=== PATIENT | female | born 1950 | race Caucasian/White ===

== ENCOUNTER 2018-08-29 09:40 | Emergency (ER) | payer MEDICARE, BC, SELFPAY ==
[2018-08-29] VITALS (33 sets, daily range): BP systolic 98–133; BP diastolic 55–78; PULSE 59–85; RESP 10–27; TEMP 37.2; O2SAT 91–100
--- NOTE | 2018-08-29 10:29 | DI.RAD_ITS ---
SYMPTOM/DIAGNOSIS: CHEST PAIN PA AND LATERAL CHEST: Comparison is made with . Heart size and pulmonary vasculature are within normal limits. There is fullness in the superior mediastinum and a superior mediastinal mass cannot be excluded. This may include an enlarged thyroid gland or residual thymic tissue. There is scarring or atelectasis in the left lung base. No focal consolidating infiltrate, effusion or pneumothorax is identified. There is hyperinflation of the lungs suggesting underlying COPD. Mild degenerative changes are seen in the spine. IMPRESSION: 1. No acute pulmonary process. 2. COPD. 3. Fullness in the superior mediastinum. A superior mediastinal mass cannot be excluded. CT scan of the chest with contrast is suggested for further evaluation.
[2018-08-29] MEDS: Lidocaine 2% Viscous 15 ML CUP (10:50)
[2018-08-29] MEDS: Mylanta Suspension 30 ML CUP PO (10:50)
[2018-08-29 11:20] LABS: Abs Immature Grans 0.02 k/cumm (0.0-0.09); Absolute Basophil Count 0.02 k/cumm (0.0-0.2); Absolute Eosinophil Count 0.06 k/cumm (0.0-0.7); Absolute Lymphocyte Count 2.19 k/cumm (1.2-3.4); Absolute Monocyte Count 0.46 k/cumm (0.11-0.7); Absolute Neutrophil Count 4.96 k/cumm (1.2-6.7); Basophils % 0.3; Eosinophils % 0.8; HCT 42.6 % (36.0-46.0); HGB 14.5 g/dL (12.0-15.5); Immature Grans % 0.3; Lymphocytes % 28.4; Mean Corpuscular Hemoglobin 31.7 pg (27.0-33.0); Mean Platelet Volume 9.6 fL (8.0-11.0); Neutrophils % 64.2; Platelet Count 241 x1000/uL (130-400); RBC 4.58 m/cumm (4.00-5.20); White Blood Cell Count 7.71 k/cumm (4.4-10.8)
[2018-08-29 11:38] LABS: ALT 22 U/L (12-78); AST 17 U/L (15-37); Albumin 3.4 g/dL (3.4-5.0); Alkaline Phosphatase 128 U/L (46-116); Anion Gap 8.1 mmol/L (3-11); BUN 11 mg/dL (7-18); Bilirubin, Total 0.7 mg/dL (0.2-1.0); CO2 27.9 mmol/L (21.0-32.0); CREATININE 0.75 mg/dL (0.55-1.02); Calcium 8.9 mg/dL (8.5-10.1); Chloride 105 mmol/L (98-107); Glucose 107 mg/dL (70-100); Magnesium 1.9 mg/dL (1.8-2.4); Potassium 3.8 mmol/L (3.5-5.1); Sodium 141 mmol/L (136-145); Total Protein 7.3 g/dL (6.4-8.2)
[2018-08-29 11:40] LABS: Troponin I < 0.02 ng/mL (0.00-0.06)
--- NOTE | 2018-08-29 12:50 | W.ED.GENAD ---
Discharge Plan Disposition Patient Disposition: HOME Condition: Good Discharge Details Chief Complaint: Chest Pain Clinical Impression: Mediastinal mass Primary Care Provider: Tita Pettit ED Provider: Jamal Woodson Home Meds and New Rx's Prescriptions: Continue ZOVIRAX 2 GM CREAM..G. 1 christian Topical QID PRNQty: 3 RF: 4 No Action epinephrine [EpiPen 2-Adolfo] 0.3 mg/0.3 mL auto-injector 0.3 mg IM ONCE PRNRF: 0 Discharge Instructions Instructions: Thoracic Pain (ED) Additional Instructions: Return immediately to the emergency department for any new or worsening symptoms including any shortness of breath, severe pain, or any further concerns he may have. Otherwise you should follow-up with your primary care provider tomorrow at 3 PM for reassessment and arrangement of further test Referrals: Tita Pettit MD, [place] [Primary Care Provider] - 08/30/18 3:00 pm Discharge Data Discharge Date/Time-TO BE ENTERED AT DEPARTURE: 08/29/18 14:47 Medical Decision Making Patient presenting to the emergency department for chief complaint of chest/abdominal pain. Patient states that this occurred approximately 1 hour after eating lunch yesterday. She states that it was intermittent throughout yesterday and seemed to worsen yesterday evening when she lied down so she had to sleep with additional pillows on her bed. This morning she had some symptoms that have now resolved but called her primary care office who recommended she come to the emergency department. Patient states that she is asymptomatic. Physical exam is unremarkable for any cardiac or respiratory findings and patient does have mild epigastric tenderness. Plan to check labs including troponin for possible silent AR, and radiological imaging of the the chest, otherwise highly suspicious more of GERD/heartburn. After review of initial which show nondiagnostic non-worrisome findings and negative initial troponin patient was reassessed. Patient stated mild episode of return of symptoms and was ordered GI cocktail. After review of chest x-ray that does show an abnormality within the mediastinum and recommendation for CT imaging IV access was obtained and patient went for CT imaging. Patient did state Maalox resolved her symptoms and she is now asymptomatic again Spoke with radiologist regarding CT findings and radiologist states a mediastinal mass that measures 7 x 5 x 10 cm in size. He states secondary findings of gallstones and atelectasis but stated no other acute findings noted. Radiologist did state possibly thyroid in origin so TSH was ordered Given significant mediastinal mass did make attempt to contact patient's primary care provider but they were unavailable to speak on the phone but appointment was set up for patient for tomorrow for further discussion and further testing of evaluation of mediastinal mass that may need nuclear medicine studies for evaluation. Spoke clearly with patient in regards to findings of mediastinal mass with need of further testing and close follow-up. After thorough discussion patient stated no further needs questions or concerns at this time. Patient was encouraged to return to the emergency department for any new or worsening symptoms. HPI General Mode of arrival: ambulatory. Date/Time Provider Initiated Documentation: 08/29/18 10:01. Limitations to Documentation: no limitations. Information obtained by: patient. History of Present Illness 67 year old F presents to the emergency department with the chief complaint of chest pain, with intensity rated at 7. Quality is described as burning, aching and dull, and is localized to the chest and abdomen. Patient reports radiation to back. Patient started experiencing this day(s) (1) and it has been intermittent and now resolved. other things that improve symptom(s), (Upright position) Other factors that worsen symptoms . Related Data Home Medications Medication Instructions Recorded Confirmed Zovirax 1 christian TOPICAL QID PRN #3 script 03/27/13 08/30/18 epinephrine 0.3 mg/0.3 mL 0.3 mg IM ONCE PRN syringe 08/30/18 injection, auto-injector Allergies Allergy/AdvReac Type Severity Reaction Status Date / Time Sulfa (Sulfonamide Allergy Unknown HIVES Unverified 08/29/18 11:43 Antibiotics) General Stated Complaint: Chest Pain DELLA: 2 Review of Systems Constitutional Denies body ache(s), Denies chills and Denies fever(s) Cardiovascular Reports as per HPI, Reports chest pain, Denies diaphoresis, Denies syncope, Denies rapid heart rate, Denies pedal edema, Denies irregular heart rhythm, Denies claudication and Denies dyspnea Respiratory Denies cough and Denies dyspnea Gastrointestinal Reports abdominal pain, Denies melena, Reports heartburn, Denies diarrhea, Denies nausea and Denies vomiting Integumentary/Breasts Denies rash Neurologic Denies confusion, Denies syncope and Denies sensory deficit Psychiatric Denies confusion [facility] Family History Mother Heart disease Smoker Father Neoplasm Smoker Sister No problems noted. Sister No problems noted. Sister Smoker Brother Smoker Brother Hyperlipidemia Brother Benign brain tumor Smoker Brother Smoker Grandfather Heart disease Grandfather Pulmonary emphysema Smoker Grandmother Diabetes Aortic aneurysm Heart disease Grandmother Neoplasm Son No problems noted. Daughter No problems noted. Daughter No problems noted. Daughter No problems noted. Social History household members: spouse and other details: 2 marital status: current occupational status: retired pets and animals: No Smoking/Tobacco Use Status: Never alcohol intake: never substance use type: does not use special courtney needs: No Surgical History Arthroplasty of knee (~12/1988) Colposcopy (08/16/16) Kidney Stone Extraction (~03/1996) Tonsillectomy (~1961) Exam Const General: cooperative, no acute distress and not ill appearing Orientation: alert, awake and oriented x3 HENMT Mouth: moist mucous membranes Resp Effort & Inspection: normal respiratory effort, able to speak in complete sentences and no respiratory distress Cardio Jugular venous pressure: no JVD Rate: regular rate Rhythm: regular rhythm Heart Sounds: S1 normal and S2 normal Bruits: no abdominal aortic bruits and no carotid bruits Pulses: brachial pulses present bilaterally 2+ GI Inspection: normal to inspection Palpation: soft and tender in the epigastrum (mild) Auscultation: normal bowel sounds Skin General skin exam: no rashes or lesions noted Neuro General: alert, awake, oriented x3, moves all extremities and no focal motor deficits Sensory Exam: no sensory deficits noted Course Vital Signs Respiratory Rate 17 08/29/18 09:54 Pulse Oximetry 97 08/29/18 09:54 Temperature 37.2 C 08/29/18 10:10 Temperature Source Skin 08/29/18 10:10 Pulse 73 08/29/18 12:01 Pulse 71 08/29/18 12:10 Respiratory Rate 16 08/29/18 12:13 Respiratory Effort 08/29/18 12:13 Respiratory Depth Normal 08/29/18 12:13 Respiratory Pattern Normal 08/29/18 12:13 Blood Pressure 98/55 L 08/29/18 12:01 Blood Pressure Mean 66 08/29/18 12:01 Pulse Oximetry 94 L 08/29/18 12:10 Oxygen Delivery Method Room Air 08/29/18 10:10 Oxygen Flow Rate 0 08/29/18 10:10 Pain Level 0 08/29/18 12:13 Lab/Test Results Lab/Test Results: Laboratory Tests Range/Units 08/29/18 08/29/18 11:10 11:10 WBC (4.4-10.8) k/cumm 7.71 RBC (4.00-5.20) m/cumm 4.58 Hgb (12.0-15.5) g/dL 14.5 Hct (36.0-46.0) % 42.6 MCV (80-95) fL 93.0 MCH (27.0-33.0) pg 31.7 MCHC (32.0-36.0) g/dL 34.0 RDW (11.7-14.6) % 13.0 Plt Count (130-400) x1000/uL 241 MPV (8.0-11.0) fL 9.6 Immature Gran % 0.3 Neutrophils % 64.2 Lymphocytes % 28.4 Monocytes % 6.0 Eosinophils % 0.8 Basophils % 0.3 Absolute Neutrophils (1.2-6.7) k/cumm 4.96 Absolute Lymphocytes (1.2-3.4) k/cumm 2.19 Absolute Monocytes (0.11-0.7) k/cumm 0.46 Absolute Eosinophils (0.0-0.7) k/cumm 0.06 Absolute Basophils (0.0-0.2) k/cumm 0.02 Sodium (136-145) mmol/L 141 Potassium (3.5-5.1) mmol/L 3.8 Chloride (98-107) mmol/L 105 Carbon Dioxide (21.0-32.0) mmol/L 27.9 Anion Gap (3-11) mmol/L 8.1 BUN (7-18) mg/dL 11 Creatinine (0.55-1.02) mg/dL 0.75 Estimated GFR/1.73 m2 (mL/min/1.73m2) >= 60.00 Glucose (70-100) mg/dL 107 H Calcium (8.5-10.1) mg/dL 8.9 Magnesium (1.8-2.4) mg/dL 1.9 Total Bilirubin (0.2-1.0) mg/dL 0.7 Conjugated Bilirubin (0.00-0.20) mg/dL 0.10 AST (15-37) U/L 17 ALT (12-78) U/L 22 Alkaline Phosphatase (46-116) U/L 128 H Troponin I (0.00-0.06) ng/mL < 0.02 Total Protein (6.4-8.2) g/dL 7.3 Albumin (3.4-5.0) g/dL 3.4
--- NOTE | 2018-08-29 12:57 | ED.GENADUL_ITS ---
Discharge Plan Disposition Patient Disposition: HOME Condition: Good Discharge Details Chief Complaint: Chest Pain Clinical Impression: Mediastinal mass Primary Care Provider: Tita Pettit ED Provider: Jamal Woodson Home Meds and New Rx's Prescriptions: Continue ZOVIRAX 2 GM CREAM..G. 1 christian Topical QID PRNQty: 3 RF: 4 No Action epinephrine [EpiPen 2-Adolfo] 0.3 mg/0.3 mL auto-injector 0.3 mg IM ONCE PRNRF: 0 Discharge Instructions Instructions: Thoracic Pain (ED) Additional Instructions: Return immediately to the emergency department for any new or worsening symptoms including any shortness of breath, severe pain, or any further concerns he may have. Otherwise you should follow-up with your primary care provider tomorrow at 3 PM for reassessment and arrangement of further test Referrals: Tita Pettit MD, [place] [Primary Care Provider] - 08/30/18 3:00 pm Discharge Data Discharge Date/Time-TO BE ENTERED AT DEPARTURE: 08/29/18 14:47 Medical Decision Making Patient presenting to the emergency department for chief complaint of chest/ abdominal pain. Patient states that this occurred approximately 1 hour after eating lunch yesterday. She states that it was intermittent throughout yesterday and seemed to worsen yesterday evening when she lied down so she had to sleep with additional pillows on her bed. This morning she had some symptoms that have now resolved but called her primary care office who recommended she come to the emergency department. Patient states that she is asymptomatic. Physical exam is unremarkable for any cardiac or respiratory findings and patient does have mild epigastric tenderness. Plan to check labs including troponin for possible silent MT, and radiological imaging of the the chest, otherwise highly suspicious more of GERD/heartburn. After review of initial which show nondiagnostic non-worrisome findings and negative initial troponin patient was reassessed. Patient stated mild episode of return of symptoms and was ordered GI cocktail. After review of chest x-ray that does show an abnormality within the mediastinum and recommendation for CT imaging IV access was obtained and patient went for CT imaging. Patient did state Maalox resolved her symptoms and she is now asymptomatic again Spoke with radiologist regarding CT findings and radiologist states a mediastinal mass that measures 7 x 5 x 10 cm in size. He states secondary findings of gallstones and atelectasis but stated no other acute findings noted. Radiologist did state possibly thyroid in origin so TSH was ordered Given significant mediastinal mass did make attempt to contact patient's primary care provider but they were unavailable to speak on the phone but appointment was set up for patient for tomorrow for further discussion and further testing of evaluation of mediastinal mass that may need nuclear medicine studies for evaluation. Spoke clearly with patient in regards to findings of mediastinal mass with need of further testing and close follow-up. After thorough discussion patient stated no further needs questions or concerns at this time. Patient was encouraged to return to the emergency department for any new or worsening symptoms. HPI General Mode of arrival: ambulatory . Date/Time Provider Initiated Documentation: 08/29/18 10:01 . Limitations to Documentation: no limitations . Information obtained by: patient . History of Present Illness 67 year old F presents to the emergency department with the chief complaint of chest pain, with intensity rated at 7. Quality is described as burning, aching and dull, and is localized to the chest and abdomen. Patient reports radiation to back. Patient started experiencing this day(s) (1) and it has been intermittent and now resolved. other things that improve symptom(s), ( Upright position) Other factors that worsen symptoms . Related Data Home Medications Medication Instructions Recorded Confirmed Zovirax 1 christian TOPICAL QID PRN #3 script 03/27/13 08/30/18 epinephrine 0.3 mg/0.3 mL 0.3 mg IM ONCE PRN syringe 08/30/18 injection, auto-injector Allergies Allergy/AdvReac Type Severity Reaction Status Date / Time Sulfa (Sulfonamide Allergy Unknown HIVES Unverified 08/29/18 11:43 Antibiotics) General Stated Complaint: Chest Pain DELLA: 2 Review of Systems Constitutional Denies body ache(s), Denies chills and Denies fever(s) Cardiovascular Reports as per HPI, Reports chest pain, Denies diaphoresis, Denies syncope, Denies rapid heart rate, Denies pedal edema, Denies irregular heart rhythm, Denies claudication and Denies dyspnea Respiratory Denies cough and Denies dyspnea Gastrointestinal Reports abdominal pain, Denies melena, Reports heartburn, Denies diarrhea, Denies nausea and Denies vomiting Integumentary/Breasts Denies rash Neurologic Denies confusion, Denies syncope and Denies sensory deficit Psychiatric Denies confusion [facility] Family History Mother Heart disease Smoker Father Neoplasm Smoker Sister No problems noted. Sister No problems noted. Sister Smoker Brother Smoker Brother Hyperlipidemia Brother Benign brain tumor Smoker Brother Smoker Grandfather Heart disease Grandfather Pulmonary emphysema Smoker Grandmother Diabetes Aortic aneurysm Heart disease Grandmother Neoplasm Son No problems noted. Daughter No problems noted. Daughter No problems noted. Daughter No problems noted. Social History household members: spouse and other details: 2 marital status: current occupational status: retired pets and animals: No Smoking/Tobacco Use Status: Never alcohol intake: never substance use type: does not use special courtney needs: No Surgical History Arthroplasty of knee (~12/1988) Colposcopy (08/16/16) Kidney Stone Extraction (~03/1996) Tonsillectomy (~1961) Exam Const General: cooperative, no acute distress and not ill appearing Orientation: alert, awake and oriented x3 HENMT Mouth: moist mucous membranes Resp Effort & Inspection: normal respiratory effort, able to speak in complete sentences and no respiratory distress Cardio Jugular venous pressure: no JVD Rate: regular rate Rhythm: regular rhythm Heart Sounds: S1 normal and S2 normal Bruits: no abdominal aortic bruits and no carotid bruits Pulses: brachial pulses present bilaterally 2+ GI Inspection: normal to inspection Palpation: soft and tender in the epigastrum (mild) Auscultation: normal bowel sounds Skin General skin exam: no rashes or lesions noted Neuro General: alert, awake, oriented x3, moves all extremities and no focal motor deficits Sensory Exam: no sensory deficits noted Course Vital Signs Respiratory Rate 17 08/29/18 09:54 Pulse Oximetry 97 08/29/18 09:54 Temperature 37.2 C 08/29/18 10:10 Temperature Source Skin 08/29/18 10:10 Pulse 73 08/29/18 12:01 Pulse 71 08/29/18 12:10 Respiratory Rate 16 08/29/18 12:13 Respiratory Effort 08/29/18 12:13 Respiratory Depth Normal 08/29/18 12:13 Respiratory Pattern Normal 08/29/18 12:13 Blood Pressure 98/55 L 08/29/18 12:01 Blood Pressure Mean 66 08/29/18 12:01 Pulse Oximetry 94 L 08/29/18 12:10 Oxygen Delivery Method Room Air 08/29/18 10:10 Oxygen Flow Rate 0 08/29/18 10:10 Pain Level 0 08/29/18 12:13 Lab/Test Results Lab/Test Results: Laboratory Tests Range/Units 08/29/18 08/29/18 11:10 11:10 WBC (4.4-10.8) k/cumm 7.71 RBC (4.00-5.20) m/cumm 4.58 Hgb (12.0-15.5) g/dL 14.5 Hct (36.0-46.0) % 42.6 MCV (80-95) fL 93.0 MCH (27.0-33.0) pg 31.7 MCHC (32.0-36.0) g/dL 34.0 RDW (11.7-14.6) % 13.0 Plt Count (130-400) x1000/uL 241 MPV (8.0-11.0) fL 9.6 Immature Gran % 0.3 Neutrophils % 64.2 Lymphocytes % 28.4 Monocytes % 6.0 Eosinophils % 0.8 Basophils % 0.3 Absolute Neutrophils (1.2-6.7) k/cumm 4.96 Absolute Lymphocytes (1.2-3.4) k/cumm 2.19 Absolute Monocytes (0.11-0.7) k/cumm 0.46 Absolute Eosinophils (0.0-0.7) k/cumm 0.06 Absolute Basophils (0.0-0.2) k/cumm 0.02 Sodium (136-145) mmol/L 141 Potassium (3.5-5.1) mmol/L 3.8 Chloride (98-107) mmol/L 105 Carbon Dioxide (21.0-32.0) mmol/L 27.9 Anion Gap (3-11) mmol/L 8.1 BUN (7-18) mg/dL 11 Creatinine (0.55-1.02) mg/dL 0.75 Estimated GFR/1.73 m2 (mL/min/1.73m2) >= 60.00 Glucose (70-100) mg/dL 107 H Calcium (8.5-10.1) mg/dL 8.9 Magnesium (1.8-2.4) mg/dL 1.9 Total Bilirubin (0.2-1.0) mg/dL 0.7 Conjugated Bilirubin (0.00-0.20) mg/dL 0.10 AST (15-37) U/L 17 ALT (12-78) U/L 22 Alkaline Phosphatase (46-116) U/L 128 H Troponin I (0.00-0.06) ng/mL < 0.02 Total Protein (6.4-8.2) g/dL 7.3 Albumin (3.4-5.0) g/dL 3.4
[2018-08-29] MEDS: Omnipaque 350 MG/ML 100 ML BTL IJ (13:47)
--- NOTE | 2018-08-29 13:48 | DI.CT_ITS ---
SYMPTOM/DIAGNOSIS: F/U ABNL CHEST XRAY, SOB CHEST CT: CT scan of the chest was performed following the uneventful administration of intravenous contrast material. Comparison chest xray is 08/29/18. There is a large mass seen in the superior and anterior mediastinum. It measures 7.7 cm. transverse by 5.2 cm. AP by 10.1 cm. transverse. It is heterogeneous with several areas of decreased attenuation. There also appear to be internal calcifications associated with the mass. The mass does appear to extend superiorly and communicates with the thyroid gland. It displaces the vessels in the mediastinum and the trachea deviates to the right. The thoracic aorta is intact. No aneurysmal dilatation is seen. Heart size is within normal limits. No pericardial effusion is seen. Coronary artery calcifications are appreciated. Mildly enlarged lymph nodes are seen in the mediastinum. There is no pleural effusion. There are bilateral infiltrates in the lower lobes. These may represent atelectasis or pneumonia. No pulmonary nodules are appreciated. No pneumothorax or pleural effusion is present. Upper abdominal images show stones in the gallbladder. No biliary ductal dilatation or adrenal mass is seen. There is a small hiatal hernia. There are degenerative changes seen in the spine. IMPRESSION: Enlarged, heterogeneous, partially calcified, enhancing retrosternal and superior mediastinal mass. It appears to be contiguous with the thyroid gland. This may represent a large thyroid goiter. A thyroid neoplasm cannot be excluded. Other superior and anterior mediastinal masses cannot be excluded including thymic neoplasm or adenopathy. A thyroid uptake and scan may be considered or thyroid ultrasound. Bilateral basilar infiltrates. This may present atelectasis or pneumonia. Cholelithiasis. The findings were discussed with Oren Woodson of the ER on the date of the examination.
[2018-08-29 15:04] LABS: TSH (W/Ref FT4) 1.09 uIU/mL (0.358-3.74)
== END 2018-08-29 14:47 | disposition home or self-care (01) ==
PROVIDERS: Emergency Provider Nurse Practitioner Family; PCP Family Medicine
DX: R91.8 Other nonspecific abnormal finding of lung field (principal); R10.13 Epigastric pain
CPT/HCPCS: 36415; 80053; 80076; 86376; 93005; 99285; 71046; 71260; 83735; 84443; 84484; 85025; 86038; 86140; 86160; 93010; 99284; J3490

== ENCOUNTER 2018-08-29 14:51 | Outpatient (CLI) | payer MEDICARE, BC, SELFPAY ==
[2018-08-29 15:34] LABS: C-Reactive Protein 0.59 mg/dL (0.0-0.3)
[2018-08-30 10:59] LABS: C4 Complement 32 mg/dL (13-39)
[2018-08-30 11:23] LABS: Thyroglobulin Antibody 26 U/mL (<61); Thyroperoxidase Antibody <28 U/mL (<61)
[2018-08-30 12:40] LABS: ANA Interpretation Positive (NEGAT); ANA Titer Pattern 1:160 Speckled
== END 2018-08-29 15:11 ==
PROVIDERS: PCP Family Medicine; Visit Provider Allergy & Immunology
DX: T78.3XXA Angioneurotic edema, initial encounter (principal)
CPT/HCPCS: 36415; 86376; 86038; 86140; 86160

== ENCOUNTER 2018-09-03 01:23 | Outpatient (CLI) | payer MEDICARE, BC, SELFPAY ==
--- NOTE | 2018-09-03 07:41 | DI.US_ITS ---
SYMPTOM/DIAGNOSIS: F/U CT FINDING OF MEDIASTINAL MASS, THYROID ENLARGEMENT, NONTOXIC GOITER, J98.59, E04.9 THYROID ULTRASOUND: Right thyroid lobe measures 50 by 8 by 15 mm. in diameter. Left thyroid lobe measures 50 by 12 by 14 mm. in diameter. The isthmus is about 5 mm. in thickness. There is heterogeneous appearance of the thyroid gland with multiple thyroid nodules seen bilaterally. The largest nodule is a 3 by 2.3 by 1.9 cm. in diameter left lower pole mass. This appears hypervascular. A 19 by 13 by 9 mm. mass which is of mixed echogenicity is seen in the lower pole of the right thyroid lobe. CONCLUSION: Multiple thyroid masses. The findings are consistent with multi nodular goiter but biopsy of a dominant solid mass of the lower pole of the left thyroid lobe should be considered.
[2018-09-03 16:41] LABS: Cholesterol 189 mg/dL (50-200); Ferritin 215 ng/mL (8-388); HDL Cholesterol 48 mg/dL (40-60); LDL CHOLESTEROL 135 mg/dL (<100); Triglyceride 82 mg/dL (30-150)
== END 2018-09-03 01:43 ==
PROVIDERS: PCP Family Medicine; Visit Provider Family Medicine
DX: E66.3 Overweight (principal); M81.0 Age-related osteoporosis without current pathological fracture; E78.00 Pure hypercholesterolemia, unspecified; E55.9 Vitamin D deficiency, unspecified; E04.2 Nontoxic multinodular goiter; E04.8 Other specified nontoxic goiter; R79.89 Other specified abnormal findings of blood chemistry
CPT/HCPCS: 36415; 80061; 82306; 83721; 76536; 82728

== ENCOUNTER 2019-06-11 01:39 | Outpatient (CLI) | payer MEDICARE, BC, SELFPAY ==
[2019-06-11 13:05] LABS: TSH (W/Ref FT4) 6.12 uIU/mL (0.36-3.74)
== END 2019-06-11 01:59 ==
PROVIDERS: PCP Family Medicine; Visit Provider Family Medicine
DX: E07.9 Disorder of thyroid, unspecified (principal)
CPT/HCPCS: 36415; 84439; 84443

== ENCOUNTER 2019-09-30 10:08 | Outpatient (CLI) | payer MEDICARE, BC, SELFPAY ==
[2019-09-30 12:09] LABS: Calculated LDL 170 mg/dL; Cholesterol 250 mg/dL (50-200); HDL Cholesterol 46 mg/dL (40-60); TSH (W/Ref FT4) 7.96 uIU/mL (0.36-3.74); Triglyceride 171 mg/dL (30-150)
[2019-09-30 12:59] LABS: FREE T4 0.67 ng/dL (0.76-1.46)
[2019-10-03 08:52] LABS: 1,25-Dihydroxyvitamin D 58 pg/mL (18-78)
== END 2019-09-30 10:28 ==
PROVIDERS: PCP Family Medicine; Visit Provider Family Medicine
DX: E66.3 Overweight (principal); N20.0 Calculus of kidney; M81.0 Age-related osteoporosis without current pathological fracture; E07.9 Disorder of thyroid, unspecified
CPT/HCPCS: 36415; 80061; 82306; 82652; 84439; 84443

== ENCOUNTER 2019-09-30 16:42 | Outpatient (REF) | payer MEDICARE, BC, SELFPAY ==
--- NOTE | 2019-09-30 10:00 | PAPFT_PTH ---
PATIENT: Georgiana Moncada LOC: [facility]#:[id number] AGE/SX: 69/F ROOM: RE09/30/[address]: Tita Pettit MD, DC : 1950 BED: DIS: 09/30/2019 SPEC #: [id number] RECD: 09/30/19 18:45 STATUS: NELLA REQ #: [id number] JESS: 09/30/19 10:[address]: Tita Pettit [facility] Cytology RECD BY: Pia Nobles Tissues: 1 - CX/ENDOCX FOR PAP SMEARS Procedures: PAP THIN PREP/UVM Screening HPV DNA PROBE Comments: [id number]
== END 2019-09-30 17:02 ==
LOC: LBN 16:42
PROVIDERS: PCP Family Medicine; Visit Provider Family Medicine
DX: Z12.4 Encounter for screening for malignant neoplasm of cervix (principal); Z11.51 Encounter for screening for human papillomavirus (HPV)
CPT/HCPCS: 88142; 87624

== ENCOUNTER 2020-01-14 02:00 | Outpatient (CLI) | payer MEDICARE, BC, SELFPAY ==
--- NOTE | 2020-01-14 10:15 | DI.US_ITS ---
EXAM: US THYROID CLINICAL HISTORY: s/p surgery for nlarged thryoid, left r thyroid J98.59, E04.9 GOITER TECHNIQUE: Ultrasound performed using standard protocol. COMPARISON: US thyroid from 09/03/2018 FINDINGS: Thyroid ultrasound performed according to the usual protocol. The patient has reportedly had prior l eft thyroidectomy. Right thyroid lobe measures 45 x 14 x 15 millimeters. There is a 19 millimeter i n diameter complex mass, predominantly solid and isoechoic, of the inferior right thyroid lobe. This is essentially unchanged in comparison with prior study of 09/03/2018. No significant new intrathyr oidal mass is identified. Sub cm nodules again noted in upper pole of right thyroid lobe. IMPRESSION: Stable appearance of 19 millimeter inferior pole right thyroid lobe mass. Twelve month follow-up ult rasound recommended. DATA REPOSITORY:
== END 2020-01-14 02:20 ==
PROVIDERS: PCP Family Medicine; Visit Provider Family Medicine
DX: E04.9 Nontoxic goiter, unspecified (principal); J98.59 Other diseases of mediastinum, not elsewhere classified; Z98.890 Other specified postprocedural states
CPT/HCPCS: 76536

== ENCOUNTER 2020-01-22 11:06 | Outpatient (CLI) | payer MEDICARE, BC, SELFPAY ==
[2020-01-22 12:35] LABS: TSH (W/Ref FT4) 8.69 uIU/mL (0.36-3.74)
[2020-01-23 11:03] LABS: Parathyroid Hormone,Intact 63 pg/mL (19-88)
[2020-01-24 17:13] LABS: PTH-Related Peptide 0.4 pmol/L (< or = 4.2)
== END 2020-01-22 11:26 ==
PROVIDERS: PCP Family Medicine; Visit Provider Family Medicine
DX: E04.9 Nontoxic goiter, unspecified (principal); E34.9 Endocrine disorder, unspecified
CPT/HCPCS: 36415; 82397; 83970; 84439; 84443

== ENCOUNTER 2020-07-20 10:40 | Outpatient (CLI) | payer MEDICARE, BC, SELFPAY ==
[2020-07-20 12:46] LABS: FREE T4 0.69 ng/dL (0.76-1.46); TSH (W/Ref FT4) 6.96 uIU/mL (0.36-3.74)
== END 2020-07-20 11:00 ==
PROVIDERS: PCP Family Medicine; Visit Provider Family Medicine
DX: E04.9 Nontoxic goiter, unspecified (principal)
CPT/HCPCS: 36415; 84439; 84443

== ENCOUNTER 2020-09-25 02:50 | Outpatient (CLI) | payer MEDICARE, BC, SELFPAY ==
[2020-09-29 20:21] LABS: Patient Race White; SARS-CoV-2 RNA Undetected (Undetected); SARS-CoV-2 Specimen Source Nasal
== END 2020-09-25 03:10 ==
PROVIDERS: PCP Family Medicine; Visit Provider Family Medicine
DX: Z11.59 Encounter for screening for other viral diseases (principal)
CPT/HCPCS: U0003

== ENCOUNTER 2020-10-05 12:56 | Outpatient (REF) | payer MEDICARE, BC, SELFPAY ==
--- NOTE | 2020-10-05 10:30 | PAPFT_PTH ---
PATIENT: Georgiana Moncada LOC: [facility]#:[id number] AGE/SX: 70/F ROOM: RE10/05/[address]: Tita Pettit MD, DC : 1950 BED: DIS: 10/05/2020 SPEC #: [id number] RECD: 10/05/20 12:59 STATUS: NELLA REQ #: [id number] JESS: 10/05/20 10:[address]: Tita Pettit DEPT: [facility] Cytology RECD BY: Pia Nobles Tissues: 1 - CX/ENDOCX FOR PAP SMEARS Procedures: PAP THIN PREP/UVM Screening HPV DNA PROBE Comments: [id number] ([facility])
== END 2020-10-05 13:16 ==
LOC: LBN 12:56
PROVIDERS: PCP Family Medicine; Visit Provider Family Medicine
DX: Z12.4 Encounter for screening for malignant neoplasm of cervix (principal); Z87.42 Personal history of other diseases of the female genital tract; Z11.51 Encounter for screening for human papillomavirus (HPV); R87.810 Cervical high risk human papillomavirus (HPV) DNA test positive
CPT/HCPCS: 88142; 87624

== ENCOUNTER 2021-06-11 15:11 | Outpatient (CLI) | payer MEDICARE, BC, SELFPAY ==
[2021-06-11 16:56] LABS: TSH (W/Ref FT4) 5.35 uIU/mL (0.36-3.74)
[2021-06-11 17:12] LABS: FREE T4 0.69 ng/dL (0.76-1.46)
[2021-06-14 05:04] LABS: Vitamin D 25 Total 67.3 ng/mL (30-100)
== END 2021-06-11 15:12 | disposition home or self-care (01) ==
LOC: LBO 15:16
PROVIDERS: PCP Family Medicine; Visit Provider Family Medicine
DX: E03.9 Hypothyroidism, unspecified (principal); M81.0 Age-related osteoporosis without current pathological fracture; G47.00 Insomnia, unspecified
CPT/HCPCS: 36415; 82306; 84439; 84443

== ENCOUNTER 2021-11-09 11:08 | Outpatient (REF) | payer MEDICARE, BC, SELFPAY ==
--- NOTE | 2021-11-09 09:45 | PAPFT_PTH ---
PATIENT: Georgiana Moncada LOC: [facility] U#:[id number] AGE/SX: 71/F ROOM: RE11/09/[address]: Tita Pettit MD, DC : 1950 BED: DIS: 11/09/2021 SPEC #: [id number] RECD: 11/09/21 13:05 STATUS: NELLA ASHELY #: [id number] JESS: 11/09/21 09:[address]: Suleiman Davis DEPT: [facility]ENDING [facility] TO [facility] Cytology RECD BY: Pia Nobles ENTERED: 11/09/21 13:06 SP TYPE: PAPFT OTHR DR: Tita Pettit MD, DC Tissues: 1 - CX/ENDOCX FOR PAP SMEARS Procedures: PAP THIN PREP/UVM Screening HPV DNA PROBE Comments: [id number]
== END 2021-11-09 11:09 | disposition home or self-care (01) ==
LOC: LBN 11:08
PROVIDERS: PCP Emergency Medicine; Visit Provider Family Medicine
DX: Z01.419 Encounter for gynecological examination (general) (routine) without abnormal findings (principal); Z12.4 Encounter for screening for malignant neoplasm of cervix; Z11.51 Encounter for screening for human papillomavirus (HPV); R87.610 Atypical squamous cells of undetermined significance on cytologic smear of cervix (ASC-US); R87.810 Cervical high risk human papillomavirus (HPV) DNA test positive; Z87.42 Personal history of other diseases of the female genital tract
CPT/HCPCS: 88142; 87624

== ENCOUNTER 2021-11-17 02:28 | Outpatient (CLI) | payer MEDICARE, BC, SELFPAY ==
[2021-11-17 07:31] LABS: HCT 45.7 % (36.0-46.0); HGB 15.4 g/dL (11.2-15.7); MCH 31.9 pg (27.0-33.0); MCHC 33.7 % (32.0-36.0); MCV 94.6 fL (80-95); MPV 9.4 fL (8.0-11.0); Platelet Count 262 10^3/uL (130-400); RBC 4.83 10^6/uL (3.93-5.22); RDW 12.4 % (11.7-14.6); RDW-SD 43.4 fL; WBC 5.96 10^3/uL (4.4-10.8)
[2021-11-17 08:41] LABS: ALT 45 U/L (14-59); AST 24 U/L (15-37); Alkaline Phosphatase 115 U/L (46-116); Anion Gap 8.7 mmol/L (3-11); BUN 10 mg/dL (7-18); CO2 28.3 mmol/L (21.0-32.0); CREATININE 0.8 mg/dL (0.55-1.02); Calcium 9.3 mg/dL (8.5-10.1); Calculated LDL 122 mg/dL (<100); Chloride 105 mmol/L (98-107); Cholesterol 203 mg/dL (<200); Glucose 112 mg/dL (74-106); HDL Cholesterol 50 mg/dL (40-60); Potassium 4.1 mmol/L (3.5-5.1); Sodium 142 mmol/L (136-145); TSH (W/Ref FT4) 6.25 uIU/mL (0.36-3.74); Total Protein 7.3 g/dL (6.4-8.2); Triglyceride 159 mg/dL (<150)
[2021-11-17 08:58] LABS: FREE T4 0.75 ng/dL (0.76-1.46)
== END 2021-11-17 02:29 | disposition home or self-care (01) ==
LOC: LBO 02:29
PROVIDERS: PCP Family Medicine; Visit Provider Family Medicine
DX: K44.9 Diaphragmatic hernia without obstruction or gangrene (principal); M81.0 Age-related osteoporosis without current pathological fracture; R73.09 Other abnormal glucose; Z98.890 Other specified postprocedural states; E66.3 Overweight; E03.9 Hypothyroidism, unspecified; G47.00 Insomnia, unspecified
CPT/HCPCS: 36415; 80053; 80061; 85027; 84439; 84443

== ENCOUNTER 2021-11-29 15:02 | Outpatient (REF) | payer MEDICARE, SELFPAY ==
--- NOTE | 2021-11-29 14:35 | ENDO_PTH ---
PATIENT: Georgiana Moncada LOC: [facility] U#:[id number] AGE/SX: 71/F ROOM: RE11/29/[address]: Kim Lugo DO : 1950 BED: DIS: 11/29/2021 SPEC #: [id number] RECD: 11/29/21 16:50 STATUS: NELLA REQ #: [id number] JESS: 11/29/21 14:[address]: Kim Lugo DEPT: Surgical Specimen RECD BY: Pia Nobles ENTERED: 11/29/21 16:50 SP TYPE: Endo OTHR DR: Tita Pettit MD, DC Tissues: 1 - ENDOCERVICAL BX/CURRETTE Procedures: GROSS AND MICRO LEVEL 4 Comments: [id number]
== END 2021-11-29 15:03 | disposition home or self-care (01) ==
LOC: LBN 15:02
PROVIDERS: PCP Family Medicine; Visit Provider Obstetrics & Gynecology
DX: R87.610 Atypical squamous cells of undetermined significance on cytologic smear of cervix (ASC-US) (principal); R87.810 Cervical high risk human papillomavirus (HPV) DNA test positive
CPT/HCPCS: 88305

== ENCOUNTER 2021-12-22 09:47 | Outpatient (CLI) | payer MEDICARE, SELFPAY ==
--- NOTE | 2021-12-22 07:30 | DI.US_ITS ---
Exam(s) US LOWER EXTREMITY VENOUS RT EXAM: US LOWER EXTREMITY VENOUS RT CLINICAL HISTORY: strong family hx of dvt, r/o DVT,RT SWELLING. TECHNIQUE: Lower extremity venous ultrasound performed using grayscale, color-flow, and spectral Do ppler analysis. COMPARISON: No exams were available for comparison FINDINGS: The common femoral, femoral and popliteal veins demonstrate normal compressibility, augmentation, and color Doppler. The posterior tibial veins are patent. No saphenous vein thrombosis or other superfi cial venous thrombosis is seen. No hematoma or Cota's cyst is seen. IMPRESSION: Negative lower extremity ultrasound. No evidence of DVT. DATA REPOSITORY:
== END 2021-12-22 10:07 ==
PROVIDERS: PCP Family Medicine; Visit Provider Family Medicine
DX: R22.41 Localized swelling, mass and lump, right lower limb (principal); M79.661 Pain in right lower leg; Z82.49 Family history of ischemic heart disease and other diseases of the circulatory system
CPT/HCPCS: 93971

== ENCOUNTER 2022-02-14 09:42 | Outpatient (CLI) | payer MEDICARE, SELFPAY | END 2022-02-14 09:43 | disposition home or self-care (01) | LOC: DIORS 09:42 | PROVIDERS: PCP Family Medicine; Referring Provider Family Medicine; Visit Provider Student in an Organized Health Care Education/Training Program | DX: M25.561 Pain in right knee (principal); M17.11 Unilateral primary osteoarthritis, right knee | CPT/HCPCS: 99203 ==

== ENCOUNTER 2022-08-05 01:45 | Outpatient (CLI) | payer MEDICARE, SELFPAY ==
[2022-08-05 11:33] LABS: FREE T4 0.66 ng/dL (0.76-1.46); Glucose 104 mg/dL (74-106); TSH (W/Ref FT4) 6.66 uIU/mL (0.36-3.74)
[2022-08-05 12:13] LABS: Hemoglobin A1C 5.8 % (<5.7)
[2022-08-08 05:37] LABS: Vitamin D 25 Total 70.3 ng/mL (30-100)
== END 2022-08-05 01:46 | disposition home or self-care (01) ==
LOC: LBO 01:45
PROVIDERS: PCP Family Medicine; Visit Provider Internal Medicine Endocrinology, Diabetes & Metabolism
DX: E03.9 Hypothyroidism, unspecified (principal); Z98.890 Other specified postprocedural states; M81.0 Age-related osteoporosis without current pathological fracture; R73.09 Other abnormal glucose
CPT/HCPCS: 36415; 82306; 82947; 83036; 84439; 84443

== ENCOUNTER 2022-09-08 16:36 | Outpatient (REF) | payer MEDICARE, SELFPAY ==
[2022-09-08 16:52] LABS: Bilirubin Negative (Negative); Blood Small (Negative); Clarity Sl Cloudy (Clear); Glucose Negative (Negative); Ketones Negative (Negative); Leukocyte Esterase Moderate (Negative); Nitrite Positive (Negative); Specific Gravity 1.025 (1.005-1.025); Urobilinogen 0.2 EU/dL (Up TO 0.2); pH 5.5 (5-8)
[2022-09-08 17:03] LABS: C & S Indicated? Yes; WBC >50 HPF (0-5)
== END 2022-09-08 16:37 | disposition home or self-care (01) ==
LOC: LBN 16:36
PROVIDERS: PCP Family Medicine; Visit Provider Family Medicine
DX: R31.9 Hematuria, unspecified (principal)
CPT/HCPCS: 87077; 81003; 81015; 87086; 87186

== ENCOUNTER 2023-01-19 11:51 | Outpatient (REF) | payer MEDICARE, SELFPAY ==
--- NOTE | 2023-01-19 10:30 | PAPFT_PTH ---
PATIENT: Georgiana Moncada LOC: [facility]#:[id number] AGE/SX: 72/F ROOM: RE01/19/[address]: Tita Pettit MD, DC : 1950 BED: DIS: 01/19/2023 SPEC #: [id number] RECD: 01/20/23 12:52 STATUS: NELLA REQ #: [id number] JESS: 01/19/23 10:[address]: Tita Pettit DEPT: [facility] Cytology RECD BY: Pia Nobles Tissues: 1 - CX/ENDOCX FOR PAP SMEARS Procedures: PAP THIN PREP/UVM Screening HPV DNA PROBE Comments: [id number] (HPV 16 & 18/45)
== END 2023-01-19 11:52 | disposition home or self-care (01) ==
LOC: LBN 11:51
PROVIDERS: PCP Family Medicine; Visit Provider Family Medicine
DX: Z11.51 Encounter for screening for human papillomavirus (HPV); R87.610 Atypical squamous cells of undetermined significance on cytologic smear of cervix (ASC-US); R87.810 Cervical high risk human papillomavirus (HPV) DNA test positive; Z01.419 Encounter for gynecological examination (general) (routine) without abnormal findings
CPT/HCPCS: 88142; 87624

== ENCOUNTER → 2023-08-01 01:03 | Outpatient (CLI) | payer MEDICARE, SELFPAY ==
--- NOTE | 2023-08-01 | DI.US_ITS ---
Exam(s) US THYROID EXAM: US THYROID CLINICAL HISTORY: MULTINODULAR GOITER, E07.9. TECHNIQUE: Ultrasound thyroid performed using standard protocol. COMPARISON: US US THYROID from 01/14/2020 FINDINGS: ISTHMUS: 2 mm RIGHT LOBE: Size: 5.2 x 1.9 x 1.8 cm Echogenicity: Normal. Vascularity: Normal. Nodules: Multiple nodules. Largest nodule mid to lower pole measuring 2.2 x 2.0 x 2.0 cm. It is mixed cystic and solid, solid components isoechoic. The nodule previously was mostly solid. Wider than maya l, smoothly marginated, punctate echogenic foci. TR 4. FNA recommended. LEFT LOBE: Status post left thyroidectomy. OTHER FINDINGS: No adenopathy. IMPRESSION: Change in appearance of a nodule at the lower pole of the right lobe of the thyroid, now mainly cysti c with solid components. TR 4, FNA recommended. DATA REPOSITORY:
== END ==
PROVIDERS: PCP Family Medicine; Visit Provider Internal Medicine Endocrinology, Diabetes & Metabolism
DX: Z90.89 Acquired absence of other organs (principal); E07.9 Disorder of thyroid, unspecified
CPT/HCPCS: 76536

== ENCOUNTER 2023-08-01 02:40 | Outpatient (CLI) | payer MEDICARE, SELFPAY ==
[2023-08-01 07:46] LABS: Hemoglobin A1C 5.9 % (<5.7)
[2023-08-01 08:25] LABS: TSH (W/Ref FT4) 11.39 uIU/mL (0.36-3.74)
[2023-08-01 08:58] LABS: FREE T4 0.66 ng/dL (0.76-1.46)
[2023-08-01 19:30] LABS: T3, Total 127 ng/dL (97-169)
== END 2023-08-01 02:41 | disposition home or self-care (01) ==
PROVIDERS: PCP Family Medicine; Visit Provider Family Medicine
DX: G47.00 Insomnia, unspecified (principal); E11.9 Type 2 diabetes mellitus without complications
CPT/HCPCS: 36415; 83036; 84439; 84443; 84480

== ENCOUNTER 2024-03-18 15:57 | Outpatient (REF) | payer MEDICARE, SELFPAY ==
--- NOTE | 2024-03-18 13:45 | PAPFT_PTH ---
PATIENT: Georgiana Moncada LOC: [facility]#:[id number] AGE/SX: 73/F ROOM: RE03/18/[address]: Tita Pettit MD, DC : 1950 BED: DIS: 03/18/2024 SPEC #: [id number] RECD: 03/19/24 12:55 STATUS: NELLA REQ #: [id number] JESS: 03/18/24 13:[address]: Tita Pettit DEPT: [facility]CLUD[facility] Cytology RECD BY: Pia Nobles Tissues: 1 - CX/ENDOCX FOR PAP SMEARS Procedures: PAP THIN PREP/UVM Screening HPV DNA PROBE Comments: [id number] (HPV 16 & 18/45)
== END 2024-03-18 15:58 | disposition home or self-care (01) ==
LOC: LBN 15:57
PROVIDERS: PCP Family Medicine; Visit Provider Family Medicine
DX: Z11.51 Encounter for screening for human papillomavirus (HPV) (principal); Z01.419 Encounter for gynecological examination (general) (routine) without abnormal findings
CPT/HCPCS: 88142; 87624

== ENCOUNTER → 2024-05-22 10:29 | Outpatient (CLI) | payer MEDICARE, SELFPAY ==
--- NOTE | 2024-05-22 10:15 | DI.RAD_ITS ---
Exam(s) XR KNEE LT 3V AP,LAT,SUKH EXAM: XR KNEE LT 3V AP,LAT,SUKH CLINICAL HISTORY: left knee pain M25.562. TECHNIQUE: 2D digital imaging was performed of the left knee. Three images were obtained. AP, late ral and PA tunnel views were obtained. COMPARISON: No priors for comparison. FINDINGS: BONES: No acute fracture is present. No bony destructive lesion is seen. JOINTS: Small osteophytes are seen at the posterior patella. There is mild narrowing of the medial f emoral tibial joint. There is a small joint effusion. No loose body. SOFT TISSUE: Normal. IMPRESSION: Mild degenerative changes of the knee. Small joint effusion. DATA REPOSITORY: RADIATION DOSE DELIVERED:
== END ==
PROVIDERS: PCP Family Medicine; Visit Provider Family Medicine
DX: M25.562 Pain in left knee (principal); M25.40 Effusion, unspecified joint
CPT/HCPCS: 73562

== ENCOUNTER 2024-07-17 01:46 | Outpatient (CLI) | payer MEDICARE, SELFPAY ==
--- OUTSIDE RECORDS SUMMARY | 2024-07-17 01:48 | XMS_ITS | Encounter Summary ---
Author Organization [facility] Address [address] [place] [address] Care Team Providers Care Sustainability Project Manager Name Role Phone Tita Pettit MD Primary Care Provider [phone] Encounter Details Date Type Department Care Team (Latest Contact Info) Description 07/18/2016 10:41 EDT - 07/18/2016 23:59 EDT Hospital Encounter [address] [address] Unknown, Provider, Discharge Disposition: Home or Self Care Social History Tobacco Use Types Packs/Day Years Used Date Smoking Tobacco: Never Assessed Sex and Gender Information Value Date Recorded Sex Assigned at Not on file Gender Identity Female 08/01/2022 9:32 EDT Sexual Orientation Not on file documented as of this encounter Medications at Time of Discharge Medication Sig Dispensed Refills Start Date End Date INV - 977 PRO-OMEGA CAPSULES MAINTENANCE DOSE # 15 caps Take 2 Tabs by mouth daily. 650 epa/450 dha 12/06/2005 ASCORBATE CALCIUM (VITAMIN C ORAL) Take by mouth. 8 Calcium Acetate (PHOSLO) 667 mg Cap Take 1,334 mg by mouth 3 times daily. 09/12/2018 calcium-vitamin D (OS-ALBERTO D) 500 mg(1,250mg) -200 unit per tablet Take 1 Tab by mouth 2 times daily with meals. 09/12/2018 multivitamin (THERAGRAN) per tablet Take by mouth. 12/06/2005 06/01/2020 polyethylene glycol (MIRALAX) 17 gram/dose powder Take by mouth. 01/02/2006 06/01/2020 UNABLE TO FIND Med Name: l lysine 09/12/2018 documented as of this encounter Discharge Disposition Disposition Code Departure Means Destination Home or Self Halfway documented in this encounter Plan of Treatment Not on file documented as of this encounter Visit Diagnoses Not on filedocumented in this encounter Care Teams Sustainability Project Manager Relationship Specialty Start Date End Date Tita Pettit MD [address] [place] [address] [address] [place] [address] PCP - General 09/01/11 documented as of this encounter
--- OUTSIDE RECORDS SUMMARY | 2024-07-17 01:48 | XMS_ITS | Encounter Summary ---
Author Organization [facility] Address [address] [place] [address] Care Team Providers Care Information Security Analyst Name Role Phone Unavailable Primary Care Provider Unavailabl e Encounter Details Date Type Department Care Team (Late st Contact Info) Description 03/18/2010 Results Only [facility] Laboratory Services - [facility] ([facility] [address], [place] [address] Tita Pettit MD [facility] [address] [place] [address] Social History Tobacco Use Types Packs/Day Years Used Date Smoking Tobacco: Never Assessed Sex and Gender Information Value Date Recorded Sex Assigned at Not on file Gender Identity Female 08/01/2022 9:32 EDT Sexual Orientation Not on file documented as of this encounter Plan of Treatment Not on file documented as of this encounter Procedures Procedure Name Priority Date/Time Associated Diagnosis Comments CYTOPATHOLOGY Routine 03/18/2010 0:00 EDT documented in this encounter Results * CYTOPATHOLOGY (03/18/2010 0:00 EDT) Pathology Report: CYTOPATHOLOGY REPORT ? Reports generated via electronic interface contain original data; ? however they are lacking the format of the original report. ? Caution should be taken when reading/interpreti ng unformatted reports. ? Name: ? GEORGIANA ARAYA ? Accession #: ? [id number] ? : ? 1950 (Age: 59) ??F ?Collect Date: ? 03/18/2010 ? Location: ? [facility] ? Receive Date: ? 03/22/2010 ? Provider: ?TITA PETTIT MD ? Copy to: ? Specimen/Source: ?Pap Test, Endocervix, ThinPrep Imaging System with ? manual evaluation ? Last Menstrual Period: ? Menstrual/Pregnanc y Status: ? Post Menopausal ? Other: ? HPVDX - HPV testing requested regardless of diagnosis on current ThinPrep Pap ?? test. ? SPECIMEN ADEQUACY ? Satisfactory for Evaluation ? - transformation zone component present ? GENERAL CATEGORIZATION ? Negative for Intraepithelial Lesion or Malignancy ? Document reviewed and electronically signed by: ? Renate Davenport, [place](ASCP)(IAC) ? Report Date: ??03/30/2010 16:18 ? End of Report ? [facility] 03/18/2010 03/22/2010 Tita Pettit MD PATHOLOGY ORDERABLE S [facility] [address] [place] [address] documented in this encounter Visit Diagnoses Not on filedocumented in this encounter
--- OUTSIDE RECORDS SUMMARY | 2024-07-17 01:48 | XMS_ITS | Encounter Summary ---
Author Organization [facility] Address [address] [place] [address] Care Team Providers Care Creel Selector Name Role Phone Tita Pettit MD Primary Care Provider [phone] Encounter Details Date Type Department Care Team (Latest Contact Info) Description 05/18/2017 14:46 EDT - 05/18/2017 23:59 EDT Hospital Encounter [facility] [address] [place] [address] [place] [address] [place] [address] Discharge Disposition: Auto Discharge Social History Tobacco Use Types Packs/Day Years Used Date Smoking Tobacco: Never Assessed Sex and Gender Information Value Date Recorded Sex Assigned at Not on file Gender Identity Female 08/01/2022 9:32 EDT Sexual Orientation Not on file documented as of this encounter Discharge Diagnoses Diagnosis M25.511 Pain in right shoulder-M25.511[ICD-10-CM] S40.012A Contusion of left shoulder, initial encounter-S40.012A[ICD-10-CM] documented in this encounter Medications at Time of Discharge [...] Discharge Disposition Disposition Code Departure Means Destination Auto Discharge Home documented in this encounter Plan of Treatment Not on file documented as of this encounter Visit Diagnoses Not on filedocumented in this encounter Care Teams Creel Selector Relationship Specialty Start Date End Date Tita Pettit MD [address] [place] [address] PCP - General 09/01/11 documented as of this encounter
--- OUTSIDE RECORDS SUMMARY | 2024-07-17 01:48 | XMS_ITS | Encounter Summary ---
Author Organization [facility] Address [address] [place] [address] Care Team Providers Care Signal Supervisor Name Role Phone Tita Pettit MD Primary Care Provider [phone] Encounter Details Date Type Department Care Team (Late st Contact Info) Description 09/12/2011 [facility] Hand & Upper Extremity Program - [place] [facility] [place] [address] Escobar Biswas Social History Tobacco Use Types Packs/Day Years Used Date Smoking Tobacco: Never Assessed Sex and Gender Information Value Date Recorded Sex Assigned at Not on file Gender Identity Female 08/01/2022 9:32 EDT Sexual Orientation Not on file documented as of this encounter Plan of Treatment Not on file documented as of this encounter Visit Diagnoses Not on filedocumented in this encounter Historical Medications * This list may reflect changes made after this encounter. Medication Sig Dispensed Refills Start Date End Date ASCORBATE CALCIUM (VITAMIN C ORAL) Take by mouth. 09/12/2018 added in this encounter Care Teams Signal Supervisor Relationship Specialty Start Date End Date Tita Pettit MD [address] [place] [address] [address] [place] [phone] PCP - General 09/01/11 documented as of this encounter
--- OUTSIDE RECORDS SUMMARY | 2024-07-17 01:48 | XMS_ITS | Referral Summary ---
Author Organization [facility] Address [address] [place] [address] Care Team Providers Care Battery Tester Name Role Phone Tita Pettit MD Primary Care Provider [phone] Kirstie Aguilar MD Unavailable [phone] Allergies Active Allergy Reactions Criticality Noted Date Comments Sulfa (Sulfonamide Antibiotics) Hives 08/20 swelling Medications Medication Sig Dispensed Refills Start Date End Date Status EPINEPHrine (EPIPEN) 0.3 mg/0.3 mL injection Inject 0.3 mL into the muscle once as needed. Active INV - 977 PRO-OMEGA CAPSULES MAINTENANCE DOSE # 15 caps Take 2 Tabs by mouth daily. 650 epa/450 dha 12/06/2005 Active ascorbic acid, vitamin C, (VITAMIN C) 250 mg tablet Take 700 mg by mouth daily. Active cholecalciferol, Vitamin D3, 1,000 unit tabletIndications:d3 k2 combination Take 5 Tablets by mouth daily. Active famotidine (PEPCID) 20 mg tablet Take 10 mg by mouth daily. Active Magnesium 250 mg tablet Take 500 mg by mouth daily. Active predniSONE (DELTASONE) 10 mg tablet Take 2.5 mg by mouth as needed. Active cetirizine (ZYRTEC) 10 mg tablet Take 5 mg by mouth daily. Active Multivitamins with Minerals tablet tabletIndications:2 tabs is one serving Take 2 Tablets by mouth daily. Active NONFORMULARYIndicatio ns:turkey tail mushroom 1 Tablet daily. [place] Tail Mushroom Active NONFORMULARYIndicatio ns:Astaxanthin 4 mg daily. Active calcium citrate 200 mg (950 mg)Indications:takes on occasion, 2-3x a week Take 600 mg by mouth daily. Active ASCORBATE [id number] ORAL Take 1 Capsule by mouth daily. Active levothyroxine (SYNTHROID) 25 mcg tablet Take 1 Tablet by mouth daily. 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 Pain in joint, lower leg 06/15/2021 Palpitations 06/15/2021 Skin lesion 06/15/2021 Subclinical hypothyroidism 06/15/2021 Cervical high risk human pap illomavirus (HPV) DNA test positive 09/16/2015 Osteoporosis 06/07/2013 Cholelithiasis without obstruction 04/29/2013 Carpal tunnel syndrome 12/22/2011 Reflex sympathetic dystrophy of upper extremity 09/07/2011 Fracture of radius 09/02/2011 Resolved Problems Problem Noted Date Diagnosed Date Resolved Date Hypothyroid 06/15/2021 06/15/2021 S/P thyroid surgery 06/15/2021 06/15/20 21 Substernal goiter 09/14/2018 06/01/2020 Immunizations Name Administration Dates Next Due Td (Adult) 5 Lf Vaccine (TEN IVAC) Preservative Free =>7yo IM 05/18/2009 Social History Tobacco Use Types Packs/Day Years Used Date Smoking Tobacco: Never Smokeless Tobacco: Never Alcohol Use Standard Drinks/Week Comments No 0 (1 standard drink = 0.6 oz pur e alcohol) rare social. Maybe 2x a year Interpersonal Safety Answer Date Record ed Physically Hurt Never 06/21/2020 Verbally Threaten Not on file 06/21/2020 Sex and Gender Information Value Date Recorded Sex Assigned at Not on file Gender Identity Female 08/01/2022 9:32 EDT Sexual Orientation Not on file Last Filed Vital Signs Vital Sign Reading Time Taken Comments Blood Pressure 122/80 08/10/2023 1139 EDT Pulse 80 08/10/2022 1504 EDT Temperature - - Respiratory Rate - - Oxygen Saturation - - Inhaled Oxygen Concentration - - Weight 77.8 kg (171 lb 9.6 oz) 08/10/2023 1139 E DT Height 163.8 cm (5' 4.5) 08/10/2023 1139 EDT Body Mass Index 29 08/10/2023 1139 EDT Functional Status Functional Status Response Date of Assess ment Because of a physical, menta l, or emotional condition, does this person have difficulty doing errands alone such as visiting a doctor's office or shopping? No 09/12/2018 Cognitive Status Response Date of Assessm ent Because of a physical, menta l, or emotional condition, does this person have serious difficulty concentrating, remembering, or making decisions? No 09/12/2018 Plan of Treatment Not on file Hemmett[place]a, Georgiana A Personal/Family Self [address] [place] [phone] [place], Georgiana A Personal/Family Self [address] [place] [phone] Hemmett[place]iana perea A Personal/Family Self 1950 [address] [place] [address] Care Teams Battery Tester Relationship Specialty Start Date End Date Tita Pettit MD [address] [place] [phone] PCP - General 09/01/11 Kirstie Aguilar MD [address] [place] [address] [place] [address] Endocrinology, Diabetes and Metabolism 12/16/21
--- OUTSIDE RECORDS SUMMARY | 2024-07-17 01:48 | XMS_ITS | Encounter Summary ---
Author Organization [facility] Address [address] [place] [address] Care Team Providers Care Manager Outpatient Name Role Phone Tita Pettit MD Primary Care Provider [phone] Kirstie Aguilar MD Unavailable [phone] Encounter Details Date Type Department Care Team (Late st Contact Info) Description 08/10/2023 12:50 EDT Phlebotomy Only [facility] - Outpatient Phlebotomy Drawing [address] [place] [address] Lab, [facility] Op Phlebotomy Hypothyroidism (acquired); Multiple thyroid nodules Social History Tobacco Use Types Packs/Day Years [...] on file documented as of this encounter Functional Status Functional Status Response Date of [...] concentrating, remembering, or making decisions? No 09/12/2018 documented as of this encounter Plan of Treatment Not on file documented as of this encounter Procedures Procedure Name Priority Date/Time Associated Diagnosis Comments EMANUEL BURNETT Today 08/10/2023 13:04 EDT Hypothyroidism (acquired) Multiple thyroid nodules documented in this encounter Results * EMANUEL BURNETT (08/10/2023 13:04 EDT) Bridget TestEmanuel SEE NOTE 08/15/2023 19:17 EDT [facility] Comment: Test ?Result ??Flag ??Unit ?RefValue Iodine/Creat Ratio, Random, U ??Iodine Concentration ?SEE NOTE ?Interpretation ?[employer] (WHO) ?CRITERIA FOR ASSESSING IODINE STATUS ?Children >6 Years Old and Adults: ?<20 mcg/L - Insufficient intake, severe iodine ?deficiency ?20-49 mcg/L - Insufficient intake, moderate iodine ?deficiency ?50-99 mcg/L - Insufficient intake, mild iodine ?deficiency ?100-199 mcg/L - Adequate intake, adequate nutrition ?200-299 mcg/L - Above intake requirements, may ?pose a slight risk of more than adequate nutrition ?>299 mcg/L - Excessive intake, risk of adverse ?health consequences ? Women: ?<150 mcg/L - Insufficient intake ?150-249 mcg/L - Adequate intake ?250-499 mcg/L - Above requirements ?>499 mcg/L - Excessive intake ?Lactating Women: ?<100 mcg/L - Insufficient intake ?>99 mcg/L - Adequate intake ? ADDITIONAL INFORMATION ?This test was developed and its performance characteristics ?determined by [facility] in a manner consistent with CLIA ?requirements. This test has not been cleared or approved by ?the U.S. Food and Drug Administration. ??Iodine Concentration ?238 ? mcg/L ?Iodine/Creat Ratio, U ? 209 ? mcg/g Cr ??<584 ?Creatinine, Random, U ? 114 ? mg/dL ? 16 - 326 ?Test Performed by: ?[facility] [employer] [facility] ?[address] [place] [address] ?Truck Body Builder Apprentice: Geraldo Lee M.D. Ph.D.; CLIA# [id number] ?Test Performed by: ?[facility] [employer] [facility] ?[address] [place] [address] ?Truck Body Builder Apprentice: Geraldo Lee M.D. Ph.D.; CLIA# [id number] Blood URINE / Unknown Non-Lab Collect / Unknown 08/10/2023 13:04 EDT 08/10/2023 13:40 EDT Kirstie Aguilar MD CHEMISTRY & BLOOD GA S ORDERABLES [facility] [address] [place] [address] documented in this encounter Visit Diagnoses Diagnosis Hypothyroidism (acquired) Unspecified hypothyroidism Multiple thyroid nodules Nontoxic multinodular goiter documented in this encounter Care Teams Manager Outpatient Relationship Specialty Start Date End Date Tita Pettit MD [address] [place] [phone] PCP - General 09/01/11 Kirstie Aguilar MD [address] [place] [address] [address] [place] [phone] Endocrinology, Diabetes and Metabolism 12/16/21 documented as of this encounter
--- OUTSIDE RECORDS SUMMARY | 2024-07-17 01:48 | XMS_ITS | Encounter Summary ---
Author Organization [facility] Address [address] [place] [address] Care Team Providers Care Preschool Teacher Aide Name Role Phone Tita Pettit MD Primary Care Provider [phone] Reason for Visit * Reason Comments Wrist Pain Left Encounter Details Date Type Department Care Team (Late st Contact Info) Description 01/24/2012 12:00 EST Office Visit [facility] Hand & Upper Extremity Program [place] [address] [place] [address] Suleiman Kelly MD [address] [place] [phone] Carpal tunnel syndrome; RSD upper limb Discharge Disposition: Auto Discharge Social History Tobacco Use Types Packs/Day Years Used Date Smoking Tobacco: Never Assessed Sex and Gender Information Value Date Recorded Sex Assigned at Not on file Gender Identity Female 08/01/2022 9:32 EDT Sexual Orientation Not on file documented as of this encounter Discharge Disposition Disposition Code Departure Means Destination Auto Discharge documented in this encounter Progress Notes * Suleiman Kelly MD - 01/24/2012 1239 EST This office note has been dictated. documented in this encounter Procedure Notes * Suleiman Kelly MD - 01/24/2012 1432 EST [facility] ELECTRODIAGNOSTIC MEDICINE CONSULTATION SERVICE DATE: 01/24/2012 REQUESTING PHYSICIAN: Escobar Biswas MD. ATTENDING PHYSICIAN: Suleiman Kelly MD. PRIMARY PHYSICIAN: Tita Pettit MD. HISTORY: For full details of this very pleasant lady's history, I refer to Dr Jovon Biswas's comprehensive initial evaluation. Briefly, she fell in June of 2011 suffering a left radial and ulnar fracture at the wrist. It was complicated by numbness in her hand and complex regional pain syndrome.I have several notes from Dr Biswas regarding these issues. She is here today due to ongoing numbn ess and tingling in her hand. The movement in her hand has improved substantially as has the swelling and hypersensitivity. For past medical history, problem list and medication list, I refer to the [facility] intake. FAMILY HISTORY: Noncontributory. REVIEW OF SYSTEMS: Please see intake format. This is reviewed with the patient and signed. OBJECTIVE: She is alert, cooperative, oriented x3. She is 5 feet 5 inches, 160 pounds. Her cervical range of motion is intact. Upper extremity range of motion is intact with the exception of her left hand having some tightness. She cannot fully abduct all of her fingers away from each other to the full excursion that she chantal her right hand. She is not quite able to make a very tight fist with hyperflexion of her DIP andPIP joints compared to the right side. She clearly has loss of sensibility in the left median sensory distribution. Ulnar and radial seem fine. Her biceps, triceps, brachioradialis reflexes are intact. In order to investigate the status of her proximal and peripheral nerves the plan is to perform electrodiagnostics. NERVE CONDUCTION STUDY: Nerve Distal Latency Evoked Nerve Conduction Comments (NI<3.6) Response Velocity Amplitude Left median motor 7.7 msec 1.0 mV (severe temporal dispersion seen) Left median sensory 11.4 msec 4 mV (digit 3) Left ulnar motor 2.9 msec 7.4 mV 65 mps Left radial sensory 2.3 msec 44 mV Left ulnar sensory 3.3 msec 16 mV EMG REPORT: A monopolar exploring electrode was used with standard technique. Muscles examined included the left abductor pollicis brevis, opponens pollicis, first dorsal interosseous, abductor digiti quinti, extensor indices proprius, extensor pollicis brevis, brachioradialis, pronator teres, flexor carpi ulnaris and biceps. FINDINGS: There was 1+ increased insertional activity seen in the abductor pollicis brevis and opponens pollicis with 1+ ongoing positive sharp wave and fibrillation potentials extending into the resting phase. All other muscles tested normally. IMPRESSION: This is an interesting and abnormal study. 1. The patient has post-fracture left hand complex regional pain syndrome that really has largely resolved. 2. She has moderate to severe left carpal tunnel syndrome. 3. The ulnar nerve and radial nerves tested normally. I had a discussion with the patient regarding these findings. We discussed some of the standard treatment options and issues and the patient will be followed by Dr Biswas today. Electronically Signed by Suleiman Kelly MD 01/25/2012 15:06 Suleiman Kelly MD - Suleiman Kelly MD P - CB Job ID: SM Doc ID: [id number] Ext Doc ID: [id number] cc: MD Escobar Zavala MD documented in this encounter Plan of Treatment Not on file documented as of this encounter Visit Diagnoses Diagnosis Carpal tunnel syndrome RSD upper limb Reflex sympathetic dystrophy of the upper limb documented in this encounter Care Teams Preschool Teacher Aide Relationship Specialty Start Date End Date Tita Pettit MD [address] [place] [address] [address] [place] [address] PCP - General 09/01/11 documented as of this encounter
--- OUTSIDE RECORDS SUMMARY | 2024-07-17 01:48 | XMS_ITS | Encounter Summary ---
Author Organization [facility] Address [address] [place] [address] Care Team Providers Care Director Park Name Role Phone Tita Pettit MD Primary Care Provider [phone] Reason for Visit * Reason Comments Thyroid Problem Encounter Details Date Type Department Care Team (Latest Contact Info) Description 06/15/2021 9:45 EDT Office Visit [facility] End[facility]ology [address] [place] [address] Kirstie Aguilar MD [address] [facility] [address] [place] [address] Subclinical hypothyroidism (Primary Dx); Right thyroid nodule Social History Tobacco Use Types Packs/Day Years [...] on file documented as of this encounter Last Filed Vital Signs Vital Sign Reading Time Taken Comments Blood Pressure 118/74 06/15/2021 0940 EDT Pulse 70 06/15/2021 0940 EDT Temperature - - Respiratory Rate - - Oxygen Saturation - - Inhaled Oxygen Concentration - - Weight 75.8 kg (167 lb) 06/15/2021 0940 EDT Height 163.8 cm (5' 4.5) 06/15/2021 0940 EDT Body Mass Index 28.22 06/15/2021 0940 EDT documented in this encounter Functional Status Functional Status Response [...] No 09/12/2018 documented as of this encounter Progress Notes * Kirstie Gonzalez MD - 06/15/2021 0945 EDT Images from the original note were not included. 06/15/2021 FOLLOW-UP PATIENT: Georgiana Araya CHIEF COMPLAINT Thyroid Problem HISTORY OF PRESENT ILLNESS Georgiana Araya is a very pleasant 70 y.o. female who presents for follow up for subclinical hypothyroidism. Last seen in May of 2020. Has been healthy since last year. Feels raspy voice. She is concern that she is not able to lose weight easily. She did labs at [facility], TSH 5.35 uIU/mL. Denies neck pain. HPI PAST HISTORY Past Medical History: Diagnosis Date ??? Angio-edema ??? Kidney stones ??? Substernal goiter 09/14/2018 Past Surgical History: Procedure Laterality Date ??? ANTERIOR CRUCIATE LIGAMENT REPAIR ??? KIDNEY STONE SURGERY ??? TONSILLECTOMY Family History Problem Relation Age of Onset ??? Heart Disease Mother ??? Cancer Father Social History Tobacco Use ??? Smoking status: Never Smoker ??? Smokeless tobacco: Never Used Substance Use Topics ??? Alcohol use: No Comment: rare social. Maybe 2x a year ??? Drug use: No MEDICATIONS Current Outpatient Medications Medication Sig Dispense Refill ??? ASCORBATE [id number] ORAL Take 1 capsule by mouth daily. ??? ascorbic acid, vitamin C, (VITAMIN C) 250 mg tablet Take 700 mg by mouth daily. ??? calcium citrate 200 mg (950 mg) Take 600 mg by mouth daily. (Patient not taking: Reported on 06/15/2021) ??? cetirizine (ZYRTEC) 10 mg tablet Take 5 mg by mouth daily. (Patient not taking: Reported on 06/15/2021) ??? cholecalciferol, Vitamin D3, 1,000 unit tablet Take 5,000 Units by mouth daily. ??? EPINEPHrine (EPIPEN) 0.3 mg/0.3 mL injection Inject 0.3 mg into the muscle once as needed. ??? famotidine (PEPCID) 20 mg tablet Take 10 mg by mouth daily. (Patient not taking: Reported on 06/15/2021) ??? INV - 977 PRO-OMEGA CAPSULES MAINTENANCE DOSE # 15 caps Take 2 Tabs by mouth daily. 650 epa/450dha ??? Magnesium 250 mg tablet Take 500 mg by mouth daily. ??? Multivitamins with Minerals tablet tablet Take 2 Tabs by mouth daily. ??? NONFORMULARY 1 Tab daily. ??? NONFORMULARY 4 mg daily. ??? predniSONE (DELTASONE) 10 mg tablet Take 2.5 mg by mouth as needed. (Patient not taking: Reported on 06/15/2021) No current facility-administered medications for this visit. ALLERGIES Allergies Allergen Reactions ??? Sulfa (Sulfonamide Antibiotics) Hives swelling REVIEW OF SYSTEMS ROS Stated above VITALS Vitals: 06/15/21 0940 BP: 118/74 Pulse: 70 Weight: 75.8 kg (167 lb) Height: 163.8 cm (64.5) PHYSICAL EXAM Vitals reviewed.Vitals reviewed. Constitutional: Appearance: Normal appearance. Eyes: Pupils: Pupils are equal, round, and reactive to light. Cardiovascular: Rate and Rhythm: Normal rate and regular rhythm. Musculoskeletal: Cervical back: Neck supple. No rigidity. Lymphadenopathy: Cervical: No cervical adenopathy. Neurological: General: No focal deficit present. Mental Status: She is alert. Psychiatric: Mood and Affect: Mood normal. Thyroid ultrasound procedure Comparison: 01/14/2020 and Aug. Indication: follow-up thyroid nodules Physician performing: Dr. Aguilar Report Multiple real-time longitudinal and transverse images were obtained using a high-resolution ultrasound with a linear transducer. The thyroid gland appears heterogeneous in texture. Right lobe: Sagittal 4.1 cm x AP 1.4 cm x transverse 1.6 cm. Isthmus: 0.2 cm in AP dimension. Left lobe: not visualized. Nodule 1: There is a mix cystic right nodule located in the superior-mid thyroid lobe , size: Sagittal 1.9 cm x AP 1.4 cm x transverse 1.3 cm. ( in 01/14/20 at [facility] nodule was measured up to 1.9 cm inmax dimension) Impression Right thyroid nodule stable in size, compared to 2017 and 2019. Biopsy was recommended as this nodule was never biopsied, but patient has decided to observe. Electronically signed by Kirstie Walters MD ASSESSMENT ICD-10-CM ICD-9-CM 1. Subclinical hypothyroidism E03.9 244.8 2. Right thyroid nodule E04.1 241.0 Subclinical hypothyroidism: TSH stable, very midl symptoms. No need fo rtherapy, patient would liketo remain off medication. She is aware of symptoms of hypothyroidism. Also I advised that if LDL is increasingly, that could be an indicator to start thyroid replacement. Check TSH before next apt. Thyroid nodule: mix cystic, similar to 2018 and 2019. Based on size meets criteria for biopsy, but based on behavior seems very stable. Patient has decided to manage this conservatevely. Will do US in office next year. All questions answered. I spent a total of 45 minutes on the date of this encounter meeting with the patient and reviewing documentation/coordinating care as described in the above note. This was separate from any procedures performed at the time of the visit. Thyroid US. Electronically signed by MD Kirstie West MD 06/15/2021 12:25 Addendum Has had left lobectomy. Normal Pathology, done in January of 2019. Electronically signed by Kirstie Walters MD documented in this encounter Plan of Treatment Not on file documented as of this encounter Visit Diagnoses Diagnosis Subclinical hypothyroidism- Primary Other specified acquired hypothyroidism Right thyroid nodule Nontoxic uninodular goiter documented in this encounter Historical Medications * This list may reflect changes made after this encounter. Medication Sig Dispensed Refills Start Date End Date ASCORBATE [id number] ORAL Take 1 Capsule by mouth daily. added in this encounter Care Teams Director Park Relationship Specialty Start Date End Date Tita Pettit MD [address] [place] [id number] PCP - General 09/01/11 documented as of this encounter
--- OUTSIDE RECORDS SUMMARY | 2024-07-17 01:48 | XMS_ITS | Encounter Summary ---
Author Organization [facility] Address [address] [place] [address] Care Team Providers Care Information Specialist Name Role Phone Tita Pettit MD Primary Care Provider [phone] Kirstie Aguilar MD Unavailable [phone] Encounter Details Date Type Department Care Team (Late st Contact Info) Description 01/22/2020 Lab Requisition [facility] Pathology & Laboratory Medicine - [facility] [address] [place] [address] Unknown, Provider, Social History Tobacco Use Types Packs/Day Years Used Date Smoking Tobacco: Never Smokeless Tobacco: Never Alcohol Use Standard Drinks/Week Comments No 0 (1 standard drink = 0.6 oz pur e alcohol) Sex and Gender Information Value Date Recorded [...] Procedure Name Priority Date/Time Associated Diagnosis Comments PTH INTACT Routine 01/22/2020 11:25 EST documented in this encounter Results * PTH INTACT (01/22/2020 11:25 EST) Intact PTH 63 19 - 88 pg/mL 01/23/2020 10:58 EST [facility] Blood VENOUS BLOOD / Unknown 01/22/2020 11:25 EST 01/22/2020 15:45 EST Provider Unknown CHEMISTRY & BLOOD GA S ORDERABLES [facility] [address] [place] [address] documented in this encounter Visit Diagnoses Not on filedocumented in this encounter Care Teams Information Specialist Relationship Specialty Start Date End Date Tita Pettit MD [address] [place] [phone] PCP - General 09/01/11 Kirstie Aguilar MD [address] [facility] [address] [place] [address] Endocrinology, Diabetes and Metabolism 12/16/21 documented as of this encounter
--- OUTSIDE RECORDS SUMMARY | 2024-07-17 01:48 | XMS_ITS | Encounter Summary ---
Author Organization [facility] Address [address] [place] [address] Care Team Providers Care Air Conditioning Manager Name Role Phone Tita Pettit MD Primary Care Provider [phone] Kirstie Aguilar MD Unavailable [phone] Reason for Visit * Reason Onset Date Comments Labs Only 06/10/2022 Encounter Details Date Type Department Care Team (Late st Contact Info) Description 06/10/2022 Telephone [facility] Endocrinology [address] [place] [address] Kirstie Aguilar MD [address] [facility] [address] [place] [address] Labs Only Social History Tobacco Use Types Packs/Day Years [...] No 09/12/2018 documented as of this encounter Miscellaneous Notes * Telephone Encounter - Meeta Centeno - 06/10/2022 1031 EDT Patient called to r/s appt and ask about labs. She would like to ask Dr. Aguilar to add a T4 to [facility] order as well. Please call the patient the patient and let her know if we are not able to do this. Fax the lab orders to [facility] please. documented in this encounter Plan of Treatment Not on file documented as of this encounter Visit Diagnoses Not on filedocumented in this encounter Care Teams Air Conditioning Manager Relationship Specialty Start Date End Date Tita Pettit MD [address] [place] [address] [address] [place] [phone] PCP - General 09/01/11 Kirstie Aguilar MD [address] [place] [address] [address] [place] [phone] Endocrinology, Diabetes and Metabolism 12/16/21 documented as of this encounter
--- OUTSIDE RECORDS SUMMARY | 2024-07-17 01:48 | XMS_ITS | Encounter Summary ---
Author Organization [facility] Address [address] [place] [address] Care Team Providers Care Upholstery Repairer Name Role Phone Tita Pettit MD Primary Care Provider [phone] Reason for Visit * Reason Onset Date Comments Diabetes 06/25/2020 title fixed Encounter Details Date Type Department Care Team (Late st Contact Info) Description 06/25/2020 Telephone [facility] Endocrinology [address] [place] [address] Dolores Aguiar, RN [address] [place] [address] Diabetes (title fixed) Social History Tobacco Use Types Packs/Day Years [...] encounter Miscellaneous Notes * Telephone Encounter - Dolores Aguiar RN - 06/26/2020 1523 EDT Letter sent * Telephone Encounter - Dolores Aguiar RN - 06/25/2020 0943 EDT Utr; phone number has been disconnected * Telephone Encounter - Dolores Aguiar RN - 06/25/2020 0941 EDT ----- Message from Kirstie Walters MD sent at 06/23/2020 9:53 EDT ----- Please let her know that I apologize for the typo mistake, her note is corrected and now reflects subclinical hypothyroidism. Dr. Aguilar ----- Message ----- From: Dolores Aguiar RN Sent: 06/23/2020 9:42 EDT To: Kirstie Walters MD documented in this encounter Plan of Treatment Not on file documented as of this encounter Visit Diagnoses Not on filedocumented in this encounter Care Teams Upholstery Repairer Relationship Specialty Start Date End Date Tita Pettit MD [address] [place] [address] [address] [place] [address] PCP - General 09/01/11 documented as of this encounter
--- OUTSIDE RECORDS SUMMARY | 2024-07-17 01:48 | XMS_ITS | Encounter Summary ---
Author Organization [facility] Address [address] [place] [address] Care Team Providers Care Human Resources Benefits Administrator Name Role Phone Michael Pettit MD Primary Care Provider [phone] Encounter Details Date Type Department Care Team (Late st Contact Info) Description 05/07/2015 Results Only [facility] [phone] Michael Pettit MD [address] [place] [phone] Social History Tobacco Use Types Packs/Day Years Used Date Smoking Tobacco: Never Assessed Sex and Gender Information Value Date Recorded Sex Assigned at Not on file Gender Identity Female 08/01/2022 9:32 EDT Sexual Orientation Not on file documented as of this encounter Plan of Treatment Not on file documented as of this encounter Procedures Procedure Name Priority Date/Time Associated Diagnosis Comments PAP TEST- RESULT ONLY Routine 05/07/2015 0:00 EDT documented in this encounter Results * PAP TEST- RESULT ONLY (05/07/2015 0:00 EDT) Pathology Report: CYTOPATHOLOGY REPORT Reports generated via electronic interface contain original data; however they are lacking the format of the original report. Caution should be taken when reading/interpreti ng unformatted reports. Name: ? EVANJANINERICCARDONOEMY ? Accession #: ? [id number] ? : ? 1950 (Age: 64) ??F ?Collect Date: ? 05/07/2015 ? Location: ? [facility] ? Receive Date: ? 05/08/2015 ? Provider: MICHAEL PETTIT MD Copy to: ? Final Report SPECIMEN ADEQUACY ? Satisfactory for Evaluation - assessment of transformation zone component not applicable ( e.g. atrophy, vaginal sample, hysterectomy) - scant squamous epithelial component secondary to excessive inflammation GENERAL CATEGORIZATION ? Negative for Intraepithelial Lesion or Malignancy ?? Menstrual/Pregnanc y Status: ??Post Menopausal Previous Gynecologic Pathology: HPV: + 2012, 2013 Specimen/Source: ??Pap Test, Cervix/Endocervix, ThinPrep Imaging System with manual evaluation Document reviewed and electronically signed by: ? Darci De La Torre, SHERRI(ASCP) ? Report ??Date: 05/15/2015 09:49 HPV with Pap Test ? Date Ordered: ? 05/15/2015 ? Status: ?? Signed Out ?Date Complete: ? 05/19/2015 ? By: ??System Interface ? Date Reported: ? 05/19/2015 ? Interpretation RESULT: Positive for high or intermediate risk HPV. E6 OR E7 mRNA from one or more types of HPV types 16,18,31, 33,35,39,45,51,52, 56,58,59,66, and 68 is detected by evp business development mediated amplification. High and intermediate risk HPV types are associated with most squamous intraepithelial lesions and cervical cancers. Comments Document reviewed and electronically signed by: ? System Interface ? Report date: 05/19/2015 By the signature above, the attending physician certifies that he/she has personally conducted a gross and/or microscopic examination of the described specimens and rendered or confirmed the above diagnosis. End of Report [facility] 05/07/2015 05/08/2015 Michael Pettit MD PATHOLOGY ORDERABLE S [facility] [address] [place] [address] documented in this encounter Visit Diagnoses Not on filedocumented in this encounter Care Teams Human Resources Benefits Administrator Relationship Specialty Start Date End Date Michael Pettit MD [address] [place] [phone] PCP - General 09/01/11 documented as of this encounter
--- OUTSIDE RECORDS SUMMARY | 2024-07-17 01:48 | XMS_ITS | Encounter Summary ---
Author Organization [facility] Address [address] [place] [address] Care Team Providers Care Air Intercept Controller Supervisor Name Role Phone Tita Pettit MD Primary Care Provider [phone] Encounter Details Date Type Department Care Team (Late st Contact Info) Description 04/22/2014 Results Only [facility] - [facility] [address] [place] [address] Tita Pettit MD [address] [place] [address] [address] [place] [address] Social History Tobacco Use Types [...] Diagnosis Comments PAP TEST- RESULT ONLY Routine 04/22/2014 0:00 EDT documented in this encounter Results * PAP TEST- RESULT ONLY (04/22/2014 0:00 EDT) Pathology Report: CYTOPATHOLOGY REPORT Reports generated via electronic interface contain original data; however they are lacking the format of the original report. Caution should be taken when reading/interpreti ng unformatted reports. Name: ? GEORGIANA ARAYA ? Accession #: ? [id number] ? : ? 1950 (Age: 63) ??F ?Collect Date: ? 04/22/2014 ? Location: ? [facility] ? Receive Date: ? 04/23/2014 ? Provider: TITA PETTIT MD Copy to: ? Final Report SPECIMEN ADEQUACY ? Satisfactory for Evaluation - transformation zone component present - scant squamous epithelial component GENERAL CATEGORIZATION ? Negative for Intraepithelial Lesion or Malignancy ?? Menstrual/Pregnanc y Status: ??Post Menopausal Previous Gynecologic Pathology: HPV: + 04/30/13 Specimen/Source: ??Pap Test, Cervix/Endocervix, ThinPrep Imaging System with manual evaluation Document reviewed and electronically signed by: ? SHERRI Bay(ASCP) ? Report ??Date: 04/29/2014 08:39 HPV with Pap Test ? Date Ordered: ? 04/28/2014 ? Status: ?? Signed Out ?Date Complete: ? 05/01/2014 ? By: ??System Interface ? Date Reported: ? 05/01/2014 ? Interpretation RESULT: Positive for high or intermediate risk HPV. E6 OR E7 mRNA from one or more types of HPV types 16,18,31, 33,35,39,45,51,52, 56,58,59,66, and 68 is detected by shipper/receiver mediated amplification. High and intermediate risk HPV types are associated with most squamous intraepithelial lesions and cervical cancers. Comments Document reviewed and electronically signed by: ? System Interface ? Report date: 05/01/2014 By the signature above, the attending physician certifies that he/she has personally conducted a gross and/or microscopic examination of the described specimens and rendered or confirmed the above diagnosis. End of Report JASON BEJARANO 04/22/2014 04/23/2014 Tita Pettit MD PATHOLOGY ORDERABLE S [facility] [address] [place] [address] documented in this encounter Visit Diagnoses Not on filedocumented in this encounter Care Teams Air Intercept Controller Supervisor Relationship Specialty Start Date End Date Tita Pettit MD [address] [place] [phone] PCP - General 09/01/11 documented as of this encounter
--- OUTSIDE RECORDS SUMMARY | 2024-07-17 01:48 | XMS_ITS | Encounter Summary ---
Author Organization [facility] Address [address] [place] [address] Care Team Providers Care Hvac Tech Name Role Phone Tita Pettit MD Primary Care Provider [phone] Kirstie Aguilar MD Unavailable [phone] Encounter Details Date Type Department Care Team (Late st Contact Info) Description 10/03/2019 Lab Requisition [facility] Pathology & Laboratory Medicine - [facility] [address] [place] [address] Tita Pettit MD [address] [place] [address] [address] [place] [phone] Encounter for other general examination Social History Tobacco Use Types Packs/Day Years [...] Name Priority Date/Time Associated Diagnosis Comments PAP TEST Today 09/30/2019 10:00 EST Encounter for other general examination HPV DNA DETECTION WITH GENOTYPING, PCR Today 09/30/2019 10:00 EST Encounter for other general examination documented in this encounter Results * (ABNORMAL) HUMAN PAPILLOMAVIRUS (HPV) DETECTION-HIGH RISK TYPES (09/30/2019 10:00 EST) HPV other High Risk types, PCR Positive( A) Negative 10/10/2019 14:51 EST [facility] Comment:E6 OR E7 mRNA from o ne or more types of HPV types 16,18,31,33,35,39,45,51,52,56,58,59,66, and 68 is detected by plastic battery assembler mediated amplification. High and intermediate risk HPV types are associated with most squamous intraepithelial lesions and cervical cancers. Papanicolaou smear specimen (specimen) CERVIX UTERI STRUCTURE / Unknown 09/30/2019 10:00 EST 10/10/2019 8:39 EST Tita Pettit MD MICROBIOLOGY - [facility] ORDERABLES [facility] [address] [place] [address] * PAP TEST (09/30/2019 10:00 EST) Specimens A. Cervix and/or Endocervix, , ThinPrep Imaging System with Manual Evaluation 10/04/2019 14:13 [facility] Specimen Adequacy Satisfactory for Evaluation - assessment of transformation zone component not applicable ( e.g. atrophy, vaginal sample, hysterectomy) Scant squamous epithelial component 10/04/2019 14:13 [facility] General Categorization Negative for intraepithelial lesion or malignancy 10/04/2019 14:13 [facility] Attestation . 10/04/2019 14:13 [facility] at 1413 Clinical History NONE 10/04/20 19 14:13 EST [facility] Scanned Images 10/04/2019 14:13 EST [facility] Papanicolaou smear specimen (specimen) CERVIX UTERI STRUCTURE / Unknown 09/30/2019 10:00 EST 10/03/2019 13:01 EST Tita Pettit MD PATHOLOGY ORDERABLE S Performing Organization Address City/State/[facility] Co de Phone Number [facility] [address] [place] [address] documented in this encounter Visit Diagnoses Diagnosis Encounter for other general examination documented in this encounter Care Teams Hvac Tech Relationship Specialty Start Date End Date Tita Pettit MD [address] [place] [address] [address] [place] [address] PCP - General 09/01/11 Kirstie Aguilar MD [address] [place] [address] [address] [place] [phone] Endocrinology, Diabetes and Metabolism 12/16/21 documented as of this encounter
--- OUTSIDE RECORDS SUMMARY | 2024-07-17 01:48 | XMS_ITS | Encounter Summary ---
Author Organization [facility] Address [address] [place] [address] Care Team Providers Care Community Health Nursing Director Name Role Phone Tita Pettit MD Primary Care Provider Kirstie Aguilar MD Unavailable [phone] Reason for Visit * Reason Comments Thyroid Problem Encounter Details Date Type Department Care Team (Late st Contact Info) Description 08/10/2022 15:15 EDT Office Visit [facility] Endocrinology [address] [place], [place] [id number] Kirstie Aguilar MD [address] [facility]- [address] [place] [address] Nontoxic multinodular goiter (Primary Dx); Subclinical hypothyroidism; Prediabetes Social History Tobacco Use Types Packs/Day Years [...] Sign Reading Time Taken Comments Blood Pressure 106/64 08/10/2022 1504 EDT Pulse 80 08/10/2022 1504 EDT Temperature - - Respiratory Rate - - Oxygen Saturation - - Inhaled Oxygen Concentration - - Weight 76.2 kg (168 lb) 08/10/2022 1504 EDT Height 163.8 cm (5' 4.5) 08/10/2022 1504 EDT Body Mass Index 28.39 08/10/2022 1504 EDT documented in this encounter Functional Status [...] as of this encounter Progress Notes * Kalee Charles RN - 08/10/2022 1515 EDT MNG tsh ordered letter mailed * Kirstie Gonzalez MD - 08/10/2022 1515 EDT Images from the original note were not included. 08/10/2022 FOLLOW-UP PATIENT: Georgiana Araya CHIEF COMPLAINT Thyroid Problem HISTORY OF PRESENT ILLNESS Georgiana Araya is a very pleasant 71 y.o. female who presents for follow up for subclinical hypothyroidism and thyroid nodule. Last seen in May of 2021. Did labs in Jul: TSH 6.6, FT4 0.66, D3 70.3, A1c 5.8%. Did labs on biotin. Has had knee pain. Has been healthy since last year. She did labs at [facility] in May of 2021: TSH 5.35 uIU/mL. Denies neck pain. Has hair loss but is not different than years ago, no constipation, no fragile nails. Hx of left lobectomy with a benign biopsy in 2019. PAST HISTORY Past Medical History: Diagnosis Date ??? Angio-edema ??? Kidney stones ??? S/P thyroid surgery 06/15/2021 ??? Substernal goiter 09/14/2018 Past Surgical History: [...] Medications Medication Sig Dispense Refill ??? ASCORBATE [id number]-[id number]-[id number] ORAL Take 1 capsule by mouth daily. (Patient not taking: Reported on 08/10/2022) ??? ascorbic acid, vitamin C, (VITAMIN C) 250 mg tablet Take 700 mg by mouth daily. (Patient not taking: Reported on 08/10/2022) ??? calcium citrate 200 mg (950 mg) Take 600 mg by mouth daily. (Patient not taking: Reported on 08/10/2022) ??? cetirizine (ZYRTEC) 10 mg tablet Take 5 mg by mouth daily. (Patient not taking: Reported on 08/10/2022) ??? cholecalciferol, Vitamin D3, 1,000 unit tablet Take 5,000 Units by mouth daily. ??? EPINEPHrine (EPIPEN) 0.3 mg/0.3 mL injection Inject 0.3 mg into the muscle once as needed. ??? famotidine (PEPCID) 20 mg tablet Take 10 mg by mouth daily. (Patient not taking: Reported on 08/10/2022) ??? INV - 977 [employer]CE [...] as needed. (Patient not taking: Reported on 08/10/2022) No current facility-administered medications for this visit. ALLERGIES Allergies Allergen Reactions ??? Sulfa (Sulfonamide Antibiotics) Hives swelling REVIEW OF SYSTEMS Constitutional: Negative for weight loss. Musculoskeletal: Positive for joint pain. Endo/Heme/Allergies: Mild hair loss not changing VITALS Vitals: 08/10/22 1504 BP: 106/64 Pulse: 80 Weight: 76.2 kg (168 lb) Height: 163.8 cm (64.5) PHYSICAL EXAM [...] Affect: Mood normal. Thyroid ultrasound procedure Comparison: 05/2021, 01/14/2020 and Aug. Indication: follow-up thyroid nodules Physician performing: Dr. Aguilar Report Multiple real-time longitudinal and transverse images were obtained using a high-resolution ultrasound with a linear transducer. The thyroid gland appears heterogeneous in texture. Right lobe: Sagittal 5.1 cm x AP 1.7 cm x transverse 1.3 cm. Isthmus: none Left lobe: not visualized. Nodule 1: There is a spongiform nodule located in the superior mid right lobe, size: Sagittal 0.9 cm x AP 0.5 cm x transverse 0.6 cm. Color Doppler 2+ Nodule 2: There is a spongiform nodule located in the mid thyroid lobe , size: Sagittal 0.9 cm x AP0.7 cm x transverse 1.0 cm. Color Doppler 1+. Nodule 3: There is a mix cystic right nodule located in the mid-inferior thyroid lobe , size: Sagittal 2.4 cm x AP 1.8 cm x transverse 1.9 cm. 2020 ( 1.9 x 1.4 x 1.3 cm) ( in 01/14/20 at [facility] nodule was measured up to 1.9 cm in max dimension) Nodule 4: There is a mix cystic right nodule located in the mid-superior thyroid lobe , size: Sagittal 0.7 cm x AP 0.5 cm x transverse 0.6 cm. Color Doppler Impression Multinodular goiter. Nodules have increased in size compared to prior years. Has 2 nodules smaller than 1 cm with benign features (spongiform). 1 subcentimer mix nodule with benign features. Dominant mid-inferior thyroid nodule has grown and I have recommended biopsy. Electronically signed by Kirstie Walters MD ASSESSMENT ICD-10-CM ICD-9-CM 1. Nontoxic multinodular goiter E04.2 241.1 2. Subclinical hypothyroidism E03.8 244.8 3. Prediabetes R73.03 790.29 Subclinical hypothyroidism: labs were done while on biotin, so unsure if they are falsely abnormal.Advise to repeat labs. If indeed after stopping biotin her labs are similar, she would have developed overt hypothyroidismand treatment is indicated. If patient does not want medication, she can have a goal to start medication if TSH is above 10. MNG: nodules have grown in size specially the dominant one, she has been advised to do a biopsy, she will think about it and let us know. She is aware that 90% of times nodules are benign. With regards of prediabetes: this is followed by PCP but I discussed her A1c as she had many questions. I recommended nutritional evaluaiton. NO need for medication, if at some point her A1c trends up >6% , advise to start metformin. All questions answered. I spent a total of 30 minutes on the date of this encounter meeting with the patient and reviewing documentation/coordinating care as described in the above note. This was separate from any procedures performed at the time of the visit. Thyroid US. Electronically signed by Kirstie Walters MD documented in this encounter Plan of Treatment Not on file documented as of this encounter Visit Diagnoses Diagnosis Nontoxic multinodular goiter- Primary Subclinical hypothyroidism Other specified acquired hypothyroidism Prediabetes Other abnormal glucose documented in this encounter Care Teams Community Health Nursing Director Relationship Specialty Start Date End Date Tita Pettit MD [address] [place] [address] [address] [place] [id number] PCP - General 09/01/11 Kirstie Aguilar MD [address] [place], [place] [address] [address] [place] [id number] Endocrinology, Diabetes and Metabolism 12/16/21 documented as of this encounter
--- OUTSIDE RECORDS SUMMARY | 2024-07-17 01:48 | XMS_ITS | Encounter Summary ---
Author Organization [facility] Address [address] [place] [address] Care Team Providers Care Sql Bi Developer Name Role Phone Tita Pettit MD Primary Care Provider [phone] Encounter Details Date Type Department Care Team (Late st Contact Info) Description 09/03/2018 Results Only Imaging [facility] [phone] Unknown, Provider, Social History Tobacco Use Types Packs/Day Years Used Date Smoking Tobacco: Never Assessed Sex and Gender Information Value Date Recorded Sex Assigned at Not on file Gender Identity Female 08/01/2022 9:32 EDT Sexual Orientation Not on file documented as of this encounter Plan of Treatment Pending Results Name Type Priority Associated Diagnoses Date /Time OUTSIDE IMAGES - US NEURO Imaging 09/03/2018 11:11 EDT documented as of this encounter Visit Diagnoses Not on filedocumented in this encounter Care Teams Sql Bi Developer Relationship Specialty Start Date End Date Tita Pettit MD [address] [place] [address] [address] [place] [phone] PCP - General 09/01/11 documented as of this encounter
--- OUTSIDE RECORDS SUMMARY | 2024-07-17 01:48 | XMS_ITS | Encounter Summary ---
Author Organization [facility] Address [address] [place] [address] Care Team Providers Care Alarm Mechanic Name Role Phone Tita Pettit MD Primary Care Provider [phone] Encounter Details Date Type Department Care Team (Late st Contact Info) Description 05/18/2017 Results Only Imaging [facility] [phone] Hemmett, Violeta MA [address] [place] [address] Social History Tobacco Use Types Packs/Day Years Used Date Smoking Tobacco: Never Assessed Sex and Gender Information Value Date Recorded Sex Assigned at Not on file Gender Identity Female 08/01/2022 9:32 EDT Sexual Orientation Not on file documented as of this encounter Plan of Treatment Not on file documented as of this encounter Procedures Procedure Name Priority Date/Time Associated Diagnosis Comments SHOULDER 2 OR MORE VIEWS 05/18/2017 15:21 EDT SHOULDER 2 OR MORE VIEWS 05/18/2017 15:21 EDT documented in this encounter Results * SHOULDER 2 OR MORE VIEWS (05/18/2017 15:21 EDT) Anatomical Region Laterality Modality Other 05/18/2017 15:2 1 EDT 05/19/2017 15:25 EDT Narrative 05/19/2017 15:25 EDT A-C JOINTS ANNA W OR WO WEIGHTS, SHOULDER 2 OR MORE VIEW, SHOULDER 2 OR MORE VIEW ??05/18/2017 3:21 PM Signs and Symptoms/Comments: ?? Assess for DJD and possible impingement syndrome under AC joint. Hx of fall on left shoulder but now right shoulder more painful. COMPARISON: None FINDINGS: Acromioclavicular joints: Frontal views of both acromial clavicular joints with and without weights demonstrate mild osteoarthrosis without evidence of AC joint operation or instability. The distal clavicles look normal. Internally and externally rotated frontal views and an axillary view were obtained of each shoulder. Mild appearing degenerative disease is present in both glenohumeral joints. The acromiohumeral joints are preserved but there are hypertrophic changes at the bottom of both acromions. Deformity of the left humeral head suggests previous anterior dislocation. Procedure Note Feliz Gibson MD - 05/19/2017 A-C JOINTS ANNA W OR WO WEIGHTS, SHOULDER 2 OR MORE VIEW, SHOULDER 2 OR MORE VIEW 05/18/2017 3:21 PM Signs and Symptoms/Comments: Assess for DJD and possible impingement syndrome under AC joint. Hx of fall on left shoulder but now right shoulder more painful. COMPARISON: None FINDINGS: Acromioclavicular joints: Frontal views of both acromial clavicular joints with and without weights demonstrate mild osteoarthrosis without evidence of AC joint operation or instability. The distal clavicles look normal. Internally and externally rotated frontal views and an axillary view were obtained of each shoulder. Mild appearing degenerative disease is present in both glenohumeral joints. The acromiohumeral joints are preserved but there are hypertrophic changes at the bottom of both acromions. Deformity of the left humeral head suggests previous anterior dislocation. Violeta Hemmett DC IMG DIAGNOSTIC IMAGI NG ORDERABLES * SHOULDER 2 OR MORE VIEWS (05/18/2017 15:21 EDT) Anatomical Region Laterality Modality Other 05/18/2017 15:2 1 EDT 05/19/2017 15:25 EDT Narrative 05/19/2017 15:25 EDT A-C JOINTS ANNA W OR WO WEIGHTS, SHOULDER 2 OR MORE VIEW, SHOULDER 2 OR MORE VIEW ??05/18/2017 3:21 PM Signs and Symptoms/Comments: ?? Assess for DJD and possible impingement syndrome under AC joint. Hx of fall on left shoulder but now right shoulder more painful. COMPARISON: None FINDINGS: Acromioclavicular joints: Frontal views of both acromial clavicular joints with and without weights demonstrate mild osteoarthrosis without evidence of AC joint operation or instability. The distal clavicles look normal. Internally and externally rotated frontal views and an axillary view were obtained of each shoulder. Mild appearing degenerative disease is present in both glenohumeral joints. The acromiohumeral joints are preserved but there are hypertrophic changes at the bottom of both acromions. Deformity of the left humeral head suggests previous anterior dislocation. Procedure Note Feliz Gibson MD - 05/19/2017 A-C JOINTS ANNA W OR WO WEIGHTS, SHOULDER 2 OR MORE VIEW, SHOULDER 2 OR MORE VIEW 05/18/2017 3:21 PM Signs and Symptoms/Comments: Assess for DJD and possible impingement syndrome under AC joint. Hx of fall on left shoulder but now right shoulder more painful. COMPARISON: None FINDINGS: Acromioclavicular joints: Frontal views of both acromial clavicular joints with and without weights demonstrate mild osteoarthrosis without evidence of AC joint operation or instability. The distal clavicles look normal. Internally and externally rotated frontal views and an axillary view were obtained of each shoulder. Mild appearing degenerative disease is present in both glenohumeral joints. The acromiohumeral joints are preserved but there are hypertrophic changes at the bottom of both acromions. Deformity of the left humeral head suggests previous anterior dislocation. Violeta Hemmetpretty LYONS IMG DIAGNOSTIC IMAGI NG ORDERABLES documented in this encounter Visit Diagnoses Not on filedocumented in this encounter Care Teams Alarm Mechanic Relationship Specialty Start Date End Date Tita Pettit MD [address] [place] [address] [address] [place] [phone] PCP - General 09/01/11 documented as of this encounter
--- OUTSIDE RECORDS SUMMARY | 2024-07-17 01:48 | XMS_ITS | Encounter Summary ---
Author Organization [facility] Address [address] [place] [address] Care Team Providers Care Licensing Analyst Name Role Phone Tita Pettit MD Primary Care Provider [phone] Reason for Referral * (Routine/Next Available) - New Request Specialty Diagnoses / Procedures Referred By Juan C olsen Referred To Contact Diagnoses Substernal goiter Procedures SECONDARY READ CHEST CT Geraldo Forrest MD [address] [facility], [address] [place] [address] Referral ID Status Reason Start Date Expiration Date V isits Requested Visits Authorized [id number] New Request 09/12/2018 1 1 Reason for Visit * Reason Comments New Patient Visit goiter * Consult (Routine) - Closed Specialty Diagnoses / Procedures Referred By Juan C olsen Referred To Contact Otolaryngology Diagnoses Thyroid disorder Mediastinal mass Nontoxic goiter, unspecified Tita Pettit MD [address] [place] [address] [address] [place] [address] [employer] [facility] [address] [place] [address] Referral ID Status Reason Start Date Expiration Date V isits Requested Visits Authorized [id number] Closed Specialty Services Required 1 1 Encounter Details Date Type Department Care Team (Late st Contact Info) Description 09/12/2018 13:45 EDT Office Visit [facility] ENT- [address] [id number] Geraldo Forrest MD [address] [facility], [address] [place] [address] Substernal goiter (Primary Dx); Nasal vestibulitis Discharge Disposition: Auto Discharge Social History Tobacco [...] No 09/12/2018 documented as of this encounter Discharge Diagnoses Diagnosis E04.9 Nontoxic goiter, unspecified-E04.9[ICD-10-CM] J34.89 Other specified disorders of nose and nasal sinuses-J34.89[ICD-10-CM] documented in this encounter Ordered Prescriptions Prescription Sig Dispensed Refills Start Date End Da te mupirocin (BACTROBAN) 2 % ointment Apply sparingly to nostrils twice daily after cleaning with a warm washcloth for 10 days and prn crusting 15 g 1 09/12/2018 06/01/2020 documented in this encounter Discharge Disposition Disposition Code Departure Means Destination Auto Discharge documented in this encounter Progress Notes * Geraldo Forrest MD - 09/12/2018 1344 EDT Subjective: Patient ID: Georgiana Araya is an 67 y.o. female. Chief Complaint Patient presents with ??? New Patient Visit christine Pettit has requested that I see Georgiana Araya in consultation regarding a mediastinal mass. HPI Georgiana Araya is a 67 y.o. year old female who comes in today for evaluation of a mediastinalmass. She had an episode earlier this month where she was eating and not and felt like it partiallygot stuck. It was followed by significant chest pain and difficulty swallowing. She was evaluated in the ER where the pain was thought to be esophageal in nature however a chest x-ray showed a cloudyarea which prompted a CT scan. CT scan showed a large upper mediastinal mass which was contiguous with the thyroid. There was some prominent nodes called in the mediastinum as well. Her swallowing isbeen back to normal since this event however she does note that things get caught easily. She has pizarro d a mildly raspy voice and has cleared her throat as well. She does have some reflux. She is euthyroid. She showed me TSH is over the last several years which were low normal. The last one was greater than 1. He does not take thyroid replacement. She also has a significant history of angioneurotic edema. This usually involves her lips or sometimes her tongue. It can happen up to several times per month. There is no obvious inciting factor other than stress. She has seen Dr. Higgins for this. Patient Active Problem List Diagnosis ??? Fracture of radius ??? Reflex sympathetic dystrophy of upper extremity ??? Carpal tunnel syndrome Past Medical History: Diagnosis Date ??? Angio-edema ??? Kidney stones Past Surgical History: Procedure Laterality Date ??? ANTERIOR CRUCIATE LIGAMENT REPAIR ??? KIDNEY STONE SURGERY ??? TONSILLECTOMY Family History Problem Relation Age of Onset ??? Heart Disease Mother ??? Cancer Father Social Social History Social History ??? Marital status: Spouse name: N/A ??? Number of children: N/A ??? Years of education: N/A Occupational History ??? Not on file. Social History Main Topics ??? Smoking status: Never Smoker ??? Smokeless tobacco: Never Used ??? Alcohol use No ??? Drug use: No ??? Sexual activity: Not on file Other Topics Concern ??? Not on file Social History Narrative Outpatient Prescriptions Marked as Taking for the 09/12/18 encounter (Office Visit) with Geraldo Forrest MD Medication Sig Dispense Refill ??? diphenhydrAMINE (BENADRYL) 25 mg capsule Take 25 mg by mouth at bedtime as needed. ??? EPINEPHrine (EPIPEN) 0.3 mg/0.3 mL injection Inject 0.3 mg into the muscle once as needed. ??? LORazepam (ATIVAN) 0.5 mg tablet Take 1 mg by mouth at bedtime as needed for Anxiety. Allergies Allergen Reactions ??? Sulfa (Sulfonamide Antibiotics) Review of Systems Constitutional: Positive for weight loss. Negative for chills, fever and malaise/fatigue. Intentional HENT: Positive for hearing loss. Negative for congestion, ear pain and sore throat. Eyes: Negative for blurred vision, double vision and photophobia. Respiratory: Negative for cough, hemoptysis, shortness of breath and wheezing. Cardiovascular: Positive for chest pain. Negative for palpitations, claudication and leg swelling. Gastrointestinal: Positive for heartburn. Musculoskeletal: Positive for joint pain. Negative for myalgias. Skin: Negative for rash. Neurological: Negative for sensory change, focal weakness and headaches. Endo/Heme/Allergies: Negative for environmental allergies. Does not bruise/bleed easily. - See HPI Objective: There were no vitals taken for this visit. Physical Exam Department of Otolaryngology PHYSICAL EXAMINATION CONSTITUTIONAL: APPEARANCE: The patient appears alert, cooperative, and comfortable. ABILITY TO COMMUNICATE / VOICE: Normal for age HEAD AND FACE: SALIVARY GLANDS: Submandibular and Parotid glands are normal bilaterally FACIAL STRENGTH: Intact and symmetrical bilaterally EARS, NOSE, MOUTH AND THROAT: OTOSCOPY: Right external auditory canal: patent and non-inflamed Left external auditory canal: patent and non-inflamed Right tympanic membrane: intact and normally mobile without retraction, perforation or effusion Left tympanic membrane: intact and normally mobile without retraction, perforation or effusion NOSE: normal turbinates and mucosa: septum in midline and some crusting anteriorly. LIPS, TEETH & GUMS: normal for age ORAL CAVITY & OROPHARYNX: normal HYPOPHARYNX & PHARYNGEAL PANDA: Normal mirror exam, no pooling of secretions or lesions seen LARYNX: Normal epiglottis, false vocal cords and true vocal cords (including mobility) NECK: GENERAL: Supple, no asymmetry or crepitus, trachea midline THYROID: soft, full L>R, extends below clavicle LYMPHATIC: CERVICAL LYMPH NODES: No pathologic cervical lymphadenopathy noted I briefly looked with the ultrasound. There is diffuse goiterous change to the thyroid with extension below the sternum. The CT scan appears to be a typical substernal goiter involving L>R lobes. The AP dimension of the thoracic inlet is not narrower than the goiter. It extends below the aorta, however. There are nofocally concerning areas for malignancy in my read. Assessment: Significant substernal goiter, but no significant compression and no areas to my read that look concerning for malignancy. The family is very concerned about the findings of the mediastinal nodes, soI will ask our radiologists to re-read the scan prior to surgery. I think this should come out withtotal thyroidectomy due to risk of further growth and compression of the structures passing through the thoracic inlet. I explained that I usually have thoracic surgery available for this sized goiter, so I will ask to review the images and get his thoughts as well. I will get back to her with my findings after the second read and talking with Dr. Crabtree. I will prescribe some mupirocin ointment for her nose to help with the crusting. Plan: Georgiana was seen today for new patient visit. Diagnoses and all orders for this visit: Substernal goiter - SECONDARY READ CHEST CT Geraldo Forrest MD documented in this encounter Plan of Treatment Not on file documented as of this encounter Procedures Procedure Name Priority Date/Time Associated Diagnosis Comments SECONDARY READ CHEST CT Routine 09/12/2018 15:09 EDT Substernal goiter documented in this encounter Results * SECONDARY READ CHEST CT (09/12/2018 15:09 EDT) Anatomical Region Laterality Modality Other 09/12/2018 15:0 9 EDT 09/12/2018 16:52 EDT Narrative 09/12/2018 16:52 EDT SECONDARY READ CHEST CT ??09/12/2018 3:09 PM SIGNS AND SYMPTOMS/COMMENTS: E04.9-Nontoxic goiter, [id number]; Anything of concern other than large substernal goiter? Mediastinal lymph nodes called on outside read. COMPARISON: None. TECHNIQUE: This is a secondary read performed at the request of Dr. Forrest. The exam was performed at [facility] on 08/29/2018. The patient was imaged from the clavicles through the lung bases after the administration of IV contrast. Axial 5 and 1 as well as coronal and sagittal 5 mm slice thickness images are available for review. FINDINGS: The chest wall is normal. There is a large heterogeneous goiter which extends from the inferior portions of the isthmus and/or the left lower thyroid lobe into the superior anterior mediastinum in the retrosternal region (#19). The thyroid mass measures approximately 7 cm in greatest transverse diameter. There is inferior and leftward displacement of the left brachiocephalic vein (#18). There is additional minimal mass effect on the trachea as well as more notably involving the great vessels and SVC without notable luminal compromise. The heart and pericardium are normal. There is a small hiatal hernia. There are bandlike regions of atelectasis within both lower lobes. No concerning nodules or masses are evident. No pleural abnormalities are present. The visualized portions of the upper abdomen demonstrate cholelithiasis. There is a hemangioma within the L1 vertebral body. The bones are otherwise unremarkable for age. IMPRESSION: 1. Large retrosternal goiter. 2. Small hiatal hernia. 3. Bandlike bibasilar atelectasis. Procedure Note Stuart Raza MD - 09/12/[address] 09/12/2018 3:09 PM SIGNS AND SYMPTOMS/COMMENTS: E04.9-Nontoxic goiter, [id number]; Anything of concern other than large substernal goiter? Mediastinal lymph nodes called on outside read. COMPARISON: None. TECHNIQUE: This is a secondary read performed at the request of Dr. Forrest. The exam was performed at [facility] on 08/29/2018. The patient was imaged from the clavicles through the lung bases after the administration of IV contrast. Axial 5 and 1 as well as coronal and sagittal 5 mm slice thickness images are available for review. FINDINGS: The chest wall is normal. There is a large heterogeneous goiter which extends from the inferior portions of the isthmus and/or the left lower thyroid lobe into the superior anterior mediastinum in the retrosternal region (#19). The thyroid mass measures approximately 7 cm in greatest transverse diameter. There is inferior and leftward displacement of the left brachiocephalic vein (#18). There is additional minimal mass effect on the trachea as well as more notably involving the great vessels and SVC without notable luminal compromise. The heart and pericardium are normal. There is a small hiatal hernia. There are bandlike regions of atelectasis within both lower lobes. No concerning nodules or masses are evident. No pleural abnormalities are present. The visualized portions of the upper abdomen demonstrate cholelithiasis. There is a hemangioma within the L1 vertebral body. The bones are otherwise unremarkable for age. IMPRESSION: 1. Large retrosternal goiter. 2. Small hiatal hernia. 3. Bandlike bibasilar atelectasis. Geraldo Forrest MD IMG OTHER IMAGI NG ORDERABLES documented in this encounter Visit Diagnoses Diagnosis Substernal goiter- Primary Goiter, unspecified Nasal vestibulitis Other diseases of nasal cavity and sinuses documented in this encounter Discontinued Medications Medication Sig Discontinue Reason Start Date End Da te ASCORBATE CALCIUM (VITAMIN C ORAL) Take by mouth. 09/12/2018 Calcium Acetate (PHOSLO) 667 mg Cap Take 1,334 mg by mouth 3 times daily. 09/12/2018 calcium-vitamin D (OS-ALBERTO D) 500 mg(1,250mg) -200 unit per tablet Take 1 Tab by mouth 2 times daily with meals. 09/12/2018 UNABLE TO FIND Med Name: l lysine 09/12/2018 documented as of this encounter Historical Medications * This list may reflect changes made after this encounter. Medication Sig Dispensed Refills Start Date End Date EPINEPHrine (EPIPEN) 0.3 mg/0.3 mL injection Inject 0.3 mL into the muscle once as needed. diphenhydrAMINE (BENADRYL) 25 mg capsule Take 25 mg by mouth at bedtime as needed. 06/01/2020 LORazepam (ATIVAN) 0.5 mg tablet Take 1 mg by mouth at bedtime as needed for Anxiety. 06/01/2020 added in this encounter Care Teams Licensing Analyst Relationship Specialty Start Date End Date Tita Pettit MD [address] [place] [address] [address] [place] [address] PCP - General 09/01/11 documented as of this encounter
--- OUTSIDE RECORDS SUMMARY | 2024-07-17 01:48 | XMS_ITS | Encounter Summary ---
Author Organization [facility] Address [address] [place] [address] Care Team Providers Care Supervisor Jewelry Department Name Role Phone Tita Pettit MD Primary Care Provider [phone] Reason for Visit * Reason Onset Date Comments Other 06/22/2020 chart note error Encounter Details Date Type Department Care Team (Late st Contact Info) Description 06/22/2020 Telephone [facility] Endocrinology [address] [place] [address] Kirstie Aguilar MD [address] [facility]- [address] [place] [address] Other (chart note error) Social History Tobacco Use Types Packs/Day Years [...] encounter Miscellaneous Notes * Telephone Encounter - Shyann Sanchez RN - 06/23/2020 0959 EDT Pt spoke with maida, see note. 06/01 * Telephone Encounter - Shyann Sanchez RN - 06/22/2020 1621 EDT lm * Telephone Encounter - Irene Gaston - 06/22/2020 1206 EDT Patient left voice mail that she has the notes from her visit on 06-01-20 and states there are errors , please call her to discuss documented in this encounter Plan of Treatment Not on file documented as of this encounter Visit Diagnoses Not on filedocumented in this encounter Care Teams Supervisor Jewelry Department Relationship Specialty Start Date End Date Tita Pettit MD [address] [place] [address] PCP - General 09/01/11 documented as of this encounter
--- OUTSIDE RECORDS SUMMARY | 2024-07-17 01:48 | XMS_ITS | Encounter Summary ---
Author Organization [facility] Address [address] [place] [address] Care Team Providers Care Director Custom Name Role Phone Tita Pettit MD Primary Care Provider Encounter Details Date Type Department Care Team (Late st Contact Info) Description 12/22/2011 Abstract [facility]rem[facility] - [address] [facility] [place] [address] Escobar Biswas Social History Tobacco Use Types [...] on filedocumented in this encounter Care Teams Director Custom Relationship Specialty Start Date End Date Ttia Pettit MD [address] [place] [address] [address] [place] [address] PCP - General 09/01/11 documented as of this encounter
--- OUTSIDE RECORDS SUMMARY | 2024-07-17 01:48 | XMS_ITS | Encounter Summary ---
Author Organization [facility] Address [address] [place] [address] Care Team Providers Care Blacksmith Supervisor Name Role Phone Tita Pettit MD Primary Care Provider [phone] Encounter Details Date Type Department Care Team (Late st Contact Info) Description 08/14/2017 Results Only [facility] [phone] Tita Pettit MD [address] [place] [id number] Social History Tobacco Use Types Packs/Day Years [...] Diagnosis Comments PAP TEST- RESULT ONLY Routine 08/14/2017 0:00 EDT documented in this encounter Results * PAP TEST- RESULT ONLY (08/14/2017 0:00 EDT) Pathology Report: CYTOPATHOLOGY REPORT Reports generated via electronic interface contain original data; however they are lacking the format of the original report. Caution should be taken when reading/interpreti ng unformatted reports. Name: ? NOEMY WOO Norm ? Accession #: ? [id number] : ? 1950 (Age: 66) ??F ?Collect Date: ? 08/14/2017 Location: ? [facility] ? Receive Date: ? 08/15/2017 Provider: ?TITA PETTIT MD Copy to: ? Specimen/Source: ?Pap Test, Cervix, ThinPrep Imaging System with manual evaluation Last Menstrual Period: ? Menstrual/Pregnanc y Status: ? Post Menopausal Hormonal/Contracep tive Status: ? None Treatment History: ? Colposcopy: negative ? SPECIMEN ADEQUACY ? Satisfactory for Evaluation - assessment of transformation zone component not applicable ( e.g. atrophy, vaginal sample, hysterectomy) GENERAL CATEGORIZATION ? Negative for Intraepithelial Lesion or Malignancy ? Document reviewed and electronically signed by: ? BONI CHOUDHURY MD ? Report Date: ??08/29/2017 11:22 End of Report [facility] 08/14/2017 08/15/2017 Tita Pettit MD PATHOLOGY ORDERABLE S [facility] [address] [place] [address] documented in this encounter Visit Diagnoses Not on filedocumented in this encounter Care Teams Blacksmith Supervisor Relationship Specialty Start Date End Date Tita Pettit MD [address] [place] [phone] PCP - General 09/01/11 documented as of this encounter
--- OUTSIDE RECORDS SUMMARY | 2024-07-17 01:48 | XMS_ITS | Encounter Summary ---
Author Organization [facility] Address [address] [place] [address] Care Team Providers Care Kitchen Hand Name Role Phone Tita Pettit MD Primary Care Provider [phone] Diane Aguilar MD Unavailable [phone] Reason for Visit * Reason Onset Date Comments Pre-visit Planning 07/14/2023 Encounter Details Date Type Department Care Team (Late st Contact Info) Description 07/14/[address] [facility] Endocrinology [address] [place] [address] Kalee Charles RN Pre-visit Planning Social History Tobacco Use Types Packs/Day Years [...] as of this encounter Miscellaneous Notes * Addendum Note - Diane Gonzalez MD - 07/17/2023 1303 EDTAddended by: DIANE GONZALEZ on: 07/17/2023 13:03 Modules accepted: Orders * Telephone Encounter - Diane Gonzalez MD - 07/17/2023 1303 EDT Let her know that generally we do not order iodine levels, I have done this as favor and the test is done in a random urine. Please fax this to the hospital she wants it to be fax. Diane Walters MD 07/17/2023 13:03 * Telephone Encounter - Kalee Charles RN - 07/14/2023 1687 EDT Patient called asking for iodine level to be checked. Message sent to Dr Aguilar. 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
--- OUTSIDE RECORDS SUMMARY | 2024-07-17 01:48 | XMS_ITS | Encounter Summary ---
Author Organization [facility] Address [address] [place] [address] Care Team Providers Care Mechanical Engineering Advisor Name Role Phone Tita Pettit MD Primary Care Provider [phone] Kirstie Aguilar MD Unavailable [phone] Reason for Visit * (Routine/Next Available) - Receiving Office to Obtain Authorization Specialty Diagnoses / Procedures Referred By Juan C t Referred To Contact Procedures US OUTSIDE IMAGES THYROID Unknown, ProviderMD Referral ID Status Reason Start Date Expiration Date Visits Requested Visits Authorized [id number] Receiving Office to Obtain Authorization 08/01/2023 1 1 Encounter Details Date Type Department Care Team (Latest Contact Info) Description 08/01/2023 16:44 EDT - 08/01/2023 23:59 EDT Hospital Encounter [facility] Secondary Reads [place] Discharge Disposition: Home or Self Care Social [...] No 09/12/2018 documented as of this encounter Medications at Time of Discharge Medication Sig Dispensed Refills Start Date End Date ASCORBATE [id number] ORAL Take 1 Capsule by mouth daily. ascorbic acid, vitamin C, (VITAMIN C) 250 mg tablet Take 700 mg by mouth daily. calcium citrate 200 mg (950 mg)Indications:takes on occasion, 2-3x a week Take 600 mg by mouth daily. cetirizine (ZYRTEC) 10 mg tablet Take 5 mg by mouth daily. cholecalciferol, Vitamin D3, 1,000 unit tabletIndications:d3 k2 combination Take 5 Tablets by mouth daily. EPINEPHrine (EPIPEN) 0.3 mg/0.3 mL injection Inject 0.3 mL into the muscle once as needed. famotidine (PEPCID) 20 mg tablet Take 10 mg by mouth daily. INV - 977 PRO-OMEGA CAPSULES MAINTENANCE DOSE # 15 caps Take 2 Tabs by mouth daily. 650 epa/450 dha 12/06/2005 Magnesium 250 mg tablet Take 500 mg by mouth daily. Multivitamins with Minerals tablet tabletIndications:2 tabs is one serving Take 2 Tablets by mouth daily. NONFORMULARYIndications:t urkey tail mushroom 1 Tablet daily. [place] Tail Mushroom NONFORMULARYIndications:A staxanthin 4 mg daily. predniSONE (DELTASONE) 10 mg tablet Take 2.5 mg by mouth as needed. documented as of this encounter Discharge Disposition Disposition Code Departure Means Destination Home or Self Care documented in this encounter Plan of Treatment Not on file documented as of this encounter Procedures Procedure Name Priority Date/Time Associated Diagnosis Comments US OUTSIDE IMAGES THYROID Routine 08/01/2023 16:44 EDT documented in this encounter Results * US OUTSIDE IMAGES THYROID (08/01/2023 16:44 EDT) Narrative 08/01/2023 16:44 EDT This is a non-reportable exam. Provider Unknown MD HECK OTHER IMAGING OR DERABLES documented in this encounter Visit Diagnoses Not on filedocumented in this encounter Care Teams Mechanical Engineering Advisor Relationship Specialty Start Date End Date Tita Pettit MD [address] [place] [address] [address] [place] [address] PCP - General 09/01/11 Kirstie Aguilar MD [address] [place] [address] [address] [place] [phone] Endocrinology, Diabetes and Metabolism 12/16/21 documented as of this encounter
--- OUTSIDE RECORDS SUMMARY | 2024-07-17 01:48 | XMS_ITS | Encounter Summary ---
Author Organization [facility] Address [address] [place] [address] Care Team Providers Care Dry Cell Sealer Name Role Phone Tita Pettit MD Primary Care Provider [phone] Reason for Visit * Reason Comments Arm Problem left arm Encounter Details Date Type Department Care Team (Late st Contact Info) Description 12/16/2011 10:00 EST Office Visit [facility] Upper Extremity [facility] [place] [place] [address] Escobar Biswas Carpal tunnel syndrome of left wrist (Primary Dx); Radius fracture Social History Tobacco Use Types Packs/Day Years Used Date Smoking Tobacco: Never Assessed Sex and Gender Information Value Date Recorded Sex Assigned at Not on file Gender Identity Female 08/01/2022 9:32 EDT Sexual Orientation Not on file documented as of this encounter Last Filed Vital Signs Vital Sign Reading Time Taken Comments Blood Pressure - - Pulse - - Temperature - - Respiratory Rate - - Oxygen Saturation - - Inhaled Oxygen Concentration - - Weight 72.6 kg (160 lb) 12/16/2011 0955 EST Height 165.1 cm (5' 5) 12/16/2011 0955 EST Body Mass Index 26.63 12/16/2011 0955 EST documented in this encounter Progress Notes * Escobar Biswas MD - 12/20/2011 0851 EST [facility] PROGRESS/FOLLOWUP NOTE - 12/16/2011 PROBLEM: Status post left distal radius and ulna fracture, status post complex regional pain syndrome, left hand, posttraumatic left carpal tunnel syndrome. SUBJECTIVE: The patient continues to have numbness in the left long finger. States that the stiffness in her hand continues to be somewhat troublesome though it continues to improve. OBJECTIVE: On examination today, the patient's left hand shows near complete flexion at all joint levels of the left hand, though it is not as effort free as her right contralateral normal hand. She does have a positive carpal compression test at the left carpal tunnel. There are no obvious dystrophic skin changes of the left wrist or left hand. ASSESSMENT: Posttraumatic left carpal tunnel syndrome. PLAN: At this point, I think the patient should have a nerve conduction study to assess the left median nerve at the wrist. The patient's median neuropathy may be contributing to some of her persistent hand pain and stiffness as well as the persistent paresthesia in her left long finger. Continue with her present reconditioning and strengthening program. Continue wrist splinting at night. I offered the patient a corticosteroid injection but we will hold off until after the nerve conduction studies. Electronically Signed by Escobar Biswas MD 12/27/2011 12:34 Escobar Biswas MD [address] [place] [address] - Escobar Biswas MD - MFS Job ID: SM Doc ID: [id number] Ext Doc ID: [id number] cc: Tita Pettit MD * Escobar Biswas MD - 12/16/2011 1029 EST This office note has been dictated. documented in this encounter Plan of Treatment Not on file documented as of this encounter Visit Diagnoses Diagnosis Carpal tunnel syndrome of left wrist- Primary Carpal tunnel syndrome Radius fracture Closed fracture of unspecified part of radius (alone) documented in this encounter Care Teams Dry Cell Sealer Relationship Specialty Start Date End Date Tita Pettit MD [address] [place] [address] PCP - General 09/01/11 documented as of this encounter
--- OUTSIDE RECORDS SUMMARY | 2024-07-17 01:48 | XMS_ITS | Encounter Summary ---
Author Organization [facility] Address [address] [place] [address] Care Team Providers Care Collections Clerk Name Role Phone Tita Pettit MD Primary Care Provider [phone] Kirstie Aguilar MD Unavailable [phone] Encounter Details Date Type Department Care Team (Late st Contact Info) Description 08/01/2023 Lab Requisition [facility] Pathology & Laboratory Medicine - [facility] [address] [place], [place] [address] Outr Resulting Lab, Provider Social History Tobacco Use Types Packs/Day Years [...] Procedure Name Priority Date/Time Associated Diagnosis Comments T3, TOTAL Routine 08/01/2023 7:25 EDT documented in this encounter Results * T3, TOTAL (08/01/2023 7:25 EDT) T3, Total 127 97 - 169 ng/dL 08/01/2023 19:25 EDT [facility] Blood VENOUS BLOOD / Unknown 08/01/2023 7:25 EDT 08/01/2023 17:40 EDT Provider Outr Resulting Lab CHEMISTRY & BLOOD GAS ORDERABLES Performing Organization Address City/State/[facility] Co de Phone Number [facility] [address] [place] [address] documented in this encounter Visit Diagnoses Not on filedocumented in this encounter Care Teams Collections Clerk Relationship Specialty Start Date End Date Tita Pettit MD [address] [place] [address] PCP - General 09/01/11 Kirstie Aguilar MD [address] [place] [address] [place] [address] Endocrinology, Diabetes and Metabolism 12/16/21 documented as of this encounter
--- OUTSIDE RECORDS SUMMARY | 2024-07-17 01:48 | XMS_ITS | Encounter Summary ---
Author Organization [facility] Address [address] [place] [address] Care Team Providers Care Electronic Calibration Technician Name Role Phone Tita Pettit MD Primary Care Provider [phone] Encounter Details Date Type Department Care Team (Late st Contact Info) Description 05/18/2017 Results Only Imaging [facility] [phone] [place], [place], [place] [address] [place] [address] Social History Tobacco Use Types Packs/Day Years Used Date Smoking Tobacco: Never Assessed Sex and Gender Information Value Date Recorded Sex Assigned at Not on file Gender Identity Female 08/01/2022 9:32 EDT Sexual Orientation Not on file documented as of this encounter Plan of Treatment Not on file documented as of this encounter Procedures Procedure Name Priority Date/Time Associated Diagnosis Comments A-C JOINTS ANNA W OR WO WEIGHTS 05/18/2017 15:21 EDT documented in this encounter Results * A-C JOINTS ANNA W OR WO WEIGHTS (05/18/2017 15:21 EDT) Anatomical Region Laterality Modality [...] head suggests previous anterior dislocation. Violeta [place] SERENA IMG DIAGNOSTIC IMAGI NG ORDERABLES documented in this encounter Visit Diagnoses Not on filedocumented in this encounter Care Teams Electronic Calibration Technician Relationship Specialty Start Date End Date Tita Pettit MD [address] [place] [address] [address] [place] [address] PCP - General 09/01/11 documented as of this encounter
--- OUTSIDE RECORDS SUMMARY | 2024-07-17 01:48 | XMS_ITS | Encounter Summary ---
Author Organization [facility] Address [address] [place] [address] Care Team Providers Care Knockout Worker Name Role Phone Tita Pettit MD Primary Care Provider [phone] Kirstie Aguilar MD Unavailable [phone] Encounter Details Date Type Department Care Team (Late st Contact Info) Description 01/23/2023 Lab Requisition [facility] Pathology & Laboratory Medicine - [facility] [address] [place] [address] Tita Pettit MD [facility] [address] [place] [phone] Encounter for other general examination Social History [...] No 09/12/2018 Cognitive Status Response Date of Assess ent Because of a physical, menta l, or emotional condition, does this person have serious difficulty concentrating, remembering, or making decisions? No 09/12/2018 documented as of this encounter Plan of Treatment Not on file documented as of this encounter Procedures Procedure Name Priority Date/Time Associated Diagnosis Comments PAP TEST Today 01/19/2023 10:30 EST Encounter for other general examination HPV GENOTYPES 16 AND 18/45 Today 01/19/2023 10:30 EST Encounter for other general examination HPV DNA DETECTION WITH GENOTYPING, PCR Today 01/19/2023 10:30 EST Encounter for other general examination documented in this encounter Results * (ABNORMAL) HPV GENOTYPES 16 AND 18/45 (01/19/2023 10:30 EST) HPV High Risk type 16, PCR Positive(A) Negative 02/07/2023 12:14 EDT [facility] HPV18/45 RNA (HPV18/45) Negative Negative 02/07/2023 12:14 EDT [facility] Papanicolaou smear specimen (specimen) CERVIX UTERI STRUCTURE / Unknown 01/19/2023 10:30 EST 02/02/2023 15:33 EDT Tita Pettit MD MICROBIOLOGY - [facility] ORDERABLES [facility] [address] [place] [address] * (ABNORMAL) HUMAN PAPILLOMAVIRUS (HPV) DETECTION-HIGH RISK TYPES (01/19/2023 10:30 EST) HPV other High Risk types, PCR Positive( A) Negative 02/03/2023 17:50 EDT [facility] Comment:E6 OR E7 mRNA from o ne or more types of HPV types 16,18,31,33,35,39,45,51,52,56,58,59,66, and 68 is detected by maternity floor supervisor mediated amplification. High and intermediate risk HPV types are associated with most squamous intraepithelial lesions and cervical cancers. Papanicolaou smear specimen (specimen) CERVIX UTERI STRUCTURE / Unknown 01/19/2023 10:30 EST 02/02/2023 15:33 EDT Tita Pettit MD MICROBIOLOGY - [facility] ORDERABLES [facility] [address] [place] [address] * PAP TEST (01/19/2023 10:30 EST) Specimens A. Cervix and/or Endocervix , ThinPrep Imaging System with Manual Evaluation 02/07/2023 12:14 [facility] Specimen Adequacy Satisfactory for Evaluation - assessment of transformation zone component not applicable ( e.g. atrophy, vaginal sample, hysterectomy) Scant squamous epithelial component 02/07/2023 12:14 [facility] General Categorization Epithelial Cell Abnormality 02/07/2023 12:14 [facility] Descriptive Diagnosis Squamous Cell Abnormality - Atypical squamous cells, undetermined significance (ASC-US). 02/07/2023 12:14 [facility] Educational Comments [facility] recommends following the ASCCP's management guidelines which may be found at www.asccp.org 02/07/2023 12:14 [facility] Attestation By the signature below, the attending physician certifies that they have personally conducted a gross and/or microscopic examination of the described specimens and rendered or confirmed the above diagnosis. 02/07/2023 12:14 [facility] at 1214 Clinical History SEE BELOW 02/08/20 12:14 [facility] HPV The result for the Human Papillomavirus (HPV) Detection-High Risk Types is Positive . E6 OR E7 mRNA from one or more types of HPV types 16,18,31,33,35,39 ,45,51,52,56,58,5 9,66, and 68 is detected by maternity floor supervisor mediated amplification. High and intermediate risk HPV types are associated with most squamous intraepithelial lesions and cervical cancers. Testing was performed on specimen [address] [place] [id number] and was resulted on 02/03/2023 1750 EDT by KASSIDY, LAB INSTRUMENT RESULTS IN 02/07/2023 12:14 EDT [facility] Genotyping 16 & 18/45 The results for the HPV Genotypes 16 and 18/45 are Positive for the HPV16 RNA and Negative for the HPV18/45 RNA (HPV18/45). Testing was performed on specimen [id number] and was resulted on 02/07/2023 1214 EDT by KASSIDY, LAB INSTRUMENT RESULTS IN 02/07/2023 12:14 EDT [facility] Performing Lab [facility] 02/07/2023 12:14 EDT [facility] Scanned Images 02/07/2023 12:14 T [facility] Papanicolaou smear specimen (specimen) CERVIX UTERI STRUCTURE / Unknown 01/19/2023 10:30 EST 01/23/2023 11:32 EST Tita Pettit MD PATHOLOGY ORDERABLE S [facility] [address] [place] [address] documented in this encounter Visit Diagnoses Diagnosis Encounter for other general examination documented in this encounter Care Teams Knockout Worker Relationship Specialty Start Date End Date Tita Pettit MD [address] [place] [address] [address] [place] [phone] PCP - General 09/01/11 Kirstie Aguilar MD [address] [place] [address] [place] [address] Endocrinology, Diabetes and Metabolism 12/16/21 documented as of this encounter
--- OUTSIDE RECORDS SUMMARY | 2024-07-17 01:48 | XMS_ITS | Encounter Summary ---
Author Organization [facility] Address [address] [place] [address] Care Team Providers Care Rn Wound Name Role Phone Tita Pettit MD Primary Care Provider [phone] Reason for Visit * Reason Onset Date Comments Follow-up 09/13/2018 Encounter Details Date Type Department Care Team (Late st Contact Info) Description 09/13/2018 Telephone [facility] ENT- [facility] [place] [address] [place], [place] [id number] Richelle Zapata RN Follow-up Social History Tobacco Use Types Packs/Day Years [...] encounter Miscellaneous Notes * Telephone Encounter - Richelle Zapata RN - 09/13/[address] Forrest stated the second read on the chest CT showed substernal goiter, no concerns for malignancy. Dr. Forrest spoke with Dr. Crabtree would see the patient for a pre op appointment or day of surgery. Spoke with the patient relayed above information. Patient verbalized understanding and willcall our ENT office to schedule surgery if she decides. documented in this encounter Plan of Treatment Not on file documented as of this encounter Visit Diagnoses Not on filedocumented in this encounter Care Teams Rn Wound Relationship Specialty Start Date End Date Tita Pettit MD [address] [place], [place] [address] [address] [place] [address] PCP - General 09/01/11 documented as of this encounter
--- OUTSIDE RECORDS SUMMARY | 2024-07-17 01:48 | XMS_ITS | Encounter Summary ---
Author Organization [facility] Address [address] [place] [address] Care Team Providers Care Support Worker Name Role Phone Tita Pettit MD Primary Care Provider [phone] Kirstie Aguilar MD Unavailable [phone] Encounter Details Date Type Department Care Team (Late st Contact Info) Description 06/10/2022 Orders Only [facility] Endocrinology [address] [place] [address] Kalee Charles RN Nontoxic multinodular goiter (Primary Dx) Social History Tobacco Use Types Packs/Day Years [...] Progress Notes * Kalee Charles RN - 06/10/2022 1052 EDT T4 added to lab owrk for patient. documented in this encounter Plan of Treatment Not on file documented as of this encounter Visit Diagnoses Diagnosis Nontoxic multinodular goiter- Primary documented in this encounter Care Teams Support Worker Relationship Specialty Start Date End Date Tita Pettit MD [address] [place] [address] [address] [place] [address] PCP - General 09/01/11 Kirstie Aguilar MD [address] [place] [address] [address] [place] [phone] Endocrinology, Diabetes and Metabolism 12/16/21 documented as of this encounter
--- OUTSIDE RECORDS SUMMARY | 2024-07-17 01:48 | XMS_ITS | Encounter Summary ---
Author Organization [facility] Address [address] [place] [address] Care Team Providers Care Plant Electrical Engineer Name Role Phone Tita Pettit MD Primary Care Provider [phone] Kirstie Aguilar MD Unavailable [phone] Encounter Details Date Type Department Care Team (Late st Contact Info) Description 11/10/[address] [facility] Pathology & Laboratory Medicine - [facility] [address] [place] [address] Tita Pettit MD [facility] [address] [place] [phone] Encounter for other general examination Social History [...] Date/Time Associated Diagnosis Comments PAP TEST Today 11/09/2021 9:45 EST Encounter for other general examination HPV DNA DETECTION WITH GENOTYPING, PCR Today 11/09/2021 9:45 EST Encounter for other general examination documented in this encounter Results * (ABNORMAL) HUMAN PAPILLOMAVIRUS (HPV) DETECTION-HIGH RISK TYPES (11/09/2021 9:45 EST) HPV other High Risk types, PCR Positive( A) Negative 11/22/2021 15:02 [facility] Comment:E6 OR E7 mRNA from o ne or more types of HPV types 16,18,31,33,35,39,45,51,52,56,58,59,66, and 68 is detected by executive secretary mediated amplification. High and intermediate risk HPV types are associated with most squamous intraepithelial lesions and cervical cancers. Papanicolaou smear specimen (specimen) CERVIX UTERI STRUCTURE / Unknown 11/09/2021 9:45 EST 11/18/2021 15:49 EST Tita Pettit MD MICROBIOLOGY - [facility] ORDERABLES Performing Organization Address City/State/[facility] Co de Phone Number [facility] [address] [place] [address] * PAP TEST (11/09/2021 9:45 EST) Specimens A. Cervix and/or Endocervix , ThinPrep Imaging System with Manual Evaluation 11/22/2021 15:02 [facility] Specimen Adequacy Satisfactory for Evaluation - assessment of transformation zone component not applicable ( e.g. atrophy, vaginal sample, hysterectomy) 11/22/2021 15:02 [facility] General Categorization Epithelial Cell Abnormality 11/22/2021 15:02 [facility] Descriptive Diagnosis Squamous Cell Abnormality - Atypical squamous cells, undetermined significance (ASC-US). 11/22/2021 15:02 [facility] Educational Comments [facility] recommends following ASCCP's 2012 Updated Consensus Guidelines for the Management of Abnormal Cervical Cancer Screening Tests and Cancer Precursors (JLGTD, 2013; 17(5):S1-S27). Consensus guidelines are available online at www.asccp.org. 11/22/2021 15:02 [facility] Attestation By the signature below, the attending physician certifies that they have personally conducted a gross and/or microscopic examination of the described specimens and rendered or confirmed the above diagnosis. 11/22/2021 15:02 [facility] at 1502 Clinical History SEE BELOW 11/22/19 15:02 [facility] HPV The result for the Human Papillomavirus (HPV) Detection-High Risk Types is Positive . E6 OR E7 mRNA from one or more types of HPV types 16,18,31,33,35,39 ,45,51,52,56,58,5 9,66, and 68 is detected by executive secretary mediated amplification. High and intermediate risk HPV types are associated with most squamous intraepithelial lesions and cervical cancers. Testing was performed on specimen [id number] and was resulted on 11/22/2021 1501 EST by KASSIDY, LAB INSTRUMENT RESULTS IN 11/22/2021 15:02 [facility] Performing Lab [facility] 11/22/2021 15:02 [facility] Scanned Images 11/22/2021 15:02 [facility] Papanicolaou smear specimen (specimen) CERVIX UTERI STRUCTURE / Unknown 11/09/2021 9:45 EST 11/10/2021 13:25 EST Tita Pettit MD PATHOLOGY ORDERABLE S [facility] [address] [place] [address] documented in this encounter Visit Diagnoses Diagnosis Encounter for other general examination documented in this encounter Care Teams Plant Electrical Engineer Relationship Specialty Start Date End Date Tita Pettit MD [address] [place] [phone] PCP - General 09/01/11 Kirstie Aguilar MD [address] [place] [address] [address] [place] [phone] Endocrinology, Diabetes and Metabolism 12/16/21 documented as of this encounter
--- OUTSIDE RECORDS SUMMARY | 2024-07-17 01:48 | XMS_ITS | Encounter Summary ---
Author Organization [facility] Address [address] [place] [address] Care Team Providers Care Brazer Production Line Name Role Phone Michael Pettit MD Primary Care Provider [phone] Encounter Details Date Type Department Care Team (Late st Contact Info) Description 07/18/2016 Results Only [facility] [phone] Michael Pettit MD [address] [place] [phone] Social History Tobacco Use Types Packs/Day Years [...] Diagnosis Comments PAP TEST- RESULT ONLY Routine 07/18/2016 0:00 EDT documented in this encounter Results * PAP TEST- RESULT ONLY (07/18/2016 0:00 EDT) Pathology Report: CYTOPATHOLOGY REPORT Reports generated via electronic interface contain original data; however they are lacking the format of the original report. Caution should be taken when reading/interpreti ng unformatted reports. Name: ? EVANJANINERICCARDONOEMY ? Accession #: ? [id number] ? : ? 1950 (Age: 65) ??F ?Collect Date: ? 07/18/2016 ? Location: ? [facility] ? Receive Date: ? 07/19/2016 ? Provider: MICHAEL PETTIT MD Copy to: ? Final Report SPECIMEN ADEQUACY ? Satisfactory for Evaluation - transformation zone component present GENERAL CATEGORIZATION ? Epithelial Cell Abnormality INTERPRETATION ? Squamous Cell Abnormality - Atypical squamous cells, undetermined significance (ASC-US). EDUCATIONAL NOTES/RECOMMENDATI ONS ? [facility] recommends following ASCCP's 2012 Updated Consensus Guidelines for the Management of Abnormal Cervical Cancer Screening Tests and Cancer Precursors (JLGTD, 2013; 17(5):S1-S27). ??Consensus guidelines are available online at www.asccp.org. Menstrual/Pregnanc y Status: ??Post Menopausal Hormonal/Contracep tive status: None Previous Gynecologic Pathology: HPV: + 2012, 2013, 2014 Specimen/Source: ??Pap Test, Cervix/Endocervix, ThinPrep Imaging System with manual evaluation Document reviewed and electronically signed by: ? NITIN BHATIA MD ? Report ??Date: 07/28/2016 11:00 HPV with Pap Test ? Date Ordered: ? 07/28/2016 ? Status: ?? Signed Out ?Date Complete: ? 08/01/2016 ? By: ??System Interface ? Date Reported: ? 08/01/2016 ? Interpretation RESULT: Positive for high or intermediate risk HPV. E6 OR E7 mRNA from one or more types of HPV types 16,18,31, 33,35,39,45,51,52, 56,58,59,66, and 68 is detected by forging dies final finisher mediated amplification. High and intermediate risk HPV types are associated with most squamous intraepithelial lesions and cervical cancers. Comments Document reviewed and electronically signed by: ? System Interface ? Report date: 08/01/2016 By the signature above, the attending physician certifies that he/she has personally conducted a gross and/or microscopic examination of the described specimens and rendered or confirmed the above diagnosis. End of Report [facility] 07/18/2016 07/19/2016 Michael Pettit MD PATHOLOGY ORDERABLE S [facility] [address] [place] [address] documented in this encounter Visit Diagnoses Not on filedocumented in this encounter Care Teams Brazer Production Line Relationship Specialty Start Date End Date Michael Pettit MD [address] [place] [address] PCP - General 09/01/11 documented as of this encounter
--- OUTSIDE RECORDS SUMMARY | 2024-07-17 01:48 | XMS_ITS | Encounter Summary ---
Author Organization [facility] Address [address] [place] [address] Care Team Providers Care Monomer Purification Operator Name Role Phone Tita Pettit MD Primary Care Provider [phone] Reason for Visit * Reason Comments New Patient Visit Encounter Details Date Type Department Care Team (Latest Contact Info) Description 06/01/2020 15:00 EDT Office Visit [facility] Endocrinology [address] [place] [address] Kirstie Aguilar MD [address] [facility] [address] [place] [address] Subclinical hypothyroidism (Primary Dx) Social History Tobacco Use Types [...] Sign Reading Time Taken Comments Blood Pressure 110/78 06/01/2020 1502 EDT Pulse 78 06/01/2020 1502 EDT Temperature - - Respiratory Rate - - Oxygen Saturation - - Inhaled Oxygen Concentration - - Weight 76.8 kg (169 lb 6.4 oz) 06/01/2020 1502 E DT Height 163.8 cm (5' 4.5) 06/01/2020 1502 EDT Body Mass Index 28.63 06/01/2020 1502 EDT documented in this encounter Functional Status [...] as of this encounter Progress Notes * Shyann Sanchez RN - 06/01/2020 1500 EDT Scanned referral * Kirstie Gonzalez MD - 06/01/2020 1500 EDT 06/01/2020 NEW PATIENT PATIENT: Georgiana Araya CHIEF COMPLAINT New Patient Visit HISTORY OF PRESENT ILLNESS Georgiana Araya is a very pleasant 69 y.o. female who presents for consultation for subclinicalhypothyroidism, however patient today says I want to talk about osteoporosis and diabetes. With regards of subclinical hypothyroidism, patient got a left partial thyroidectomy in January of 2019 for a large retrosternal goiter. Last TSH done in January of 2020 was 8.6 uIU/mL and normal FT4 of 0.8 ng/dL. Per patient goiter was benign and per biopsy done at [place]. She is coming from [facility], from the [facility] [place] and she suspects the reason for goiter was lack of iodine as she also stopped iodine salt long time ago. HPI PAST HISTORY Past Medical History: Diagnosis [...] Outpatient Medications Medication Sig Dispense Refill ??? ascorbic acid, vitamin C, (VITAMIN C) 250 mg tablet Take 700 mg by mouth daily. ??? calcium citrate 200 mg (950 mg) Take 600 mg by mouth daily. ??? cetirizine (ZYRTEC) 10 mg tablet Take 5 mg by mouth daily. ??? cholecalciferol, Vitamin D3, 1,000 unit tablet Take 5,000 Units by mouth daily. ??? EPINEPHrine (EPIPEN) 0.3 mg/0.3 mL injection Inject 0.3 mg into the muscle once as needed. ??? famotidine (PEPCID) 20 mg tablet Take 10 mg by mouth daily. ??? INV - 977 PRO-OMEGA CAPSULES MAINTENANCE [...] Take 2.5 mg by mouth as needed. No current facility-administered medications for this visit. ALLERGIES Allergies Allergen Reactions ??? Sulfa (Sulfonamide Antibiotics) Hives swelling REVIEW OF SYSTEMS Constitutional: Negative for chills and fever. HENT: Negative for sore throat. Eyes: Negative for blurred vision and double vision. Respiratory: Negative for cough and shortness of breath. Cardiovascular: Negative for chest pain, palpitations and leg swelling. Gastrointestinal: Positive for heartburn. Negative for nausea and vomiting. Genitourinary: Negative for dysuria. Musculoskeletal: Negative for joint pain. Skin: Negative for rash. Neurological: Negative for tingling and tremors. Endo/Heme/Allergies: Does not bruise/bleed easily. Psychiatric/Behavioral: Negative for depression. The patient is not nervous/anxious. VITALS Vitals: 06/01/20 1502 BP: 110/78 Pulse: 78 Weight: 76.8 kg (169 lb 6.4 oz) Height: 163.8 cm (64.5) PHYSICAL EXAM Constitutional: She is oriented to person, place, and time. She appears well- developed and well-nourished. HENT: Head: Normocephalic and atraumatic. Eyes: Pupils are equal, round, and reactive to light. Neck: Normal range of motion. Neck supple. No thyromegaly present. Cardiovascular: Normal rate and regular rhythm. Pulmonary/Chest: Effort normal and breath sounds normal. Neurological: She is alert and oriented to person, place, and time. Skin: Skin is warm and dry. Psychiatric: She has a normal mood and affect. ASSESSMENT ICD-10-CM ICD-9-CM 1. Subclinical hypothyroidism E03.9 244.8 Patient has subclinical hypothyroidism with a very safe TSH level, last FT4 was normal and patient is asymptomatic. As patient is not interested in anymore, per patient lipid panel was fine, she does not have heart disease, normal BP and HR, patient does not require any treatment. There is also evidence that as you get older, TSH could be similar to your age, for example if patient is 69 y/o her TSH could be 6.9. My recommendation is to check TSH every 6 months for now, if she continues to be asymptomatic and TSH stabilizes, she can check once a year in the future. Face to face time: 60 min visit, >50% counseling and coordinating care for her thyroid disease. Kirstie Walters MD 06/01/2020 16:11 Kirstie Walters MD 06/23/2020 9:53 * Dolores Aguiar RN - 06/01/2020 1500 EDT Pt called to ask for corrections to her note. There are several places where it says hyperthyroidism instead of hypothyroidism and those should be corrected. Especially in the very top of the note that says clinical hyperthyroidism. She pointed out all of the hyper's instead of hypothyroids. Also said she has never been in [place], it is [place], in the [facility]. She needs to have Osteoporosis and prediabetes added to her problem list. documented in this encounter Plan of Treatment Not on file documented as of this encounter Visit Diagnoses Diagnosis Subclinical hypothyroidism- Primary Other specified acquired hypothyroidism documented in this encounter Discontinued Medications Medication Sig Discontinue Reason Start Date End Da te acetaminophen (TYLENOL) 325 mg tablet Take 650 mg by mouth every 4 hours as needed. Therapy completed 01/30/2019 06/01/2020 cetirizine (ZYRTEC) 10 mg tablet Take 10 mg by mouth daily. Alternate therapy 06/01/2020 diphenhydrAMINE (BENADRYL) 25 mg capsule Take 25 mg by mouth at bedtime as needed. Therapy completed 06/01/2020 lactobacillus rhamnosus, GG, (CULTURELLE) 10 billion cell capsule Take 1 Cap by mouth daily. Therapy completed 06/01/2020 LORazepam (ATIVAN) 0.5 mg tablet Take 1 mg by mouth at bedtime as needed for Anxiety. Therapy completed 06/01/2020 multivitamin (THERAGRAN) per tablet Take by mouth. Alternate therapy 12/06/2005 020 mupirocin (BACTROBAN) 2 % ointment Apply sparingly to nostrils twice daily after cleaning with a warm washcloth for 10 days and prn crusting Therapy completed 09/12/2018 06/01/2020 oxyCODONE (ROXICODONE) 5 mg immediate release tablet Take 5 mg by mouth every 4 hours as needed. Therapy completed 01/30/2019 06/01/2020 polyethylene glycol (MIRALAX) 17 gram/dose powder Take by mouth. Therapy completed 01/02/2006 06/01/2020 triamcinolone (KENALOG) 0.1 % cream Apply topically BID to affected areas of hands and lower legs Therapy completed 11/01/2018 06/01/2020 documented as of this encounter Historical Medications * This list may reflect changes made after this encounter. Medication Sig Dispensed Refills Start Date End Date calcium citrate 200 mg (950 mg)Indications:takes on occasion, 2-3x a week Take 600 mg by mouth daily. NONFORMULARYIndications: Astaxanthin 4 mg daily. NONFORMULARYIndications: turkey tail mushroom 1 Tablet daily. [employer] Tail Mushroom Multivitamins with Minerals tablet tabletIndications:2 tabs is one serving Take 2 Tablets by mouth daily. cetirizine (ZYRTEC) 10 mg tablet Take 5 mg by mouth daily. predniSONE (DELTASONE) 10 mg tablet Take 2.5 mg by mouth as needed. Magnesium 250 mg tablet Take 500 mg by mouth daily. famotidine (PEPCID) 20 mg tablet Take 10 mg by mouth daily. cholecalciferol, Vitamin D3, 1,000 unit tabletIndications:d3 k2 combination Take 5 Tablets by mouth daily. ascorbic acid, vitamin C, (VITAMIN C) 250 mg tablet Take 700 mg by mouth daily. INV - 977 PRO-OMEGA CAPSULES MAINTENANCE DOSE # 15 caps Take 2 Tabs by mouth daily. 650 epa/450 dha 12/06/2005 triamcinolone (KENALOG) 0.1 % cream Apply topically BID to affected areas of hands and lower legs 11/01/2018 06/01/2020 polyethylene glycol (MIRALAX) 17 gram/dose powder Take by mouth. 01/02/2006 06/01/2020 oxyCODONE (ROXICODONE) 5 mg immediate release tablet Take 5 mg by mouth every 4 hours as needed. 01/30/2019 06/01/2020 multivitamin (THERAGRAN) per tablet Take by mouth. 12/06/2005 06/01/2020 lactobacillus rhamnosus, GG, (CULTURELLE) 10 billion cell capsule Take 1 Cap by mouth daily. 06/01/2020 cetirizine (ZYRTEC) 10 mg tablet Take 10 mg by mouth daily. 06/01/2020 acetaminophen (TYLENOL) 325 mg tablet Take 650 mg by mouth every 4 hours as needed. 01/30/2019 06/01/2020 added in this encounter Care Teams Monomer Purification Operator Relationship Specialty Start Date End Date Tita Pettit MD [address] [place] [address] [address] [place] [address] PCP - General 09/01/11 documented as of this encounter
--- OUTSIDE RECORDS SUMMARY | 2024-07-17 01:48 | XMS_ITS | Clinical Summary ---
Author Organization [facility] Address [address] [place] [address] Care Team Providers Care Name Plate Stamper Name Role Phone Tita Pettit MD Primary Care Provider [phone] Kirstie Aguilar MD Unavailable [phone] Allergies Active Allergy Reactions Criticality Noted [...] NONFORMULARYIndicatio ns:turkey tail mushroom 1 Tablet daily. [employer] Tail Mushroom Active NONFORMULARYIndicatio ns:Astaxanthin 4 mg daily. Active calcium citrate 200 mg (950 mg)Indications:takes on occasion, 2-3x a week Take 600 mg by mouth daily. Active ASCORBATE [id number] ORAL Take 1 Capsule by mouth daily. [...] (TEN IVAC) Preservative Free =>7yo IM 05/18/2009 Surgical History Surgery Date Site/Laterality Comments TONSILLECTOMY KIDNEY STONE SURGERY ANTERIOR CRUCIATE LIGAMENT REPAIR Medical History Medical History Date Comments Kidney stones Angio-edema Substernal goiter 09/14/2018 S/P thyroid surgery 06/15/2021 Family History Medical History Relation Comments Cancer Father Heart Disease Mother Relation Status Comments Father Mother Social History Tobacco Use Types Packs/Day Years [...] 9:32 EDT Sexual Orientation Not on file Obstetrics History Last Filed Vital Signs Vital Sign Reading Time Taken Comments Blood Pressure 122/80 08/10/2023 1139 EDT Pulse 80 08/10/2022 1504 EDT Temperature - - Respiratory Rate - - Oxygen Saturation - - Inhaled Oxygen Concentration - - Weight 77.8 kg (171 lb 9.6 oz) 08/10/2023 1139 E DT Height 163.8 cm (5' 4.5) 08/10/2023 1139 EDT Body Mass Index 29 08/10/2023 1139 EDT Plan of Treatment Health Maintenance Due Date Last Done Comments Hepatitis C Screen 1950 RSV Immunization ( o r 60+ Years) (1 - 1-dose 60+ series) 2010 Fall Risk Screening 09/12/2019 09/12/2018 COVID-19 Vaccine (2022- season) 2023 Care Teams Name Plate Stamper Relationship Specialty Start Date End Date Tita Pettit MD [facility] [address] [place] [address] PCP - General 09/01/11 Kirstie Aguilar MD [address] [place] [address] [address] [place] [phone] Endocrinology, Diabetes and Metabolism 12/16/21
--- OUTSIDE RECORDS SUMMARY | 2024-07-17 01:48 | XMS_ITS | Encounter Summary ---
Author Organization [facility] Address [address] [place] [address] Care Team Providers Care Flux Tube Attendant Name Role Phone Unavailable Primary Care Provider Unavailabl e Encounter Details Date Type Department Care Team (Late st Contact Info) Description 03/31/2010 Results Only [facility] Laboratory Services - [facility] ([facility] [address] [place] [id number] Tita Pettit MD [address] [place] [phone] Social History Tobacco Use Types Packs/Day Years Used Date Smoking Tobacco: Never Assessed Sex and Gender Information Value Date Recorded Sex Assigned at Not on file Gender Identity Female 08/01/2022 9:32 EDT Sexual Orientation Not on file documented as of this encounter Plan of Treatment Not on file documented as of this encounter Procedures Procedure Name Priority Date/Time Associated Diagnosis Comments HPV DETECTION, HIGH RISK TYPES Routine 03/18/2010 20:20 EDT documented in this encounter Results * HUMAN PAPILLOMA VIRUS DNA TEST (03/18/2010 20:20 EDT) Specimen Description Cervix, ThinPrep vial [facility] Result Negative for HPV types 16, 18, 31, 33, 35, 39, 45, 51, 52, 56, 58, 59, and 68. [facility] Report Status Final 04/05/2010 [facility] 03/18/2010 20:2 0 EDT 03/31/2010 20:20 EDT Tita Pettit MD MICROBIOLOGY - GENE RAL ORDERABLES Performing Organization Address City/State/[facility] Co de Phone Number [facility] [address] [place] [address] documented in this encounter Visit Diagnoses Not on filedocumented in this encounter
--- OUTSIDE RECORDS SUMMARY | 2024-07-17 01:48 | XMS_ITS | Encounter Summary ---
Author Organization [facility] Address [address] [place] [address] Care Team Providers Care Auto Service Instructor Name Role Phone Tita Pettit MD Primary Care Provider [phone] Kirstie Aguilar MD Unavailable [phone] Reason for Visit * Reason Comments Thyroid Problem Encounter Details Date Type Department Care Team (Latest Contact Info) Description 08/10/2023 11:45 EDT Telemedicine [facility] [place] [address] [place] [address] Kirstie Aguilar MD [address] [facility] [address] [place] [address] Hypothyroidism (acquired) (Primary Dx); Multiple thyroid nodules Social History Tobacco Use [...] Blood Pressure 122/80 08/10/2023 1139 EDT Pulse - - Temperature - - Respiratory Rate - - Oxygen Saturation - - Inhaled Oxygen Concentration - - Weight 77.8 kg (171 lb 9.6 oz) 08/10/2023 1139 E DT Height 163.8 cm (5' 4.5) 08/10/2023 1139 EDT Body Mass Index 29 08/10/2023 1139 EDT documented in this encounter Functional Status [...] No 09/12/2018 documented as of this encounter Ordered Prescriptions Prescription Sig Dispensed Refills Start Date End Da te levothyroxine (SYNTHROID) 25 mcg tablet Take 1 Tablet by mouth daily. 30 Tablet 2 08/10/2023 documented in this encounter Progress Notes * Mayuri Parra MA - 08/10/2023 1145 EDT Thyroid Ultrasound done at [facility] Labs from [facility] also scanned in * Kirstie Gonzalez MD - 08/10/2023 1145 EDT [facility] [place] Visit Today's visit was provided through telemedicine video conferencing: zoom The location of the patient: doctor's office The location of the provider: Home office Verbal consent: The concept of ???Telemedicine?? has been described to the patient.Patient has been informed of the anticipated benefits and possible risks. Patient understands the information provided regarding telemedicine, has had the opportunity to ask questions about this information, and all questions have been answered to patient???s satisfaction. Patient consents for the use of telemedicine in his/her medical care and authorizes the transmission of any relevant medical information to providers and their staff involved in patient???s medical or mental health care. Verbal consent obtained by myself or auxiliary staff: yes. Subjective: Chief Complaint(s): Thyroid Problem HPI: Georgiana Araya is a very pleasant 71 y.o. female who presents for follow up for subclinical hypothyroidism and thyroid nodule. Last seen in Jul. Last year, she had an US with me in office, inferior nodule grew, was recommended to have a biopsy but she declined. She also has progressed to hypothyroidism but she has refused medicine. Has not had any intercurrent illnesses since last visit. US done this year at [facility]: 2.2 cm x 2.0 x 2.0 cm cystic/solid (US done by me in 2021 showed the nodule to be Sagittal 2.4 cm x AP 1.8 cm x transverse 1.9 cm). Reports good energy. Says she feels great, may be some hair loss or hair thinning. 08/12: TSH 11, FT4 0.66, T3 127, A1c 5.9%. Has had knee pain. Has been healthy since last year. Prior hx: Hx of left lobectomy with a benign biopsy in 2019. I have reviewed patient's tobacco history: reports that she has never smoked. She has never used smokeless tobacco. I have reviewed current problem list and current medications. ROS: ROS Stated above Objective: Examination: Home Vitals: BP 122/80 Ht 163.8 cm (64.5) Wt 77.8 kg (171 lb 9.6 oz) BMI 29.00 kg/m?? Pertinent exam findings: appears well, neck supple, non-labored breathing, no wheeze, no rash on visible skin and mood and affect appropriate Data reviewed with patient: labs, US of thyroid Assessment & Plan: 1. Hypothyroidism (acquired) TSH T4 FREE T3, TOTAL US THYROID/NECK MISCELLANEOUS TEST, [place] TSH T3, TOTAL T4 FREE 2. Multiple thyroid nodules MISCELLANEOUS TEST, [place] TSH T3, TOTAL T4 FREE Georgiana and I had a very long conversation today about goals. She is aware that her nodule has grown since last year and a biopsy was recommended. She still feels she wants to wait and she will let us know if she changes her mind. We know that in 2019 that nodule was benign and probably continues to be benign. With regards of asymptomatic hypothyroidism. Her TSH this time is higher but she feels that she wants to avoid medication. We discussed T4 vs T3 replacements. We discussed why euthyroidism is important and that there are some literature suggesting if patientis asymptomatic that we can wait till TSH is 20 but over that we should treat. She asked for urinary iodine level. That has been ordered. She asked to send LT4 low dose and if she decides to use it, she will check labs in 3 months. The following individuals and their role did participate in today's encounter visit: Provider: Kirstie Walters MD Patient Electronically signed by Kirstie Walters MD I spent a total of 75 minutes on the date of this encounter meeting with the patient and reviewing documentation/coordinating care as described in the above note. No procedures were performed at the time of the visit. documented in this encounter Plan of Treatment Scheduled Orders Name Type Priority Associated Diagnoses Orde r Schedule TSH Lab Routine Hypothyroidism (acquired) Multiple thyroid nodules Expected: 10/31/2023, Expires: 08/10/2024 T3, TOTAL Lab Routine Hypothyroidism (acquired) Multiple thyroid nodules Expected: 10/31/2023, Expires: 08/10/2024 T4 FREE Lab Routine Hypothyroidism (acquired) Multiple thyroid nodules Expected: 10/31/2023, Expires: 08/10/2024 documented as of this encounter Results * MISCELLANEOUS TEST, [place] (08/10/2023 13:04 EDT) [facility] Miscellaneous Test, [place] SEE NOTE 08/15/2023 19:[address] [facility] Comment: Test ?Result ??Flag ??Unit ?RefValue [...] developed and its performance characteristics ?determined by [facility] in a manner consistent with CLIA ?requirements. This test has not been cleared or approved by ?the U.S. Food and Drug Administration. ??Iodine Concentration ?238 ? mcg/L ?Iodine/Creat Ratio, U ? 209 ? mcg/g Cr ??<584 ?Creatinine, Random, U ? 114 ? mg/dL ? 16 - 326 ?Test Performed by: ?[facility] ?[address] [place] [address] ?[employer]: Geraldo Lee M.D. Ph.D.; CLIA# [id number] ?Test Performed by: ?[facility] ?[address] [place] [address] ?[employer]: Geraldo Lee M.D. Ph.D.; CLIA# [id number] Blood URINE / Unknown Non-Lab Collect / Unknown 08/10/2023 13:04 EDT 08/10/2023 13:40 EDT Kirstie Aguilar MD CHEMISTRY & BLOOD GA S ORDERABLES Performing Organization Address City/State/[facility] Co de Phone Number [address] [address] documented in this encounter Visit Diagnoses Diagnosis Hypothyroidism (acquired)- Primary Unspecified hypothyroidism Multiple thyroid nodules Nontoxic multinodular goiter documented in this encounter Care Teams Auto Service Instructor Relationship Specialty Start Date End Date Tita Pettit MD [address] [place] [address] [address] [place] [address] PCP - General 09/01/11 Kirstie Aguilar MD [address] [place] [address] [address] [place] [id number] Endocrinology, Diabetes and Metabolism 12/16/21 documented as of this encounter
--- OUTSIDE RECORDS SUMMARY | 2024-07-17 01:48 | XMS_ITS | Encounter Summary ---
Author Organization [facility] Address [address] [place] [address] Care Team Providers Care Power Transformer Inspector Name Role Phone Tita Pettit MD Primary Care Provider [phone] Kirstie Aguilar MD Unavailable [phone] Reason for Visit * Reason Onset Date Comments Results 08/31/2023 Encounter Details Date Type Department Care Team (Late st Contact Info) Description 08/31/2023 Telephone [facility] [place] [address] [place], [place] [address] Shyann Sanchez RN Results Social History Tobacco Use Types Packs/Day Years [...] Telephone Encounter - Shyann Sanchez RN - 09/01/2023 1007 EDT Pt. Given this information, has no questions * Telephone Encounter - Shyann Sanchez RN - 09/01/2023 0808 EDT Images from the original note were not included. Kirstie Tamez MD Benoit, Bonnie, RN Please tell her that the level is normal in the high side (there is no deficiency and if she is taking a supplement, she can cut back on it). Thanks MPS * Telephone Encounter - Shyann Sanchez RN - 08/31/2023 1552 EDT Pt called looking for results of urine test done on 08/10 ( a urinary iodine level) documented in this encounter Plan of Treatment Not on file documented as of this encounter Visit Diagnoses Not on filedocumented in this encounter Care Teams Power Transformer Inspector Relationship Specialty Start Date End Date Tita Pettit MD [address] [place] [address] [address] [place] [phone] PCP - General 09/01/11 Kirstie Aguilar MD [address] [place] [address] [place] [address] Endocrinology, Diabetes and Metabolism 12/16/21 documented as of this encounter
--- OUTSIDE RECORDS SUMMARY | 2024-07-17 01:48 | XMS_ITS | Encounter Summary ---
Author Organization [facility] Address [address] [place] [address] Care Team Providers Care Sound Editor Name Role Phone Tita Pettit MD Primary Care Provider [phone] Reason for Visit * Reason Comments Wrist Injury left wrist doi 06/30 Encounter Details Date Type Department Care Team (Late st Contact Info) Description 09/02/2011 13:00 EDT Office Visit [facility] Hand & Upper Extremity Program - [address] [place], [place] [id number] Escobar Biswas Radius fracture (Primary Dx); RSD upper limb Social History Tobacco Use Types Packs/Day Years [...] - - Weight 72.6 kg (160 lb) 09/02/2011 1304 EDT Height 165.1 cm (5' 5) 09/02/2011 1304 EDT Body Mass Index 26.63 09/02/2011 1304 EDT documented in this encounter Progress Notes * Escobar Biswas MD - 09/07/2011 1707 EDT This office note has been dictated. * Vania Cintron - 09/02/2011 1357 EDT XYLOCAINE LOT # [id number] [facility] # [id number] EXP DATE 02/01 SPIKE MAKER-DAVID DEPO MEDROL 40 mg LOT # [id number] [facility] # [id number] EXP DATE 03/31 SPIKE MAKER-PFIZER Vania Cintron documented in this encounter Plan of Treatment Not on file documented as of this encounter Procedures Procedure Name Priority Date/Time Associated Diagnosis Comments WRIST 3 OR MORE VIEWS Routine 09/02/2011 13:24 EDT Radius fracture documented in this encounter Results * WRIST 3 OR MORE VIEWS (09/02/2011 13:24 EDT) Anatomical Region Laterality Modality Other 09/02/2011 13:2 4 EDT 09/02/2011 15:24 EDT Narrative 09/02/2011 15:24 EDT WRIST 3 OR MORE VIEWS ??Sep 02, 2011 01:24:00 PM Signs and Symptoms/Comments: ??813.81-CLOSED FRACTURE OF UNSPECIFIED PART OF RADIUS (ALONE)-ICD-9-CM left distal radius fr Technique: PA, lateral, and 2 oblique views of the left wrist are obtained with no comparison available. Findings: There is evidence of a healing fracture of the distal radius with moderate dorsal angulation of the distal radius. ??The surrounding bones are osteopenic. The ulna appears intact. I have personally reviewed the images and the above interpretation and agree with the findings. Procedure Note Zack Torres MD - 09/02/2011 WRIST 3 OR MORE VIEWS Sep 02, 2011 01:24:00 PM Signs and Symptoms/Comments: 813.81-CLOSED FRACTURE OF UNSPECIFIED PART OF RADIUS (ALONE)-ICD-9-CM left distal radius fr Technique: PA, lateral, and 2 oblique views of the left wrist are obtained with no comparison available. Findings: There is evidence of a healing fracture of the distal radius with moderate dorsal angulation of the distal radius. The surrounding bones are osteopenic. The ulna appears intact. I have personally reviewed the images and the above interpretation and agree with the findings. Escobar Biswas G DIAGNOSTIC IMAGI NG ORDERABLES documented in this encounter Visit Diagnoses Diagnosis Radius fracture- Primary Closed fracture of unspecified part of radius (alone) RSD upper limb Reflex sympathetic dystrophy of the upper limb * Evaluation - Escobar Biswas MD - 09/08/2011 1423 EDT [facility] NEW PATIENT EVALUATION - 09/02/2011 PROBLEM: 1. Status post left distal radius fracture 06/29/11. 2. Complex regional pain syndrome, left wrist. SUBJECTIVE: A 60-year-old right-hand dominant female who sustained a fall onto an outstretched leftupper extremity on the 29 of June. [facility]. Her progress and has been complicated by prolonged pain and swelling of the left wrist. The patient states that over the past week there has been some mild improvement in her range of motion of the left wrist. She was referred to our clinic for consultation and assessment. PAST MEDICAL HISTORY: Significant for a history of kidney stones. SOCIAL HISTORY: Denies alcohol and tobacco use. FAMILY HISTORY: Father with lung cancer, mother with cardiac disease. MEDICATIONS: Vitamin C, L-lysine, vitamin D. ALLERGIES: SULFA. REVIEW OF SYSTEMS: Please see medical intake data form for complete review of systems. Data form read, reviewed and signed by me today. OBJECTIVE: On physical exam, pleasant and cooperative, alert and oriented x3, well-developed, well-nourished female in no significant distress. Left upper extremity was examined and found to have a moderately swollen, slightly erythematous, warm left wrist. No significant hyperesthesia or allodynia. Marked limitation in range of motion of the wrist to flexion to 30 degrees, extension 40 degrees, supination 60 degrees, pronation 65 degrees. Digital range of motion shows extension to -20 degrees at the PIP joint, flexion to 2 cm from the distal palmar crease of the tips of the fingers upon flexion. Left elbow range of motion was complete and left elbow was nontender throughout. Left shoulder s howed full active range of motion. DIAGNOSTIC DATA: Radiographs of the left wrist were obtained today revealing a healed metadiaphyseal left distal radius fracture. There is significant osteopenia of the bones of the left wrist and carpus. 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 PLAN: Recommend intraarticular corticosteroid injection left wrist to hopefully alleviate some of the fibrotic process. We also discussed the possibility of an oral course of prednisone; however, thepatient was more interested in the local injection and not taking the oral medication. After the risks, benefits and options of the injection were explained, consent was obtained and 1 mL of Depo-Medrol 40 into the left radiocarpal joint region. Recommend aggressive occupational therapy. I stressed the importance that the fracture is well healed and there is no risk from a bone standpoint of her being aggressive with her therapy. Electronically Signed by Escobar Biswas MD 09/15/2011 17:31 Escobar Biswas MD [address] [place], [place] [id number] - Escobar Biswas MD - [facility] Job ID: SM Doc ID: [id number] Ext Doc ID: [id number] cc: Tita Pettit MD documented in this encounter Historical Medications * This list may reflect changes made after this encounter. Medication Sig Dispensed Refills Start Date End Date UNABLE TO FIND Med Name: l lysine 09/12/2018 Calcium Acetate (PHOSLO) 667 mg Cap Take 1,334 mg by mouth 3 times daily. 09/12/2018 calcium-vitamin D (OS-ALBERTO D) 500 mg(1,250mg) -200 unit per tablet Take 1 Tab by mouth 2 times daily with meals. 09/12/2018 added in this encounter Care Teams Sound Editor Relationship Specialty Start Date End Date Tita Pettit MD [address] [place] [address] [address] [place] [address] PCP - General 09/01/11 documented as of this encounter
--- OUTSIDE RECORDS SUMMARY | 2024-07-17 01:48 | XMS_ITS | Encounter Summary ---
Author Organization [facility] Address [address] [place] [address] Care Team Providers Care Educational Diagnostician Name Role Phone Tita Pettit MD Primary Care Provider [phone] Encounter Details Date Type Department Care Team (Late st Contact Info) Description 04/30/2013 Results Only [facility] Laboratory Services - [facility] ([facility] [address] [place] [address] Tita Pettit MD [address] [place] [address] [address] [place] [address] Social History Tobacco Use Types [...] Diagnosis Comments PAP TEST- RESULT ONLY Routine 04/30/2013 0:00 EDT documented in this encounter Results * PAP TEST- RESULT ONLY (04/30/2013 0:00 EDT) Pathology Report: CYTOPATHOLOGY REPORT Reports generated via electronic interface contain original data; however they are lacking the format of the original report. Caution should be taken when reading/interpreti ng unformatted reports. Name: ? GEORGIANA ARAYA ? Accession #: ? [id number] ? : ? 1950 (Age: 62) ??F ?Collect Date: ? 04/30/2013 ? Location: ? [facility] ? Receive Date: ? 05/01/2013 ? Provider: TITA PETTIT MD Copy to: ? Final Report SPECIMEN ADEQUACY ? Satisfactory for Evaluation - transformation zone component present GENERAL CATEGORIZATION ? Negative for Intraepithelial Lesion or Malignancy ?? Menstrual/Pregnanc y Status: ??Post Menopausal Specimen/Source: ??Pap Test, Cervix/Endocervix, ThinPrep Imaging System with manual evaluation Document reviewed and electronically signed by: ? Cris Hackett, SHERRI(ASCP) ? Report ??Date: 05/07/2013 11:39 HPV with Pap Test ? Date Ordered: ? 05/07/2013 ? Status: ?? Signed Out ?Date Complete: ? 05/09/2013 ? By: ??System Interface ? Date Reported: ? 05/09/2013 ? Interpretation RESULT: Positive for high or intermediate risk HPV. E6 OR E7 mRNA from one or more types of HPV types 16,18,31, 33,35,39,45,51,52, 56,58,59,66, and 68 is detected by nuclear spectroscopist mediated amplification. High and intermediate risk HPV types are associated with most squamous intraepithelial lesions and cervical cancers. Comments Document reviewed and electronically signed by: ? System Interface ? Report date: 05/09/2013 By the signature above, the attending physician certifies that he/she has personally conducted a gross and/or microscopic examination of the described specimens and rendered or confirmed the above diagnosis. End of Report [facility] 04/30/2013 05/01/2013 Tita Pettit MD PATHOLOGY ORDERABLE S [facility] [address] [place] [address] documented in this encounter Visit Diagnoses Not on filedocumented in this encounter Care Teams Educational Diagnostician Relationship Specialty Start Date End Date Tita Pettit MD [address] [place] [address] PCP - General 09/01/11 documented as of this encounter
--- OUTSIDE RECORDS SUMMARY | 2024-07-17 01:48 | XMS_ITS | Encounter Summary ---
Author Organization [facility] Address [address] [place] [address] Care Team Providers Care Email Operations Manager Name Role Phone Tita Pettit MD Primary Care Provider Kirstie Aguilar MD Unavailable [phone] Encounter Details Date Type Department Care Team (Late st Contact Info) Description 03/20/2024 Lab Requisition [facility] Pathology & Laboratory Medicine - [facility] [address] [place] [address] Tita Pettit MD [facility] [address] [place] [id number] Encounter for other general examination Social History [...] Date/Time Associated Diagnosis Comments PAP TEST Today 03/18/2024 13:45 EDT Encounter for other general examination HPV GENOTYPES 16 AND 18/45 Today 03/18/2024 13:45 EDT Encounter for other general examination HPV DNA DETECTION WITH GENOTYPING, PCR Today 03/18/2024 13:45 EDT Encounter for other general examination documented in this encounter Results * (ABNORMAL) HPV GENOTYPES 16 AND 18/45 (03/18/2024 13:45 EDT) HPV High Risk type 16, PCR Positive(A) Negative 03/28/2024 13:29 EDT [facility] HPV18/45 RNA (HPV18/45) Negative Negative 03/28/2024 13:29 EDT [facility] Pap Test CERVIX UTERI STRUCTURE / Unknown 03/18/2024 13:45 EDT 03/25/2024 15:47 EDT Tita Pettit MD MICROBIOLOGY - [facility] ORDERABLES [facility] [address] [place] [phone] * (ABNORMAL) HUMAN PAPILLOMAVIRUS (HPV) DETECTION-HIGH RISK TYPES (03/18/2024 13:45 EDT) HPV other High Risk types, PCR Positive( A) Negative 03/28/2024 13:29 EDT [facility] Comment:E6 OR E7 mRNA from o ne or more types of HPV types 16,18,31,33,35,39,45,51,52,56,58,59,66, and 68 is detected by cafeteria attendant mediated amplification. High and intermediate risk HPV types are associated with most squamous intraepithelial lesions and cervical cancers. Pap Test CERVIX UTERI STRUCTURE / Unknown 03/18/2024 13:45 EDT 03/25/2024 15:47 EDT Tita Pettit MD MICROBIOLOGY - [facility] ORDERABLES [facility] [address] [place] [address] * PAP TEST (03/18/2024 13:45 EDT) Specimens A. Cervix and/or Endocervix , ThinPrep Imaging System with Manual Evaluation 03/28/2024 13:29 [facility] Specimen Adequacy Satisfactory for Evaluation - transformation zone component present 03/28/2024 13:29 [facility] General Categorization Epithelial Cell Abnormality 03/28/2024 13:29 [facility] Descriptive Diagnosis Squamous Cell Abnormality - Atypical squamous cells, undetermined significance (ASC-US). 03/28/2024 13:29 [facility] Educational Comments [facility] recommends following the ASCCP's management guidelines which may be found at www.asccp.org 03/28/2024 13:29 [facility] Attestation By the signature below, the attending physician certifies that they have personally conducted a gross and/or microscopic examination of the described specimens and rendered or confirmed the above diagnosis. 03/28/2024 13:29 [facility] at 1329 Clinical History See below 03/28/20 13:29 [facility] HPV The result for the Human Papillomavirus (HPV) Detection-High Risk Types is Positive . E6 OR E7 mRNA from one or more types of HPV types 16,18,31,33,35,39 ,45,51,52,56,58,5 9,66, and 68 is detected by cafeteria attendant mediated amplification. High and intermediate risk HPV types are associated with most squamous intraepithelial lesions and cervical cancers. Testing was performed on specimen [id number] and was resulted on 03/26/2024 1701 EDT by KASSIDY, LAB INSTRUMENT RESULTS IN 03/28/2024 13:29 EDT [facility] Genotyping 16 & 18/45 The results for the HPV Genotypes 16 and 18/45 are Positive for the HPV16 RNA and Negative for the HPV18/45 RNA (HPV18/45). Testing was performed on specimen [id number] and was resulted on 03/28/2024 1328 EDT by KASSIDY, LAB INSTRUMENT RESULTS IN 03/28/2024 13:29 EDT [facility] Performing Lab [facility] 03/28/2024 13:29 EDT [facility] Scanned Images 03/28/2024 13:29 EDT [facility] Pap Test CERVIX UTERI STRUCTURE / Unknown 03/18/2024 13:45 EDT 03/20/2024 9:44 EDT Tita Pettit MD PATHOLOGY ORDERABLE S [facility] [address] [place], [place] [phone] documented in this encounter Visit Diagnoses Diagnosis Encounter for other general examination documented in this encounter Care Teams Email Operations Manager Relationship Specialty Start Date End Date Tita Pettit MD [address] [place] [address] [address] [place] [phone] PCP - General 09/01/11 Kirstie Aguilar MD [address] [place] [address] [place] [phone] Endocrinology, Diabetes and Metabolism 12/16/21 documented as of this encounter
--- OUTSIDE RECORDS SUMMARY | 2024-07-17 01:48 | XMS_ITS | Encounter Summary ---
Author Organization [facility] Address [address] [place] [address] Care Team Providers Care Rotoformer Backtender Name Role Phone Tita Pettit MD Primary Care Provider [phone] Reason for Visit * Reason Comments Arm Pain left arm Encounter Details Date Type Department Care Team (Late st Contact Info) Description 01/24/2012 13:15 EST Office Visit [facility] Hand & Upper Extremity Program - [address] [place] [address] Escobar Biswas Carpal tunnel syndrome (Primary Dx) Social History Tobacco Use Types Packs/Day Years Used Date Smoking Tobacco: Never Assessed Sex and Gender Information Value Date Recorded Sex Assigned at Not on file Gender Identity Female 08/01/2022 9:32 EDT Sexual Orientation Not on file documented as of this encounter Progress Notes * Escobar Biswas MD - 01/30/2012 0843 EDT ORTHOPAEDICS AND REHABILITATION SERVICES PROGRESS/FOLLOWUP NOTE - 01/24/2012 PROBLEM: Traumatic left carpal tunnel syndrome. SUBJECTIVE: The patient returns today for evaluation of her recent nerve conduction studies. She isstatus post left distal radius fracture in 06/2011 and began presenting with what appear to be posttraumatic carpal tunnel syndrome. Nerve conduction studies performed today by Dr Paul Kelly revealed moderate to severe left carpal tunnel syndrome. His evaluation also felt that she has largely resolved her left hand complex regional pain syndrome. Her left ulnar nerve was normal. ASSESSMENT: Posttraumatic left carpal tunnel syndrome. PLAN: A conservative attempt with a corticosteroid injection into the carpal tunnel regions was discussed. The patient consented; 1 mL Depo-Medrol 40 to left carpal tunnel region today. We will set up a tentative surgical consultation in 2 to 3 months if the corticosteroid injection does not have long lasting relief. Electronically Signed by Escobar Biswas MD 02/09/2012 14:36 Escobar Biswsa MD [address] [place] [address] - Escobar Biswas MD - CD Job ID: SM Doc ID: [id number] Ext Doc ID: [id number] cc: MD Junaid Zavala [facility] [place] * Escobar Biswas MD - 01/25/2012 1635 EST This office note has been dictated. * Vania Cintron - 01/24/2012 1414 EST XYLOCAINE LOT # [id number] [facility] # [id number] EXP DATE 06/03 CORPORATE TREASURER-DAVID DEPO MEDROL 40 mg LOT # [id number] [facility] # [id number] EXP DATE 05/31 CORPORATE TREASURER-PFIZER Vania Cintron documented in this encounter Plan of Treatment Not on file documented as of this encounter Visit Diagnoses Diagnosis Carpal tunnel syndrome- Primary documented in this encounter Care Teams Rotoformer Backtender Relationship Specialty Start Date End Date Tita Pettit MD [address] [place] [address] PCP - General 09/01/11 documented as of this encounter
--- OUTSIDE RECORDS SUMMARY | 2024-07-17 01:48 | XMS_ITS | Encounter Summary ---
Author Organization [facility] Address [address] [place] [address] Care Team Providers Care Pulp Cooker Name Role Phone Tita Pettit MD Primary Care Provider [phone] Kirstie Aguilar MD Unavailable [phone] Encounter Details Date Type Department Care Team (Late st Contact Info) Description 11/29/2021 Lab Requisition [facility] Pathology & Laboratory Medicine - [address] [address] [address] Lugo [address] [place] [address] [place] [address] Encounter for other general examination Social History [...] Procedure Name Priority Date/Time Associated Diagnosis Comments SURGICAL PATHOLOGY Today 11/29/2021 14 :35 EST Encounter for other general examination documented in this encounter Results * SURGICAL PATHOLOGY (11/29/2021 14:35 EST) Note to Patient The following pathology results have been interpreted by your pathologist and may be available to you before your health provider has had the opportunity to review them. Please allow time for your provider to receive these results and explore management options, if applicable. 12/01/2021 18:20 [facility] Final Diagnosis A. ENDOCERVIX, CURETTAGE: - Endocervical mucus. - Rare fragments of benign metaplastic squamous epithelium. - Scant benign endocervical cells. 12/01/2021 18:20 [facility] Attestation By the signature below, the attending physician certifies that they have 1) personally conducted a gross and/or microscopic examination of the described specimen(s), and/or personally interpreted the results of laboratory testing of the described specimen(s), and 2) personally rendered or confirmed the above diagnosis. 12/01/2021 18:20 [facility] at 1820 Clinical History ASCUS, +HPV 12/01/2021 18:20 [facility] Gross Description A. Received in formalin labelled with proper patient identification (initials H, P) and ECC is a 1.0 x 0.6 x 0.4 cm aggregate of opaque mucus. The specimen is entirely submitted in A1. FRANDY BOYKIN(ASCP) 11/30/2021 8:00 12/01/2021 18:20 [facility] Performing Lab [facility] 12/01/2021 18:20 [facility] Scanned Images 12/01/2021 18:20 [facility] Tissue ENTIRE ENDOCERVIX / Unknown 11/29/2021 14:35 EST 11/29/2021 23:58 EST Kim Lugo PATHOLOGY ORDERABLES [facility] [address] [place] [address] documented in this encounter Visit Diagnoses Diagnosis Encounter for other general examination documented in this encounter Care Teams Pulp Cooker Relationship Specialty Start Date End Date Tita Pettit MD [address] [place] [address] [address] [place] [address] PCP - General 09/01/11 Kirstie Aguilar MD [address] [place] [address] [address] [place] [phone] Endocrinology, Diabetes and Metabolism 12/16/21 documented as of this encounter
--- OUTSIDE RECORDS SUMMARY | 2024-07-17 01:49 | XMS_ITS | Encounter Summary ---
Author Organization [facility] Address [facility] [place] [address] Care Team Providers Care Store Consultant Name Role Phone Tita Pettit MD Primary Care Provider [phone] Reason for Visit * Reason Comments Colposcopy Encounter Details Date Type Department Care Team (Latest Contact Info) Description 08/16/2016 9:30 AM EDT Procedure visit Obstetric[place] [address] Chasidy Martino MD [facility] DR OBSTETRICS & [place] [address] Cervical high risk HPV (human papillomavirus) test positive Social History Tobacco Use Types Packs/Day Years Used Date Smoking Tobacco: Never Sex and Gender Information Value Date Recorded Sex Assigned at Not on file Gender Identity Not on file Sexual Orientation Not on file documented as of this encounter Last Filed Vital Signs Vital Sign Reading Time Taken Comments Blood Pressure 129/78 08/16/2016 9:47 AM EDT Pulse 66 08/16/2016 9:47 AM EDT Temperature - - Respiratory Rate - - Oxygen Saturation 99% 08/16/2016 9:47 AM EDT Inhaled Oxygen Concentration - - Weight 74 kg (163 lb 3.2 oz) 08/16/2016 9:47 AM EDT Height 163.8 cm (5' 4.5) 08/16/2016 9:47 AM EDT Body Mass Index 27.58 08/16/2016 9:47 AM EDT documented in this encounter Procedure Notes * Chasidy Martino MD - 08/16/2016 9:30 AM EDTAssociated Order(s): COLPOSCOPY - CERVIX Pre-Procedure Diagnose(s): Cervical high risk HPV (human papillomavirus) test positive Ms. Bertrand is a 65 y.o. P4 here for colposcopy, referred by Dr. Tita Pettit. Her last pap smear was negative, with + high risk HPV done 05/04. Her pap smear last year was normal, with + HR HPV. She had type 16 & non 16/18 HPV on HPV testing here last fall. She has always had nl pap smears. Had nl pap neg HR HPV [id number]. ?? In 2012, despite nl pap smears, her cotesting was positive for HR HPV, and remained positive in 2013. , monogamous. She is a nonsmoker. Patient Active Problem List Diagnosis Code ??? Cervical high risk human papillomavirus (HPV) DNA test positive R87.810 ??? Lysine 500 mg Capsule ??? lactobacillus rhamnosus, GG, (CULTURELLE) 10 billion cell Capsule ??? polyethylene glycol (MIRALAX) 17 gram/dose powder ??? CIS Free Text Med - femarin ??? multivitamin (THERAGRAN) tablet ??? DOCOSAHEXANOIC ACID/EPA (FISH OIL ORAL) ??? B Complex Vitamins (B COMPLEX) TbSR ??? ZINC ORAL Body mass index is 27.58 kg/(m^2). Immediately prior to the start of the procedure, I confirmed the patient's identity, intended procedure, and insured that the proper equipment was present for the procedure. On exam, external genitalia normal. No warts seen. Vagina and cervix without lesion, atrophic. Colposcopic evaluation using 5% acetic acid showed faint flat AWE anteriorly, nonspecific; the squamocolumnar junction was inside canal, only partially seen. There is no vascular change suggestive of a high grade lesion. Vaginal fornices were examined and no suspicious lesions noted, atrophic. Machine Operator Transplanter biopsy was done at endocervic 12:00 , along with ECC. Bleeding was controlled using Monsells solution. Impression: Squamous metaplasia vs HPV Plan: Will contact patient with results, message on cellphone. If pathology neg, continue yearly pap smears, but could hold on yearly HPV testing, and would not repeat colpo with nl or low grade pap testing for another 2-3 years unless pap progresses to HG. documented in this encounter Plan of Treatment Upcoming Encounters Date Type Department Care Team (Late st Contact Info) Description 09/30/2024 9:20 AM EST Office Visit Dermatology at [facility] [address] [place] [phone] documented as of this encounter Procedures Procedure Name Priority Date/Time Associated Diagnosis Comments COLPOSCOPY (CLINIC/MSO) Routine 08/16/2016 10:29 AM EDT Cervical high risk HPV (human papillomavirus) test positive SPECIMEN TO PATHOLOGY (NON-OR) Routine 08/16/2016 10:29 AM EDT Cervical high risk HPV (human papillomavirus) test positive SURGICAL PATHOLOGY REPORT Routine 08/16/2016 10:29 AM EDT documented in this encounter Results * COLPOSCOPY - CERVIX (08/16/2016 10:29 AM EDT) Narrative Chasidy Martino MD - 08/16/2016 10:29 AM EDT Chasidy Martino MD ? 08/16/2016 10:29 AM Ms. Bertrand is a 65 y.o. ??P4 ??here for colposcopy, referred by Dr. Tita Pettit. Her last pap smear was negative, with + high risk HPV done 05/04. ?? Her pap smear last year was normal, with + HR HPV. She had type 16 & non 16/18 HPV on HPV testing here last fall. She has always had nl pap smears. Had nl pap neg HR HPV [id number]. ?? In 2012, despite nl pap smears, her cotesting was positive for HR HPV, and remained positive in 2013. , monogamous. She is a nonsmoker. Patient Active Problem List Diagnosis Code ? ? Cervical high risk human papillomavirus (HPV) DNA test positive R87.810 ?Lysine 500 mg Capsule ?lactobacillus rhamnosus, GG, (CULTURELLE) 10 billion cell Capsule ?polyethylene glycol (MIRALAX) 17 gram/dose powder ?CIS Free Text Med - femarin ?multivitamin (THERAGRAN) tablet ?DOCOSAHEXANOIC ACID/EPA (FISH OIL ORAL) ?B Complex Vitamins (B COMPLEX) TbSR ?ZINC ORAL Body mass index is 27.58 kg/(m^2). Immediately prior to the start of the procedure, I confirmed the patient's identity, intended procedure, and insured that the proper equipment was present for the procedure. On exam, external genitalia normal. No warts seen. Vagina and cervix without lesion, atrophic. Colposcopic evaluation using 5% acetic acid showed faint flat AWE anteriorly, nonspecific; the squamocolumnar junction was inside canal, only partially seen. ?? There is no vascular change suggestive of a high grade lesion. ?? Vaginal fornices were examined and no suspicious lesions noted, atrophic. ??Machine Operator Transplanter biopsy was done at endocervic 12:00 , along with ECC. ??Bleeding was controlled using Monsells solution. Impression: Squamous metaplasia vs HPV Plan: Will contact patient with results, message on cellphone. If pathology neg, continue yearly pap smears, but could hold on yearly HPV testing, and would not repeat colpo with nl or low grade pap testing for another 2-3 years unless pap progresses to HG. ?? Chasidy Martino MD OB GYNE ORDERABLES * Surgical Pathology Report (08/16/2016 10:29 AM EDT) Final Diagnosis [id number] ? Location: 5L The signing pathologist has (i) examined the relevant preparation(s) for the specimen(s) and (ii) rendered or confirmed the diagnosis(es). . ?Surgical Pathology DIAGNOSIS A - Endocervical biopsy at 12:00: Superficial fragments of atrophic squamous mucosa with parakeratosis, no evidence of dysplasia or HPV effect. B - Endocervical curettings: ?1. Fragments of atypical metaplastic squamous mucosa intermixed ? with fragments of endocervical mucosa, mucus, and blood clot. ?2. No definite evidence of dysplasia or HPV effect. CR-0 Electronically signed by: ??Corona LUNA, Abiola Mcknight Verified: ??08/22/2016 ?Pathologist DISCUSSION A - Multiple step levels were examined. CLINICAL INFORMATION Specimen Submitted: A - Endocervical biopsy 12:00 B - ECC Clinical History: Normal Pap with positive HR HPV Clinical Diagnosis: HPV ??vs. squamous metaplasia SPECIMEN PROCESSING A - Labeled/Fixative : 12 o ??'clock endocervix biopsy, formalin. Quantity/Size: Single, 0.5 cm. Tissue Description: ??Soft, white tissue . Sections/Process ing: (T1) B - Labeled/Fixative : ECC, formalin. Quantity/Size: Fragments, 1.5 cm. Tissue Description: Aggregate of pink and white mucus. Sections/Process ing: (T1) ??sns 08/22/2016 9:29 AM EDT [facility] ENDOCERVICAL STRUCTURE / Unknown 08/16/2016 10:29 AM EDT 08/16/2016 10:29 AM EDT ENDOCERVICAL STRUCTURE / Unknown 08/16/2016 10:29 AM EDT 08/16/2016 10:29 AM EDT Chasidy Martino MD PATHOLOGY/CYTOLOGY ORDERABLES Performing Organization Address [facility] [place] [address] * Specimen to Pathology (NON-OR) (08/16/2016 10:29 AM EDT) AP Specimen 08/16/2016 10:2 9 AM EDT 08/16/2016 10:29 AM EDT Narrative [facility] - 08/16/2016 10:29 AM EDT Specimen requisition ordered. ??Separate Pathology report to follow Chasidy Martino MD PATHOLOGY/CYTOLOGY ORDERABLES Performing Organization Address [facility]/ZIP Co de Phone Number [place] [address] documented in this encounter Visit Diagnoses Diagnosis Cervical high risk HPV (human papillomavirus) test positive Cervical high risk human papillomavirus (HPV) DNA test positive documented in this encounter Care Teams Store Consultant Relationship Specialty Start Date End Date Tita Pettit MD [address] [place] [address] PCP - General 05/11/15 documented as of this encounter
--- OUTSIDE RECORDS SUMMARY | 2024-07-17 01:49 | XMS_ITS | Encounter Summary ---
Author Organization [facility] Address [address] [place] [address] Care Team Providers Care Rivet Hammer Machine Operator Name Role Phone Unavailable Primary Care Provider Unavailabl e Encounter Details Date Type Department Care Team (Late st Contact Info) Description 02/11/2008 Results Only [facility] [address] [place] [address] Tita Pettit MD [address] [place] [id number] Social History Tobacco Use Types Packs/Day Years [...] Comments HPV DETECTION, HIGH RISK TYPES Routine 02/11/2008 11:41 EDT CYTOPATHOLOGY Routine 02/11/2008 0:00 EDT documented in this encounter Results * HUMAN PAPILLOMA VIRUS DNA TEST (02/11/2008 11:41 EDT) Specimen Description Cervix, ThinPrep vial [facility] Result Quantity not sufficient. [facility] Report Status Final [id number] [facility] 02/11/2008 11:4 1 EDT 02/15/2008 11:41 EDT Tita Pettit MD MICROBIOLOGY - GENE RAL ORDERABLES [facility] [address] [place] [address] * CYTOPATHOLOGY (02/11/2008 0:00 EDT) Pathology Report: CYTOPATHOLOGY REPORT Reports generated via electronic interface contain original data; however they are lacking the format of the original report. Caution should be taken when reading/interpreti ng unformatted reports. Name: ? GEORGIANA ARAYA ? Accession #: ? [id number] : ? 1950 (Age: 57) ??F ?Collect Date: ? 02/11/2008 Location: ? [facility] ? Receive Date: ? 02/11/2008 Provider: ?TITA PETTIT MD Copy to: ? Specimen/Source: ?ThinPrep Pap Test, Endocervix, processed on [employer] ThinPrep Imaging System, with manual evaluation Last Menstrual Period: ? Menstrual/Pregnanc y Status: ? Post Menopausal Other: ? HPVDX - HPV testing requested regardless of diagnosis on current ThinPrep Pap test. ? SPECIMEN ADEQUACY ? Satisfactory for Evaluation - assessment of transformation zone component not applicable ( e.g. atrophy, vaginal sample, hysterectomy) GENERAL CATEGORIZATION ? Negative for Intraepithelial Lesion or Malignancy ? Document reviewed and electronically signed by: ? SHERRI Waller(ASCP) ? Report Date: ??02/14/2008 16:15 End of Report [facility] 02/11/2008 02/11/2008 Tita Pettit MD PATHOLOGY ORDERABLE S [facility] [address] [place] [address] documented in this encounter Visit Diagnoses Not on filedocumented in this encounter
--- OUTSIDE RECORDS SUMMARY | 2024-07-17 01:49 | XMS_ITS | Encounter Summary ---
Author Organization [facility] Address [facility] [place] [address] Care Team Providers Care Cytogenetic Technician Name Role Phone Tita Pettit MD Primary Care Provider [phone] Reason for Visit * Consultation (Routine) - Closed Specialty Diagnoses / Procedures Referred By Contac t Referred To Contact Dermatology Diagnoses Disorder of the skin and subcutaneous tissue, unspecified skin disorder Tita Pettit MD [facility] [address] [facility] [address] [place] [address] [facility] Dermatology [address] [place] [address] Referral ID Status Reason Start Date Expiration Date V isits Requested Visits Authorized [id number] Closed Consult, Test & Treat Connection Center PCP Updated and/or Approved 03/23/2020 03/23/2021 1 1 Encounter Details Date Type Department Care Team (Late st Contact Info) Description 03/30/2020 4:20 PM EDT Office Visit Dermatology at [facility] [address] [place] [phone] Celine Duarte MD [facility] [address] [place] [address] Dilated pore of Jose; Postinflammatory hyperpigmentation; Actinic keratoses Social History Tobacco Use Types Packs/Day Years Used Date Smoking Tobacco: Never Smokeless Tobacco: Never Sex and Gender Information Value Date Recorded Sex Assigned at Not on file Gender Identity Not on file Sexual Orientation Not on file documented as of this encounter Progress Notes * Celine Duarte MD - 03/30/2020 4:20 PM EDT DERMATOLOGY OUTPATIENT CLINIC NOTE Date of service: 03/30/2020 Georgiana Bertrand : 1950 Provider: Celine Duarte MD PROBLEM: spot under left eye SKIN HISTORY: AKs Eczematous Dermatitis HPI Georgiana Bertrand is a 69 y.o. year old female. She was last seen by myself on 11/01/2018. Here today for a lesion under the left eye that has been present for several years. It was treated with LN2 2-3 years ago and resolved but has since recurred. It is not painful or itchy. She also notes that the lesion biopsied on her back at her previous visit has faded is not bothersome. Social History: Retired, Teacher ?? Family History: PGM - melanoma ADR: Allergies Allergen Reactions ??? Sulfa (Sulfonamide Antibiotics) CURRENT MEDICATIONS: Current Outpatient Medications Medication Sig Dispense Refill ??? omega-3/dha/epa/dpa/fish oil (OMEGA-3 2100 ORAL) Take by mouth. ??? ascorbic acid, Vitamin C, (Vitamin C) 250 mg Tablet Take 1,000 mg by mouth Daily. ??? cetirizine (ZyrTEC) 10 mg Tablet Take 10 mg by mouth daily. ??? famotidine (Pepcid) 20 mg Tablet Take 20 mg by mouth 2 times daily. ??? cholecalciferol, Vitamin D3, 1,000 unit Tablet Take by mouth daily. ??? magnesium 250 mg Tablet Take by mouth. ??? mupirocin (BACTROBAN) 2 % Ointment apply topically inside the nose with a q- tip TID x 3 weeks (Patient not taking: Reported on 03/25/2020) 22 g 0 ??? triamcinolone (KENALOG) 0.1 % Cream Apply topically BID to affected areas of hands and lower legs (Patient not taking: Reported on 03/25/2020) 83 g 0 ??? Lysine 500 mg Capsule Take by mouth. ??? lactobacillus rhamnosus, GG, (CULTURELLE) 10 billion cell Capsule Take 1 capsule by mouth daily. ??? polyethylene glycol (MIRALAX) 17 gram/dose powder 1 tspn in 6 oz water, PO, Once daily,PRN (Patient not taking: No sig reported) ??? CIS Free Text Med - femarin (Patient not taking: No sig reported) ??? multivitamin (THERAGRAN) tablet ??? DOCOSAHEXANOIC ACID/EPA (FISH OIL ORAL) (Patient not taking: No sig reported) ??? B Complex Vitamins (B COMPLEX) TbSR (Patient not taking: No sig reported) ??? ZINC ORAL (Patient not taking: No sig reported) No current facility-administered medications for this visit. PROBLEM LIST: Patient Active Problem List Diagnosis Code ??? Cervical high risk human papillomavirus (HPV) DNA test positive R87.810 ROS General: feeling well. Oriented X 3. Skin: denies other skin complaints EXAM General: NAD, pleasant, cooperative Skin: A focused examination of the face and back was performed. Significant skin findings: - Nasal dorsum x2, left cheek x1: 0.2-0.3cm scaly irregular pink papules. - Central back: Large poral opening with central keratin plug. - Right mid back: Postinflammatory hyperpigmentation, significantly faded ASSESSMENT/PLAN Actinic keratoses - Explained etiology, natural history, and premalignant potential of these lesions. - Discussed treatment with cryotherapy, including the risks and benefits. - Patient elects to proceed with cryotherapy today. Procedure: Destruction of lesions with cryotherapy (LN2). Locations: As noted above. Number: 3 Discussed procedure and expectations, including risks (especially hypopigmentation) and benefits. Verbal consent obtained. Frozen with LN2, 15-30 second thaw time, twice. There were no complications;patient tolerated the procedure well. Post-procedure expectations and wound care reviewed. - Instructed patient to return to clinic for re-evaluation if lesions do not resolve with this treatment. Dilated pore of Jose - Joint decision to express today. Gentle pressure was applied with a comedone extractor until contents were expressed. Postinflammatory hyperpigmentation, resolving - No additional treatment necessary. RTC - 1 year for FSE, sooner if needed. Appointment routed for scheduling. Instructed patient to call with any questions or concerns. Note initiated and routed to physician for review and change by: Trinidad Carrasquillo, [facility] I, Li Carrasquillo, have performed the documentation for this encounter in the presence of and acting as a scribe for Celine Duarte MD. I, Dr. Celine Duarte, performed the visit service though my nurse assisted me in scribing the note. I reviewed and edited this note above, a scribed service performed by my nurse. On closure of this note I agree with the accuracy of the documentation. Celine Duarte MD Section of Dermatology [facility] documented in this encounter Plan of Treatment Upcoming Encounters Date Type Department Care Team (Late st Contact Info) Description 09/30/2024 9:20 AM EST Office Visit Dermatology at [facility] [address] [place] [address] documented as of this encounter Visit Diagnoses Diagnosis Dilated pore of Jose Postinflammatory hyperpigmentation Dyschromia, unspecified Actinic keratoses Actinic keratosis documented in this encounter Care Teams Cytogenetic Technician Relationship Specialty Start Date End Date Tita Pettit MD [address] [place] [address] PCP - General 05/11/15 documented as of this encounter
--- OUTSIDE RECORDS SUMMARY | 2024-07-17 01:49 | XMS_ITS | Encounter Summary ---
Author Organization [facility] [place] [address] Care Team Providers Care Ux Manager Name Role Phone Tita Pettit MD Primary Care Provider [phone] Reason for Referral * Consultation (Routine) - Authorized Specialty Diagnoses / Procedures Referred By Contac t Referred To Contact Dermatology Diagnoses Disorder of skin and subcutaneous tissue SKIN LESIONS Tita Pettit MD [address] [place] [address] [facility] Dermatology [address] [place] [address] Referral ID Status Reason Start Date Expiration Date Visits Requested Visits Authorized [id number] Authorized Consult, Test & Treat PCP Updated and/or Approved 03/18/2024 03/18/2025 12 12 Encounter Details Date Type Department Care Team (Late st Contact Info) Description 03/25/2024 Transcribe Orders eDH Incoming Referrals [phone] Tita Pettit MD [address] [place] [address] Disorder of skin and subcutaneous tissue Social History Tobacco Use Types Packs/Day Years Used Date Smoking Tobacco: Never Smokeless Tobacco: Never Sex and Gender Information Value Date Recorded Sex Assigned at Not on file Gender Identity Not on file Sexual Orientation Not on file documented as of this encounter Plan of Treatment Upcoming Encounters Date Type Department Care Team (Late st Contact Info) Description 09/30/2024 9:20 AM EST Office Visit Dermatology at [facility] [address] [place] [address] Scheduled Referrals Name Type Priority Associated Diagnoses Orde r Schedule Referral to Dermatology Outpatient Referral Routine Disorder of skin and subcutaneous tissue Ordered: 03/25/2024 documented as of this encounter Visit Diagnoses Diagnosis Disorder of skin and subcutaneous tissue Unspecified disorder of skin and subcutaneous tissue documented in this encounter Care Teams Ux Manager Relationship Specialty Start Date End Date Tita Pettit MD [address] [place] [address] [address] [place] [address] PCP - General 05/11/15 documented as of this encounter
--- OUTSIDE RECORDS SUMMARY | 2024-07-17 01:49 | XMS_ITS | Encounter Summary ---
Author Organization [facility] Address [facility] [place] [address] Care Team Providers Care Economic Developer Name Role Phone Tita Pettit MD Primary Care Provider [phone] Reason for Visit * Reason Comments Skin Check Encounter Details Date Type Department Care Team (Late st Contact Info) Description 11/01/2018 10:00 AM EST Office Visit Dermatology at [facility] [address] [place] [address] Celine Duarte MD [facility] [address] [address] Neoplasm of uncertain behavior of skin; AK (actinic keratosis); Eczema, unspecified type; Infection, skin, staph Social History Tobacco Use Types Packs/Day Years Used Date Smoking Tobacco: Never Smokeless Tobacco: Never Sex and Gender Information Value Date Recorded Sex Assigned at Not on file Gender Identity Not on file Sexual Orientation Not on file documented as of this encounter Patient Instructions * Patient Instructions* Ngoc Whitney - 11/01/2018 10:00 AM EST 11/01/2018 Instructions for Georgiana Bertrand: Treatment and Wound Care Instructions Your treatment today: You have had a punch biopsy of your skin, which is a removal of tissue for examination under a microscope. There are stitches in the wound that will need to be removed in 7-10 days. If bleeding occurs, hold firm pressure against the wound for 15 minutes. If bleeding continues, call the office or go to your local emergency room. Please allow 1-2 weeks for the biopsy results to return. Your physician or nurse will contact you with the results by phone or letter; follow-up will be discussed at that time. Wound Care Instructions: You will need to keep the dressing placed over the wound dry and intact for 24 hours. Afterwards, perform the following wound care daily until your stitches are removed: ?? Wash your hands before changing the dressing. ?? Remove the bandage and clean the area with mild soap and water, then gently pat the area dry. ?? Apply a small amount of Vaseline to the area, then cover the wound with a band-aid. Change your dressing daily until the wound is fully healed. ?? A small amount of yellow drainage is part of normal healing. You might notice some redness around the edge of the wound. This is normal. ?? Please contact the office you you notice any of the following signs of infection: increased tenderness, pain, drainage, or redness that becomes hot or hard around the wound. If you have further questions or concerns, please call the office at [phone]. If it is after 5PM, or a holiday or weekend, please call [phone] and ask for the Audiology Assistant on-call. documented in this encounter Progress Notes * Celine Duarte MD - 11/01/2018 10:00 AM EST Images from the original note were not included. DERMATOLOGY OUTPATIENT CLINIC NOTE Date of service: 11/01/2018 Georgiana Bertrand : 1950 Provider: Celine Duarte MD PROBLEM: Lesion SKIN HISTORY: AKs HPI Georgiana Bertrand is a 68 y.o. year old female. Here today with her for a concerning area on her back that she first noticed on 10/19/2018 when she was returning from [place]. She can't see it herself well, so her has been watching it for her. Her notes at first it was red and now it is darker. She has recently seen 4 different doctors and all referred to Dermatology. She a lso mentions recurring sores in her nose, and elsewhere on her body. She complains of very dry lower legs and has been applying coconut oil which helps. She is wondering with if this is something toxic coming out. She reports a recent dx of angioneurotic edema. She saw an machine pie maker for this who told her this doesn't seem due to external allergies or any foods. She reports tongue swelling and throat closing due to this. She has an epipen and Prednisone from allergy for this. Social History: Retired, Teacher Family History: PGM - melanoma ADR: Allergies Allergen Reactions ??? Sulfa (Sulfonamide Antibiotics) CURRENT MEDICATIONS: Current Outpatient Medications Medication Sig Dispense Refill ??? cholecalciferol, Vitamin D3, 1,000 unit Tablet Take by mouth daily. ??? magnesium 250 mg Tablet Take by mouth. ??? Lysine 500 mg Capsule Take by mouth. ??? lactobacillus rhamnosus, GG, (CULTURELLE) 10 billion cell Capsule Take 1 capsule by mouth daily. ??? polyethylene glycol (MIRALAX) 17 gram/dose powder 1 tspn in 6 oz water, PO, Once daily,PRN (Patient not taking: No sig reported) ??? CIS Free Text Med - femarin (Patient not taking: No sig reported) ??? multivitamin (THERAGRAN) tablet (Patient not taking: No sig reported) ??? DOCOSAHEXANOIC ACID/EPA (FISH OIL ORAL) (Patient [...] complaints EXAM General: NAD, pleasant, cooperative Skin: Focused skin examination of the face, neck & back was normal with the exception of the findings listed below. Significant skin findings: -Right mid-back: 3cm reticulate red-brown patch. [Figure A] -Multiple thin pink gritty papules on the nose. -Patient reports h/o sores in the nose. -Eczematous plaques on the bilateral lower legs. Images Photo taken and charted with patient consent [Figure A] ASSESSMENT/PLAN Neoplasm of the Skin DDx: Phytophoto dermatitis vs Trauma vs Connective Tissue vs Erythema Ab igne Procedure: Skin biopsy by punch technique. Time of procedure: 9:54 am Location: Right mid-back [Figure A] Discussed indications for the procedure and expectations including risks and benefits. Verbal consent obtained. Skin prep with alcohol. Local anesthesia: 1% lidocaine with 1/100,000 epinephrine. A 4mm punch biopsy to the level of the subcutis was performed. Wound closed with monofilament suture. There were no complications; the patient tolerated the procedure well. The wound was dressed. Post-procedure expectations (including discomfort management), wound care and activity restrictions were reviewed. Follow-up based on pathology results. Suture removal: 7-10 days Actinic Keratoses - Patient has an upcoming surgery, will monitor these for now and Staph colonization - Start Rx: Mupirocin ointment - apply topically inside the nose with a q-tip TID x 3 weeks Eczematous Dermatitis - Start Rx: Triamcinolone cream - use 2 times daily as needed for itch Follow up: based on pathology results. April 2019 for 6 month follow up of AKs on nose- or sooner asneeded. Note initiated and routed to physician for review and change by: OBINNA LARSON, MARSHA I, Ngoc Whitney, have performed the documentation for this encounter [...] documentation. Celine Duarte MD Section of Dermatology [facility] * Celine Duarte MD - 11/01/2018 10:00 AM EST Called patient back with results- appears post inflammatory. Hard to determine initial inciting incident. I suspect it will fade with time. All questions answered. Follow up PRN Celine Duarte MD documented in this encounter Plan of Treatment Upcoming Encounters Date Type Department Care Team (Late st Contact Info) Description 09/30/2024 9:20 AM EST Office Visit Dermatology at [facility] [address] [place] [address] documented as of this encounter Procedures Procedure Name Priority Date/Time Associated Diagnosis Comments SURGICAL PATHOLOGY REPORT Routine 11/01/2018 10:03 AM EST SPECIMEN TO PATHOLOGY Routine 11/01/2018 10:03 AM EST Neoplasm of uncertain behavior of skin documented in this encounter Results * Surgical Pathology Report (11/01/2018 10:03 AM EST) Final Diagnosis [id number] ? Location: [facility] The signing pathologist has (i) examined the relevant preparation(s) for the specimen(s) and (ii) rendered or confirmed the diagnosis(es). . ?Surgical Pathology DIAGNOSIS Skin, right mid back, punch biopsy: - ??Post-inflammato ry pigment alterations, sparse perivascular lymphocytes and erythrocyte extravasation ?? (see discussion) Electronically signed by: ??Colby Quezada MD Verified: ??11/07/2018 ?Dermatopatholog ist Performed at: ??-[facility] Dept. of Pathology, [place], [place] DISCUSSION The subtle, nonspecific features are most compatible with a resolving inflammatory process. ??Although there are scattered dyskeratotic cells and mild vascular ectasia, unequivocal findings that would distinguish between clinically considered phytophotodermati tis and erythema ab igne are not identified. ??There is no evidence of connective tissue disease in this sample. Consensus diagnosis was established among dermatopathologis ts. ADDITIONAL STUDIES Multiple step-leveled sections are examined. CLINICAL INFORMATION Specimen Submitted: A - Skin, right mid-back, punch (1) Clinical History and Diagnosis: 3 cm reticulated red-brown patch; trauma versus connective tissue versus erythema ab igne SPECIMEN PROCESSING A - Labeled/Fixative: Patient demographics, formalin. Quantity/Size: ??Single, 0.5 cm. Tissue Description: Punch of yellow-conroy skin excised to a depth of 0.4 cm. Sections/Processi ng: Bisected and entirely submitted in 1 cassette labeled A1. ??ejr 11/07/2018 5:32 PM EST [facility] SPECIMEN FROM SKIN / Unknown 11/01/2018 10:03 AM EST 11/01/2018 10:03 AM EST Celine Duarte MD PATHOLOGY/CYTOLOG Y ORDERABLES Performing Organization Address City/[facility]/ZIP Co de Phone Number [facility] [place] [address] * Specimen to Pathology (11/01/2018 10:03 AM EST) AP Specimen 11/01/2018 10:0 3 AM EST 11/01/2018 1:34 PM EST Narrative [facility] - 11/01/2018 1:35 PM EST Specimen requisition ordered. ??Separate Pathology report to follow Resulting Agency Comment Spec In Lab Celine Duarte MD PATHOLOGY/CYTOLOG Y ORDERABLES Performing Organization Address City/[facility]/[place] [address] documented in this encounter Visit Diagnoses Diagnosis Neoplasm of uncertain behavior of skin AK (actinic keratosis) Actinic keratosis Eczema, unspecified type Infection, skin, staph Unspecified local infection of skin and subcutaneous tissue documented in this encounter Care Teams Economic Developer Relationship Specialty Start Date End Date Tita Pettit MD [address] [place] [address] PCP - General 05/11/15 documented as of this encounter
--- OUTSIDE RECORDS SUMMARY | 2024-07-17 01:49 | XMS_ITS | Encounter Summary ---
Author Organization [facility] Address [address] [place] [address] Care Team Providers Care Lehr Attendant Name Role Phone Unavailable Primary Care Provider Unavailabl e Encounter Details Date Type Department Care Team (Late st Contact Info) Description 02/06/2007 Results Only [facility] [address] [place] [address] Shruthi Ervin MD [address] [place], [place] [address] Social History Tobacco Use Types Packs/Day Years Used Date Smoking Tobacco: Never Assessed Sex and Gender Information Value Date Recorded Sex Assigned at Not on file Gender Identity Female 08/01/2022 9:32 EDT Sexual Orientation Not on file documented as of this encounter Plan of Treatment Not on file documented as of this encounter Procedures Procedure Name Priority Date/Time Associated Diagnosis Comments CYTOPATHOLOGY Routine 02/06/2007 0:00 EDT documented in this encounter Results * CYTOPATHOLOGY (02/06/2007 0:00 EDT) Pathology Report: CYTOPATHOLOGY REPORT Reports generated via electronic interface contain original data; however they are lacking the format of the original report. Caution should be taken when reading/interpreti ng unformatted reports. Name: ? GEORGIANA ARAYA ? Accession #: ? [id number] : ? 1950 (Age: 56) ??F ?Collect Date: ? 02/06/2007 Location: ? [facility] ? Receive Date: ? 02/07/2007 Provider: ?SHRUTHI ERVIN MD Copy to: ? Specimen/Source: ?ThinPrep Pap Test, Cervix/Endocervix, processed on [employer] [facility] ThinPrep Imaging System, with manual evaluation Last Menstrual Period: ? 2000 Other: ? HPVA - HPV testing requested if ASC-US on the current ThinPrep Pap test. ? SPECIMEN ADEQUACY ? Satisfactory for Evaluation - transformation zone component present GENERAL CATEGORIZATION ? Negative for Intraepithelial Lesion or Malignancy ? Document reviewed and electronically signed by: ? Shruthi Turk, SCT(ASCP) ? Report Date: ??02/09/2007 11:31 End of Report [facility] BE[facility]ARANO 02/06/2007 02/07/2007 Shruthi Ervin MD PATHOLOGY ORDERABLES [facility] [address] [place] [address] documented in this encounter Visit Diagnoses Not on filedocumented in this encounter
--- OUTSIDE RECORDS SUMMARY | 2024-07-17 01:49 | XMS_ITS | Encounter Summary ---
Author Organization [facility] Address [address] [place] [address] Care Team Providers Care Skid Machine Operator Name Role Phone Unavailable Primary Care Provider Unavailabl e Encounter Details Date Type Department Care Team (Latest Contact Info) Description 07/15/2003 7:28 EDT - 07/15/2003 11:59 EDT Hospital Encounter [facility] - Other [address] [place] [address] Monroe Lora, Shruthi Malloy MD [address] [place], [place] [id number] Discharge Disposition: Auto Discharge Social History Tobacco Use Types Packs/Day Years Used Date Smoking Tobacco: Never Assessed Sex and Gender Information Value Date Recorded Sex Assigned at Not on file Gender Identity Female 08/01/2022 9:32 EDT Sexual Orientation Not on file documented as of this encounter Discharge Disposition Disposition Code Departure Means Destination Auto Discharge documented in this encounter Plan of Treatment Not on file documented as of this encounter Procedures Procedure Name Priority Date/Time Associated Diagnosis Comments MA MAMMO SCREENING DIGITAL Routine 07/15/2003 14:45 EDT documented in this encounter Results * MA MAMMO SCREENING DIGITAL (07/15/2003 14:45 EDT) Anatomical Region Laterality Modality Other 07/15/2003 14:4 5 EDT Impressions 08/04/2009 5:37 EDT IMPRESSION: BILATERAL BREASTS - CATEGORY 1 Negative, no evidence of malignancy. Normal interval follow-up is recommended in 12 months. OVERALL ASSESSMENT - NEGATIVE END OF IMPRESSION Narrative 08/04/2009 5:37 EDT ROUTINE HX RT BR SEBACEOUS CYST, LT BR B9 FNA, LAST MAMMO 03/20 IN [place],FILMS ARE HERE PER ERICH BCC ??[PCP ASHELY ANDERS PT] BCC @ 3:30 Comparison is made to films from 03-26-2001. Bilateral Breast Findings (CAD used to interpret routine digital projection): The breasts are heterogeneously dense. This may lower the sensitivity of mammography. No significant masses, calcifications or other abnormalities are seen. Procedure Note Cece Arroyo MD - 08/04/2009 ROUTINE HX RT BR SEBACEOUS CYST, LT BR B9 FNA, LAST MAMMO 03/20 IN [place],FILMS ARE HERE PER ERICH BCC [PCP ASHELY ANDERS PT] BCC @ 3:30 Comparison is made to films from 03-26-2001. Bilateral Breast Findings (CAD used to interpret routine digital projection): The breasts are heterogeneously dense. This may lower the sensitivity of mammography. No significant masses, calcifications or other abnormalities are seen. IMPRESSION IMPRESSION: BILATERAL BREASTS - CATEGORY 1 Negative, no evidence of malignancy. Normal interval follow-up is recommended in 12 months. OVERALL ASSESSMENT - NEGATIVE END OF IMPRESSION Erica Seo MD IMG MAMMOGRAPHY ORDERABLES documented in this encounter Visit Diagnoses Not on filedocumented in this encounter
--- OUTSIDE RECORDS SUMMARY | 2024-07-17 01:49 | XMS_ITS | Clinical Summary ---
Author Organization [facility] Address [facility] [place] [address] Care Team Providers Care Gas Utility Worker Name Role Phone Tita Pettit MD Primary Care Provider [phone] Allergies Active Allergy Reactions Criticality Noted Date Comments Sulfa (Sulfonamide Antibiotics) Medications Medication Sig Dispensed Refills Start Date End Date Status CIS Free Text Med - femarin 12/06/2005 Active Additional Information Patient not taking.Reported on 11/01/2018 multivitamin (THERAGRAN) tablet 12/06/2005 Active DOCOSAHEXANOIC ACID/EPA (FISH OIL ORAL) 12/06/2005 Active B Complex Vitamins (B COMPLEX) TbSR 12/06/2005 Active ZINC ORAL 12/06/2005 Active polyethylene glycol (MIRALAX) 17 gram/dose powder 1 tspn in 6 oz water, PO, Once daily,PRN 01/02/2006 Active Lysine 500 mg Capsule Take by mouth. Active lactobacillus rhamnosus, GG, (CULTURELLE) 10 billion cell Capsule Take 1 capsule by mouth daily. Active cholecalciferol, Vitamin D3, 1,000 unit Tablet Take by mouth daily. Act surekha magnesium 250 mg Tablet Take by mouth. Active mupirocin (BACTROBAN) 2 % OintmentIndications: Infection, skin, staph apply topically inside the nose with a q-tip TID x 3 weeks 22 g 11/01/2018 Active Additional Information Patient not taking.Reported on 03/25/2020 triamcinolone (KENALOG) 0.1 % CreamIndications:Ecz ramón, unspecified type Apply topically BID to affected areas of hands and lower legs 83 g 11/01/2018 Active Additional Information Patient not taking.Reported on 03/25/2020 omega-3/dha/epa/dpa/ fish oil (OMEGA-3 2100 ORAL) Take by mouth. Active ascorbic acid, Vitamin C, (Vitamin C) 250 mg Tablet Take 1,000 mg by mouth Daily. Active cetirizine (ZyrTEC) 10 mg Tablet Take 10 mg by mouth daily. Active famotidine (Pepcid) 20 mg Tablet Take 20 mg by mouth 2 times daily. Active Active Problems Problem Noted Date Diagnosed Date Cervical high risk human pap illomavirus (HPV) DNA test positive 09/16/2015 Social History Tobacco Use Types Packs/Day Years Used Date Smoking Tobacco: Never Smokeless Tobacco: Never Sex and Gender Information Value Date Recorded Sex Assigned at Not on file Gender Identity Not on file Sexual Orientation Not on file Last Filed [...] Mass Index 27.58 08/16/2016 9:47 AM EDT Plan of Treatment Upcoming Encounters Date Type Department Care Team (Late st Contact Info) Description 09/30/2024 9:20 AM EST Office Visit Dermatology at [facility] [address] [place] [address] Health Maintenance Due Date Last Done Comments CT Colonography 1950 Colonoscopy 1950 Colorectal Cancer Screening 1950 FIT DNA 1950 FIT 1950 Sigmoidoscopy (10 year) with FIT yearly 1950 Sigmoidoscopy 1950 Hepatitis C Screening 1968 Tdap adult 1969 Tetanus vaccine 1969 Breast Cancer Share Decision Needed 1990 Breast Cancer screening 1990 Zoster vaccine (1 of 2) 2000 Advance Directive 2005 Bone Density Scan 2015 Pneumoccocal Vaccine: 65+ (1 of 1 - PCV) 2015 Covid-19 Vaccine (1 - 2022-24 season) 2023 Influenza (Flu) vaccine (1 o f 1 - Influenza standard series) 07/21/2024 HPV test Discontinued 09/16/2015 PAP Smear Discontinued 09/16/2015 Procedures Procedure Name Priority Date/Time Associated Diagnosis Comments HPV Routine 09/16/2015 10:02 AM EDT SLP CYTOLOGY FINAL REPORT Routine 09/16/2015 10:02 AM EDT from Last 3 Months or Most Recently Relevant to Health Maintenance Results * (ABNORMAL) HPV (09/16/2015 10:02 AM EDT) HPV16 POSITIVE(A) [facility] HPV 18 NEGATIVE [facility] HPV Other HR POSITIVE(A) [facility] HPV Interpretation POSITIVE for high-risk HPV* (Type 16 AND High risk type other than types 16 or 18): It is recommended that patients with ASCUS cytology and a positive test for high-risk HPV undergo further evaluation according to current practice guidelines. ??* Testing positive for high risk HPV means that the specimen is positive for at least one of the following 14 types tested: ??types 16, 18, 31, 33, 35, 39, 45, 51, 52, 56, 58, 59, 66, and 68. Shemar Marino?? HPV test Specimen: HPV Testing - Cytology Liquid Based Prep [facility] Cervical swab (specimen) 09/16/2015 10:02 AM EDT 09/17/2015 2:56 PM EDT Narrative Resulting Agency Comment Spec In Lab Chasidy Martino MD PATHOLOGY/CYTOLOGY ORDERABLES [facility] * Corporate Travel Coordinator Cytology Final Report (09/16/2015 10:02 AM EDT) Corporate Travel Coordinator Cytology Final Report The signing pathologist has (i) examined the relevant preparation(s) for the specimen(s) and (ii) rendered or confirmed the diagnosis(es). Accession Number: [id number] ?Location: 5L . ? Corporate Travel Coordinator Final DIAGNOSIS NORMAL Negative for Intraepithelial Lesion or Malignancy (NILM). 09/23/15 ?? Screened by: ??LMY ??DMG 09/23/15 ?? Verified by: ??Arthur POLANCO(ASCP), Marlena Ramirez - Hot Box Spotter DISCUSSION Please also see concurrent HPV test result. STATEMENT OF ADEQUACY Specimen submitted is satisfactory. Endocervical component present. CLINICAL INFORMATION HPV Option: ?Concurrent HPV and Pap Preparation: ? Liquid based Pap Specimen Source: ? Cervical/Endocervic al LMP: ? n/a Hormones?: ? No Hysterectomy?: ? No ?: ? No ?: ? No I.U.D.?: ? No Pelvic Radiation: ?No Prior SLP Therapy?: ?No Hist Abnl Pap/Biopsy?: ?? No Hist of HPV Vaccine?: ?No Hist of Smoking?: ?No Hist of RONNY exposure?: ?? No ICD Diagnosis: ? V76.2 Screening Pap no symptoms Clinical Data, Significant Therapy and Clinical Impression: This Pap Test has been evaluated with the assistance of the [employer]p Pap Test Imaging System. Note: The Pap test is a screening test for cervical cancer with an inherent false-negative rate dependent upon several variables. ??For further information please contact the [facility] Laboratory. Reference: ??Ana CS. ??Public Health Staff Nurse of Pap Smear Results. ??In: ??Tavares BS, Carlos A HH, ed. ??The Pap Smear. ??[place]: ??Crow, 2002: ??71-77. LOUISE SARMIENTOENNIUM 09/16/2015 10:0 2 AM EDT Chasidy Martino MD PATHOLOGY/CYTOLOGY ORDERABLES [facility] from Last 3 Months or Most Recently Relevant to Health Maintenance Care Teams Gas Utility Worker Relationship Specialty Start Date End Date Tita Pettit MD [address] [place] [address] [address] [place] [address] PCP - General 05/11/15
--- OUTSIDE RECORDS SUMMARY | 2024-07-17 01:49 | XMS_ITS | Encounter Summary ---
[place] [address] Care Team Providers Care Cloth Bleaching Range Tender Name Role Phone Tita Pettit MD Primary Care Provider Reason for Visit * Reason Onset Date Comments Results 08/23/2016 Encounter Details Date Type Department Care Team (Late st Contact Info) Description 08/23/2016 Telephone [place]stetrics [place] [phone] Gina Luis RN Results Social History Tobacco Use Types Packs/Day Years Used Date Smoking Tobacco: Never Sex and Gender Information Value Date Recorded Sex Assigned at Not on file Gender Identity Not on file Sexual Orientation Not on file documented as of this encounter Miscellaneous Notes * Telephone Encounter - Gina Luis RN - 08/24/2016 11:55 AM EDT Pt informed of negative biopsy results. Dr Martino will call her next week to discuss. Pt verbalizes understanding. * Telephone Encounter - Gina Luis RN - 08/23/2016 1:32 PM EDT Called pt. Left message per Dr Martino. Biopsies negative for precancer. Dr Martino will call pt next week. documented in this encounter Plan of Treatment Upcoming Encounters Date Type Department Care Team (Late st Contact Info) Description 09/30/2024 9:20 AM EST Office Visit Dermatology at [facility] [address] [place] [address] documented as of this encounter Visit Diagnoses Not on filedocumented in this encounter Care Teams Cloth Bleaching Range Tender Relationship Specialty Start Date End Date Tita Pettit MD [address] [place] [address] PCP - General 05/11/15 documented as of this encounter
--- OUTSIDE RECORDS SUMMARY | 2024-07-17 01:49 | XMS_ITS | Encounter Summary ---
Author Organization [facility] Address [facility] [place] [address] Care Team Providers Care Building Maintenance Custodian Name Role Phone Tita Pettit MD Primary Care Provider [phone] Reason for Visit * Reason Comments Establish Care Encounter Details Date Type Department Care Team (Late st Contact Info) Description 09/16/2015 9:15 AM EDT Office Visit Obstetrics [place] [address] Chasidy Martino MD [facility] [place] [address] Cervical high risk HPV (human papillomavirus) test positive Social History Tobacco Use Types Packs/Day Years Used Date Smoking Tobacco: Never Sex and Gender Information Value Date Recorded Sex Assigned at Not on file Gender Identity Not on file Sexual Orientation Not on file documented as of this encounter Last Filed Vital Signs Vital Sign Reading Time Taken Comments Blood Pressure 106/60 09/16/2015 9:18 AM EDT Pulse - - Temperature - - Respiratory Rate - - Oxygen Saturation - - Inhaled Oxygen Concentration - - Weight 73.9 kg (163 lb) 09/16/2015 9:18 AM EDT Height - - Body Mass Index - - documented in this encounter Progress Notes * Chasidy Martino MD - 09/16/2015 10:08 AM EDT Ms. Bert[place] is a 64 y.o.P4 seen at the request of Dr. Tita Dobbertin for + HR HPV test. She has always had nl pap smears. Had nl pap neg HR HPV [id number]. In 2012, despite nl pap smears, her cotesting was positive for HR HPV, and remained positive in 2013 and this year 2014 in April. She has not had a colposcopy done. Non smoker, no history of warts. for 20 years, monogamous. She has done a lot of research on the internet and is very concerned about her risk of cervical cancer. History of oral cold sores (lysine helps), elevated ferritin (@ 167), intermittent rash on chest and upper arms. Wonders if any of these are related to HPV. PMH: X 4, T&A 196, arthroscopic surgery 1988, history of broken wrist 2011. Meds: taking supplements to try and boost immune system Outpatient Prescriptions Marked as Taking for the 09/16/15 encounter (Office Visit) with Chasidy Martino MD Medication Sig Dispense Refill ??? Lysine 500 mg Capsule Take by mouth. ??? lactobacillus rhamnosus, GG, (CULTURELLE) 10 billion cell Capsule Take 1 capsule by mouth daily. ??? multivitamin (THERAGRAN) tablet ??? DOCOSAHEXANOIC ACID/EPA (FISH OIL ORAL) ??? B Complex Vitamins (B COMPLEX) TbSR Patient Active Problem List Diagnosis Code ??? Cervical high risk human papillomavirus (HPV) DNA test positive R87.810 BP 106/60 mmHg Wt 73.936 kg (163 lb) On exam, external genitalia nl, atrophic. Vagina and cervix without lesion, atrophic, cervix multipwithout lesion, pap smear done. Uterus nl in size, adnexa neg. Impression: Recent HPV + testing Plan: Check pap and concurrent HPV test, will give results via cellphone. Discussed colposcopy, she would rather wait for the results of testing today before scheduling. She is given written info on HPV. Briefly discussed natural history of HPV, and lack of knowledge about regression when occurs in midlife; I answered her questions about HPV and her risks of cervical cancer (exceedingly low). Discussed I didn't think any of the issues noted about were related to her HPV. F/u depending upon results. I spent 30 minutes total with the patient, with 25 minutes of the time spent [id number] in discussing her diagnosis and reviewing options for treatment documented in this encounter Plan of Treatment Upcoming Encounters Date Type Department Care Team (Late st Contact Info) Description 09/30/2024 9:20 AM EST Office Visit Dermatology at [facility] [address] [place] [address] documented as of this encounter Procedures Procedure Name Priority Date/Time Associated Diagnosis Comments HPV Routine 09/16/2015 10:02 AM EDT TEMPLATE MAKER CYTOLOGY INTERPRETATION Routine 09/16/2015 10:02 AM EDT TEMPLATE MAKER CYTOLOGY FINAL REPORT Routine 09/16/2015 10:02 AM EDT CYTOPATHOLOGY GYNECOLOGICAL Routine 09/16/2015 10:02 AM EDT Cervical high risk HPV (human papillomavirus) test positive documented in this encounter Results * TEMPLATE MAKER Cytology Interpretation (09/16/2015 10:02 AM EDT) Pulp Operator Cytology Interpretation [facility] Comment:Pulp Operator Cytology Final R eport Endocervical Component Present [facility] AP Specimen 09/16/2015 10:0 2 AM EDT 09/16/2015 11:41 AM EDT Chasidy Martino MD PATHOLOGY/CYTOLOGY ORDERABLES Performing Organization Address City/State/[place] Co de Phone Number [facility] * Pulp Operator Cytology Final Report (09/16/2015 10:02 AM EDT) Pulp Operator Cytology Final Report The signing pathologist has (i) examined the relevant preparation(s) for the specimen(s) and (ii) rendered or confirmed the diagnosis(es). Accession Number: [id number] ?Location: 5L . ? Pulp Operator Final DIAGNOSIS NORMAL Negative for Intraepithelial Lesion or Malignancy (NILM). 09/23/15 ?? Screened by: ??LMY ??DMG 09/23/15 ?? Verified by: ??Arthur POLANCO(ASCP), Marlena Ramirez - Remnants Cutter DISCUSSION Please also see concurrent HPV test result. STATEMENT OF ADEQUACY Specimen submitted is satisfactory. Endocervical component present. CLINICAL INFORMATION HPV Option: ?Concurrent HPV and Pap Preparation: ? Liquid based Pap Specimen Source: ? Cervical/Endocervic al LMP: ? n/a Hormones?: ? No Hysterectomy?: ? No ?: ? No ?: ? No I.U.D.?: ? No Pelvic Radiation: ?No Prior TEMPLATE MAKER Therapy?: ?No Hist Abnl Pap/Biopsy?: ?? No Hist of HPV Vaccine?: ?No Hist of Smoking?: ?No Hist of RONNY exposure?: ?? No ICD Diagnosis: ? V76.2 Screening Pap no symptoms Clinical Data, Significant Therapy and Clinical Impression: This Pap Test has been evaluated with the assistance of the C3Nanop Pap Test Imaging System. Note: The Pap test is a screening test for cervical cancer with an inherent false-negative rate dependent upon several variables. ??For further information please contact the [facility] Laboratory. Reference: ??Ana [place]. ??Ingot Weigher of Pap Smear Results. ??In: ??Tavares BS, Carlos A HH, ed. ??The Pap Smear. ??[place]: ??Crow 2002: ??71-77. [facility] 09/16/2015 10:0 2 AM EDT Chasidy Martino MD PATHOLOGY/CYTOLOGY ORDERABLES Performing Organization Address [facility]/[place] Co de Phone Number [facility] * (ABNORMAL) HPV (09/16/2015 10:02 AM EDT) HPV16 POSITIVE(A) [facility] HPV [facility]IVE [facility] Other HR POSITIVE(A) [facility] HPV Interpretation POSITIVE for high-risk HPV* (Type [...] HPV Testing - Cytology Liquid Based Prep [facility] Cervical swab (specimen) 09/16/2015 10:02 AM EDT 09/17/2015 2:56 PM EDT Narrative Resulting Agency Comment Spec In Lab Chasidy Martino MD PATHOLOGY/CYTOLOGY ORDERABLES Performing Organization Address [facility] de Phone Number [facility] * Cytopathology Gynecological (09/16/2015 10:02 AM EDT) AP Specimen 09/16/2015 10:0 2 AM EDT 09/16/2015 10:02 AM EDT Narrative [facility] - 09/16/2015 10:02 AM EDT Specimen requisition ordered. ??Separate Pathology report to follow Chasidy Martino MD PATHOLOGY/CYTOLOGY ORDERABLES Performing Organization Address [facility]/[place] Co de Phone Number [facility] documented in this encounter Visit Diagnoses Diagnosis Cervical high risk HPV (human papillomavirus) test positive Cervical high risk human papillomavirus (HPV) DNA test positive documented in this encounter Care Teams Building Maintenance Custodian Relationship Specialty Start Date End Date Tita Pettit MD [address] [place] [address] PCP - General 05/11/15 documented as of this encounter
--- OUTSIDE RECORDS SUMMARY | 2024-07-17 01:49 | XMS_ITS | Encounter Summary ---
Author Organization [facility] Address [facility] [place] [address] Care Team Providers Care Instructor Looping Name Role Phone Tita Pettit MD Primary Care Provider [phone] Encounter Details Date Type Department Care Team (Late st Contact Info) Description 03/29/2022 2:20 PM EDT Office Visit Dermatology at [facility] [address] [place] [address] Marycruz Freeman MD [facility] [address] LATONYA [place] [address] [place] (actinic keratosis); Multiple benign nevi; Seborrheic keratoses; Lentigines; Srinivasan angioma; Notalgia paresthetica Social History Tobacco Use Types Packs/Day Years Used Date Smoking Tobacco: Never Smokeless Tobacco: Never Sex and Gender Information Value Date Recorded Sex Assigned at Not on file Gender Identity Not on file Sexual Orientation Not on file documented as of this encounter Progress Notes * Marycruz [place] - 03/29/2022 2:20 PM EDT Images from the original note were not included. DEPARTMENT OF DERMATOLOGY Medical Dermatology Clinic Provider: Marycruz Freeman MD Patient's preferred name Georgiana Preferred contact method for results []Phone []myD-H []Letter Detailed phone message OK? Are there any other people with whom we may discuss your care? Past Medical History Date, location, treatment Melanoma no Dysplastic nevi no SCC no BCC no AKs LN2 UV Exposure & Protection N Other relevant past medical history Family History Details Melanoma PGM NMSC no Other relevant family history Social History Occupation: retired teacher Hobbies: Other: has 4 children, live in [place], [place], [place], and [place] Pre-Procedure Screening Details Allergy to lidocaine, epinephrine, Dermabond, chlorhexidine, or adhesives Bleeding disorder or blood thinners Implanted devices (Pacemaker, defibrillator, deep brain stimulator, cochlear implant) History of Present Illness: Georgiana Pena-Abiola is a 71 y.o. Patient returns to clinic today for afull skin exam. - recheck spot on the back, denies noticing any changes. Asymptomatic. 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 - spot on the right arm, just noticed today, asymptomatic Last visit at Dermatology: 03/30/2020 Last visit with this provider: Visit date not found Medications: Reviewed in eD-H Allergies: Reviewed in eD-H Skin Examination: Full skin examination: Patient asked to undress to their comfort level. Verbalized that the provider's preference is that patient remove all clothing and that the provider will not examine areas patient elects to keep covered. Examination of the scalp, hair, head, face, ears, neck, chest, axillae, abdomen, back, buttocks, and upper and lower extremities was normal with the exception of the findings below. Genitalia not examined. Assessment/Plan #. Actinic Keratosis - Scaly irregular pink papules located on right superior eyebrow, right restorationism, nose x 2, left cheek. - Discussed etiology and treatment options with patient - Joint decision to pursue LN2 x 2 to lesion. Advised to return if lesion(s) do not resolve. Procedure Note: Procedure: Destruction of lesions with cryotherapy. Number: 5 Location: as above Discussed procedure and expectations including risks (including risk of hypopigmentation) and benefits. Verbal consent obtained. Frozen with LN2, 15-30 second thaw time, TWICE. There were no complications; the patient tolerated the procedure well. Post-procedure expectations and wound care were reviewed. #. Benign Nevi - Scattered medium-brown macules and papules on the trunk and extremities. - Reassured of benign appearance on exam today. #. Seborrheic Keratoses - Scattered brown and flesh colored waxy stuck on plaques located on the trunk and extremities - Reassured of benign nature #. Solar Lentigines - Light-brown evenly pigmented, well-demarcated macules on sun exposed areas ofthe skin. - Patient reassured of benign nature. #. Srinivasan Angiomas - Multiple bright red, well-demarcated papules on the abdomen, chest, and back - Reassured of benign nature #. 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 - Discussed diagnosis and possible relationship to irritated/inflamed nerve causing itching sensation - can try OTC Sarna BID-QID to affected areas Other: ??? Sun protection discussed (protective clothing and SPF30+ broad-spectrum sunscreen) RTC: 1 yr for FSE []Note routed to laboratory secretary [x]Recall placed in scheduling system []Appointment scheduled at checkout Scribe attestation: Devi Mendez [facility] has performed the documentation for this encounter in thepresence of and acting as a scribe for Marycruz [place] MD. I performed the above scribed service and agree with the accuracy of the documentation in this encounter. Reviewed and signed by: Marycruz [place] MD Dermatology [facility] Patient seen and evaluated with staff deputy clerk of court: Wyatt Chacko MD Dermatology [facility] * Wyatt Chacko MD - 03/29/2022 2:20 PM EDT I directly supervised Dr. Freeman during this office visit. Dr. Freeman presented the history and physical exam to me. I, then, saw and examined this patient with Dr. Freeman. We reviewed the history and pertinent details and I confirmed the physical findings. I agree with the details of the history and physical exam as documented in Dr. Freeman's note. WYATT CHACKO MD Staff Physician documented in this encounter Plan of Treatment Upcoming Encounters Date Type Department Care Team (Late st Contact Info) Description 09/30/2024 9:20 AM EST Office Visit Dermatology at [facility] [address] [place] [address] documented as of this encounter Visit Diagnoses Diagnosis AK (actinic keratosis) Actinic keratosis Multiple benign nevi Benign neoplasm of skin, site unspecified Seborrheic keratoses Lentigines Other dyschromia Srinivasan angioma Nevus, non-neoplastic Notalgia paresthetica Disturbance of skin sensation documented in this encounter Care Teams Instructor Looping Relationship Specialty Start Date End Date Tita Pettit MD [address] [facility] [place] [address] PCP - General 05/11/15 documented as of this encounter
--- OUTSIDE RECORDS SUMMARY | 2024-07-17 01:49 | XMS_ITS | Encounter Summary ---
Author Organization [facility] Address [facility] [place] [address] Care Team Providers Care Head Well Puller Name Role Phone Tita Pettit MD Primary Care Provider [phone] Encounter Details Date Type Department Care Team (Late st Contact Info) Description 03/26/2021 Telephone Dermatology at [facility] [address] [place] [address] Celine Duarte MD [facility] [place] [address] Social History Tobacco Use Types Packs/Day Years Used Date Smoking Tobacco: Never Smokeless Tobacco: Never Sex and Gender Information Value Date Recorded Sex Assigned at Not on file Gender Identity Not on file Sexual Orientation Not on file documented as of this encounter Miscellaneous Notes * Telephone Encounter - Mayi Ramirez - 03/26/2021 3:29 PM EDT I spoke with Georgiana [place] this afternoon regarding her 1 year FSE follow up with Dr. Duarte. Patient is going to call back when she has other medical appointments scheduled to coordinateall needed appointments around the same time (mid May). documented in this encounter Plan of Treatment Upcoming Encounters Date Type Department Care Team (Late st Contact Info) Description 09/30/2024 9:20 AM EST Office Visit Dermatology at [address] [place] [address] documented as of this encounter Visit Diagnoses Not on filedocumented in this encounter Care Teams Head Well Puller Relationship Specialty Start Date End Date Tita Pettit MD [address] [place] [address] PCP - General 05/11/15 documented as of this encounter
--- OUTSIDE RECORDS SUMMARY | 2024-07-17 01:49 | XMS_ITS | Encounter Summary ---
[place] [address] Care Team Providers Care Fisher Trot Line Name Role Phone Tita Pettit MD Primary Care Provider [phone] Encounter Details Date Type Department Care Team (Late st Contact Info) Description 06/15/2004 [place] [address] Tita Pettit MD [address] [place] [address] Social History Tobacco Use Types Packs/Day Years [...] 9:20 AM EST Office Visit Dermatology at [facility] [address] [place] [address] documented as of this encounter Procedures Procedure Name Priority Date/Time Associated Diagnosis Comments SURGICAL PATHOLOGY REPORT Routine 06/15/2004 5:28 PM EDT documented in this encounter Results * Surgical Pathology Report (06/15/2004 5:28 PM EDT) Surgical Pathology Report ? Location: The signing pathologist has (i) examined the relevant preparation(s) for the specimen(s) and (ii) rendered or confirmed the diagnosis(es). . ?Pathology Surgical Pathology Final Report Clinical Information Specimen Submitted: A - Endometrial Bx. Clinical History: Postmenopausal bleeding; PMB Secondary to herbal prep. Gross Description Labeled/Fixativ e: ? Labeled with the patient's name and medical record ?number, formalin. Qty/Size/Weight : ?Fragments of conroy soft tissue and mucus, aggregating ?1.5 x 0.1 x 0.2 cm. Sections/Proces sing: ??(T1) ??aje/PPS Microscopic Description Slides reviewed, microscopic description not recorded. Diagnosis Endometrial biopsy: ?? 1. ??Fragmented benign inactive endometrium intermixed with cervical ? mucus. ?? 2. ??No evidence of hyperplasia or endometritis. CR-0 06/18/04 [facility] 06/21/04 Verified by: ? Jose Roque MD ?Pathologist ?(Electronic Signature) The attending pathologist whose signature appears on this report has reviewed all diagnostic slides and has edited the gross and/or microscopic portion of the report in rendering the final pathologic diagnosis. LOUISE GUTIERREZ 06/15/2004 5:28 PM EDT Tita Pettit MD PATHOLOGY/CYTOLOGY ORDERABLES LOUISE GUTIERREZ documented in this encounter Visit Diagnoses Not on filedocumented in this encounter Care Teams Fisher Trot Line Relationship Specialty Start Date End Date Tita Pettit MD [address] [place] [address] [address] [place] [address] PCP - General 05/11/15 documented as of this encounter
--- NOTE | 2024-07-17 08:00 | DI.US_ITS ---
Exam(s) US THYROID EXAM: US THYROID CLINICAL HISTORY: h/o thyroid surgery,z98.890. TECHNIQUE: Ultrasound thyroid performed using standard protocol. COMPARISON: US US THYROID from 08/01/2023 FINDINGS: This 73-year-old patient has undergone prior left hector thyroidectomy in [place] which was not for berlin gnancy. She had wedging describes as a large corner which was compressing adjacent structures. On today's study the left thyroid lobe is again noted be surgically absent and there are no abnormal masses nor lymphadenopathy on the left side. RIGHT THYROID LOBE: Measures 1.6 cm AP x 1.7 cm wide x 5.0 cm craniocaudal There are multiple nodules in the right lobe again noted with 2 again being dominant and measured/gra ded as below Nodule #1. This is the more superior of the 2 nodules Size: This nodule measures approximately 1.6 x 0.9 x 1.4 cm Tirads grading of this nodule is as follows: Composition: Mixed mhyvz-razmsu-2 point Echogenicity: Solid components are isoechoic to surrounding gland-1 point Shape: Wider than taller in the transverse plane-0 points Margin: Indistinct-0 points Echogenic Foci: Contains punctate echogenic foci-3 points Total Points for this nodule: 5 ACR Ti-Rads Category: TR4 The solid components of this nodule should undergo ultrasound-guided FNA as this TR 4 level nodule me asures slightly greater than 1.5 cm With regards to the 2nd (more caudally located) nodule in the right lobe: Size: This nodule measures 2.6 x 1.6 x 1.7 cm Composition: Mixed cystic-solid- 1 point Echogenicity: Solid components are isoechoic to surrounding parenchyma-1 point Shape: Wider than taller- 0 points Margin: Hoe-vevrucs-3 points Echogenic Foci: Contains a few punctate echogenic foci-3 points Total points for this nodule: 5 ACR Ti-Rads Category: TR4 Solid components of this nodule should undergo ultrasound-guided FNA as this TR 4 level nodule measur es greater than 1.5 cm LYMPH NODES: There is no significant adenopathy. IMPRESSION: 1. Left thyroid lobe is again noted to be surgically absent ([place]; no history of malignancy) 2. There are 2 dominant right-sided nodules as discussed above. Both of these nodules qualify for ul trasound-guided FNA of their solid components as both register as TiRads 4 level nodules and both jeni sure greater than 1.5 cm. 3. There is no significant lymphadenopathy. DATA REPOSITORY:
== END 2024-07-17 02:06 ==
LOC: DI 01:46
PROVIDERS: PCP Family Medicine; Visit Provider Family Medicine
DX: Z98.890 Other specified postprocedural states (principal)
CPT/HCPCS: 76536

== ENCOUNTER 2024-07-30 07:39 | Outpatient (CLI) | payer MEDICARE, SELFPAY ==
[2024-07-30 07:38] LABS: HCT 46.6 % (36.0-46.0); HGB 16.3 g/dL (11.2-15.7); MCH 32.3 pg (27.0-33.0); MCV 92 fL (80-95); MPV 9.2 fL (8.0-11.0); Platelet Count 258 10^3/uL (130-400); RBC 5.05 10^6/uL (3.93-5.22); RDW 12.6 % (11.7-14.6); RDW-SD 42.7 fL; WBC 7.35 10^3/uL (4.4-10.8)
[2024-07-30 07:57] LABS: Hemoglobin A1C 5.7 % (<5.7)
[2024-07-30 08:34] LABS: ALT 32 U/L (14-59); AST 17 U/L (15-37); Alkaline Phosphatase 118 U/L (46-116); Anion Gap 8.2 mmol/L (3-11); BUN 14 mg/dL (7-18); Bilirubin, Total 0.78 mg/dL (0.2-1.0); CO2 28.8 mmol/L (21.0-32.0); CREATININE 0.8 mg/dL (0.55-1.02); Calcium 9.4 mg/dL (8.5-10.1); Calculated LDL 163 mg/dL (<100); Chloride 103 mmol/L (98-107); Cholesterol 249 mg/dL (<200); Estimated GFR 77.75 (mL/min/1.73m2); Glucose 124 mg/dL (74-106); HDL Cholesterol 49 mg/dL (40-60); Potassium 4.2 mmol/L (3.5-5.1); Sodium 140 mmol/L (136-145); TSH (W/Ref FT4) 8.93 uIU/mL (0.36-3.74); Triglyceride 188 mg/dL (<150)
[2024-07-30 08:54] LABS: FREE T4 0.69 ng/dL (0.76-1.46)
[2024-07-30 18:41] LABS: T3, Total 134 ng/dL (97-169)
[2024-07-31 11:08] LABS: Lyme Ab w Rflx to Lyme Confirm Negative (Negative)
[2024-08-01 22:20] LABS: T3,Free 3.5 pg/mL (2.8-5.3)
[2024-08-01 23:21] LABS: Anaplasma phagocytophilum Negative (Negative); B. miyamotoi PCR Negative (Negative); Babesia divergens/MO-1 Negative (Negative); Babesia duncani Negative (Negative); Babesia microti Negative (Negative); Ehrlichia chaffeensis Negative (Negative); Ehrlichia ewingii/canis Negative (Negative); Ehrlichia muris eauclairensis Negative (Negative)
== END 2024-07-30 07:40 | disposition home or self-care (01) ==
LOC: LBO 07:39
PROVIDERS: PCP Family Medicine; Visit Provider Family Medicine
DX: E11.9 Type 2 diabetes mellitus without complications; Z13.0 Encounter for screening for diseases of the blood and blood-forming organs and certain disorders involving the immune mechanism; I10 Essential (primary) hypertension; Z98.890 Other specified postprocedural states; S30.860A Insect bite (nonvenomous) of lower back and pelvis, initial encounter; W57.XXXA Bitten or stung by nonvenomous insect and other nonvenomous arthropods, initial encounter; E03.9 Hypothyroidism, unspecified
CPT/HCPCS: 36415; 80053; 80061; 85027; 86141; 87798; 83036; 84439; 84443; 84480; 84481; 86618

== ENCOUNTER 2025-04-22 16:05 | Outpatient (REF) | payer MEDICARE, SELFPAY ==
--- NOTE | 2025-04-22 11:00 | PAPFT_PTH ---
PATIENT: Georgiana Moncada LOC: [facility]#:[id number] AGE/SX: 74/F ROOM: RE04/22/[address]: Tita P[place]it [place], DC : 1950 BED: DIS: 04/22/2025 SPEC #: [id number] RECD: 04/23/25 13:10 STATUS: NELLA REPaul #: [id number] JESS: 04/22/25 11:[address]: Tita Pettit DEPT: [facility] Cytology RECD BY: Pia Nobles Tissues: 1 - CX/ENDOCX FOR PAP SMEARS Procedures: PAP THIN PREP/UVM Screening HPV DNA PROBE Comments: [id number] (HPV 16 & 18/45)
== END 2025-04-22 16:06 | disposition home or self-care (01) ==
LOC: LBN 16:05
PROVIDERS: PCP Family Medicine; Visit Provider Family Medicine
DX: Z11.51 Encounter for screening for human papillomavirus (HPV) (principal); Z01.419 Encounter for gynecological examination (general) (routine) without abnormal findings; R87.610 Atypical squamous cells of undetermined significance on cytologic smear of cervix (ASC-US)
CPT/HCPCS: 88142; 87624

== ENCOUNTER 2025-10-02 02:11 | Outpatient (CLI) | payer MEDICARE, SELFPAY ==
[2025-10-02 07:36] LABS: HCT 44.9 % (36.0-46.0); HGB 15.6 g/dL (11.2-15.7); MCH 32.0 pg (27.0-33.0); MCHC 34.7 % (32.0-36.0); MCV 92 fL (80-95); MPV 9.2 fL (8.0-11.0); Platelet Count 265 10^3/uL (130-400); RBC 4.87 10^6/uL (3.93-5.22); RDW 12.5 % (11.7-14.6); RDW-SD 42.4 fL; WBC 7.14 10^3/uL (4.4-10.8)
[2025-10-02 08:24] LABS: Iron 164 ug/dL (50-170)
[2025-10-02 15:41] LABS: Hemoglobin A1C 5.9 % (<5.7)
[2025-10-02 18:25] LABS: T3,Free 3.3 pg/mL (2.8-5.3)
[2025-10-02 19:49] LABS: ALT 38 U/L (10-49); AST 32 U/L (<34); Albumin 4.6 g/dL (3.4-5.0); Alkaline Phosphatase 122 U/L (46-116); Anion Gap 9.6 mmol/L (3-11); BUN 15 mg/dL (9-23); Bilirubin, Total 1.40 mg/dL (0.2-1.2); CO2 25.4 mmol/L (20.0-31.0); Calcium 9.9 mg/dL (8.3-10.6); Chloride 103 mmol/L (98-107); Glucose 111 mg/dL (74-106); Potassium 4.4 mmol/L (3.5-5.1); Sodium 138 mmol/L (136-145); Total Protein 7.5 g/dL (5.7-8.2)
[2025-10-02 19:53] LABS: TSH 9.91 uIU/mL (0.55-4.78)
[2025-10-02 19:54] LABS: Vitamin D 25 Total 56 ng/mL (30-100)
[2025-10-02 19:55] LABS: Ferritin 122 ng/mL (7-271); Vitamin B12 389 pg/mL (211-911)
[2025-10-02 21:59] LABS: Hepatitis C Ab w Rflx HCV PCR Negative (Negative)
== END 2025-10-02 02:12 | disposition home or self-care (01) ==
LOC: LBO 02:11
PROVIDERS: PCP Family Medicine; Visit Provider Family Medicine
DX: R79.89 Other specified abnormal findings of blood chemistry (principal); E53.8 Deficiency of other specified B group vitamins; E55.9 Vitamin D deficiency, unspecified; Z98.890 Other specified postprocedural states; D58.2 Other hemoglobinopathies; E11.9 Type 2 diabetes mellitus without complications; Z11.59 Encounter for screening for other viral diseases
CPT/HCPCS: 36415; 80053; 82306; 85027; 86803; 82607; 82728; 83036; 83540; 84439; 84443; 84481

== ENCOUNTER → 2025-10-02 02:21 | Outpatient (CLI) | payer MEDICARE, SELFPAY ==
--- NOTE | 2025-10-02 06:30 | DI.US_ITS ---
Exam(s) US THYROID EXAM: US THYROID CLINICAL HISTORY: h/o thyroid surgery,thyroid nodule,e04.1,z98.890. TECHNIQUE: Ultrasound thyroid performed using standard protocol. COMPARISON: US US THYROID from 07/17/2024 This 75-year-old patient has previously undergone prior left hemithyroidectomy in [place] in 2019 which was not for malignancy. She apparently had prominent goiter which was compressing structures requiring removal. FINDINGS: The left thyroid lobe and most of the isthmus are again noted be surgically absent. There are no new findings on the left side. RIGHT THYROID LOBE: Measures 1.8 cm AP x 2.0 cm wide x 5.4 cm craniocaudal The right lobe again noted to contain multiple nodules with the previously described 2 dominant nodules again focused upon. Nodule #1. This is the more superior of the 2 nodules. Size: Measures 1.2 x 0.7 x 0.9 cm Composition: Mixed uqhfc-zlznhx-8 point Echogenicity: Isoechoic-1 point Shape: Wider than taller-0 points Margin: Indistinct-0 points Echogenic Foci: None-0 points Total Points for this nodule: 2 ACR Ti-Rads Category: TR2 This nodule can be followed conservatively. Nodule #2 this is the larger of the 2 nodule and is located more inferiorly. Size: Measures 2.5 x 1.5 x 2.3 cm Composition: Mixed cystic-solid- 1 point Echogenicity: Hypoechoic- 2 points Shape: Wider than taller- 0 points Margin: Indistinct-0 points Echogenic Foci: Appears to contain punctate echogenic foci-3 points Total points for this nodule: 6 ACR Ti-Rads Category: TR4 This TR 4 level nodule should undergo ultrasound-guided FNA as it measures greater than 1.5 cm. LYMPH NODES: There are few small benign-appearing lymph nodes. No significant lymphadenopathy.. IMPRESSION: 1. The more inferior of the 2 nodules in the right lobe qualifies for ultrasound-guided FNA as it is a TR 4 level nodule and measures greater than 1.5 cm. 2. Left thyroid no is again noted be surgically absent. 3. There is no significant lymphadenopathy. DATA REPOSITORY:
== END ==
LOC: DI 02:21
PROVIDERS: PCP Family Medicine; Visit Provider Family Medicine
DX: Z98.890 Other specified postprocedural states (principal); E04.1 Nontoxic single thyroid nodule
CPT/HCPCS: 76536